=== PATIENT | female | born 1940 | race Caucasian/White ===

== ENCOUNTER 2021-10-25 18:44 | Inpatient (IN) ==
--- NOTE | 2021-10-25 19:31 | Emergency Department Note ---
Impression & Plan CHF (congestive heart failure), Hypertension, Hyperlipidemia, Diabetes ED Provider Note NAME: YVONNE CARTER AGE: 81 SEX: F : 1940 ARRIVES VIA: Walk-In INFORMANT: Patient, ED PROVIDER(S): Reynaldo Swanson MD Chief Complaint: Shortness of breath HPI: Patient presents due to concern for shortness of breath. The patient recently has moved from [place] to live with her daughter who lives locally in the [facility]. She has been taking her medications and reportedly does have a history of hypertension, hyperlipidemia, diabetes, and heart failure. She was diagnosed with fluid on her legs and has been complaining of some orthopnea. The patient does not complain of any cough or fever. 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 They have been doing daily dressing changes. During the move they did drive recently and were unable to find the medications that they had packed but the patient has had her standard medications in her purse. She does take a diuretic. The patient does not have any established care here in the [facility]. No reported fevers or chills. ROS: See HPI for pertinent positives and negatives. A total of 10 systems were reviewed and otherwise negative. Past medical history: See below Surgical history: See below Social history: See below Physical Exam: GENERAL: NAD, wearing a mask, non-toxic. EYE EXAM: Normal conjunctiva. PERRL, no anisocoria and EOM's grossly intact w/o pain. NECK: Supple, no nuchal rigidity, no adenopathy, non-tender. No signs of meningismus. FROM of the neck with good chin to chest and neck extension. No st ridor. Chest: Device in left chest. LUNGS: Bibasilar crackles. Normal chest wall mechanics. HEART: NSR, no MRG. ABDOMEN: Abdomen soft, non-tender, normo-active bowel sounds, no masses, no rebound or guarding. BACK: No CVA TTP. SKIN: No rashes and no bruising. UPPER EXTREMITIES: Upper extremities are grossly normal. LOWER EXTREMITIES: Right lower extremity with mild edema, left lower extremity with left BKA with healing incisional site. NEURO EXAM: A&O x3, cranial nerves II-XII grossly intact, normal speech, moves all 4 extremities. Differential diagnoses: Reactive airway disease, pneumonia, pneumothorax, COPD, CHF, infections, cardiac ischemia, pulmonary embolism, musculoskeletal, gastroin testinal, as well as other pathologies. Course: Patient was seen and evaluated the bedside. Full history physical exam was performed. EKG interpreted by V paced rhythm, rate of 80, wide QRS, left axis deviation. Imaging Studies: See Below Cardiac monitoring: An order was placed for continuous cardiac monitoring. The monitor shows a rate of 82 with sinus rhythm. MDM: Patient was seen due to concern for shortness of breath and orthopnea. Blood work obtained along with an EKG troponin chest x-ray and BNP. Patient's blood work did show elevation in BNP and positive troponin. The pat ient does have a paced rhythm with no priors for comparison. I did give the on- call hospitalist and the patient was admitted to medicine service by Dr. Burton. Past Med/Surg History Medical History CHF (congestive heart failure) Diabetes Hyperlipidemia Hypertension Surgical History History of left below knee amputation Pacemaker Family History Other No significant family history Social History Smoking Status: Former smoker Second Hand Exposure: No; Do You Dip or Chew Tobacco: No; Hx Alcohol Use: No Hx Substance Use: No Preferred Language: Portuguese Communication Ability: curriculum and assessment director Required: Yes Beliefs That Will Affect Care: None Current Living Situation: Family Other Information That Helps Us Care for You: No Feels Safe at Home: Yes Safety Concerns: Feels Safe At This Time Assistive Devices: Glasses, Walker and Wheelchair Allergies Allergies Allergy/AdvReac Type Severity Reaction Status Date / Time No Known Allergies Allergy Unverified 10/25/21 21:59 Home Meds Home Medications Medication Instructions Recorded Confirmed apixaban 5 mg tablet (Eliquis) 5 mg PO DAILY 10/25/21 10/25/21 atorvastatin 20 mg tablet 20 mg PO DAILY 10/25/21 10/25/21 enalapril 10 1 tab PO DAILY 10/25/21 10/25/21 mg-hydrochlorothiazide 25 mg tablet metformin 500 mg tablet 500 mg PO BID 10/25/21 10/25/21 Results & Data (ED) Vital Signs Vital Signs - 24 hr 10/25/21 18:51 10/25/21 19:51 10/25/21 21:50 Temperature 36.5 C Temperature Source Temporal Artery Scan Pulse Rate 77 Pulse Rate [Finger] 80 80 Pulse Rhythm Regular Pulse Strength Normal Respiratory Rate 16 18 18 Respiratory Effort / Characteristics Non-Labored Spontaneous Respiratory Depth Normal Respiratory Pattern Regular Blood Pressure 134/61 Blood Pressure [Right Arm] 138/60 138/61 Blood Pressure Mean 85 Blood Pressure Mean [Right Arm] 86 86 Blood Pressure Position Sitting Pulse Oximetry 90 100 98 Oxygen Delivery Method Room Air Room Air Room Air Sepsis Recent Fever Within 48 Hours No Sepsis New/Unexplained Change in Mental Status No Sepsis Action Taken by Nursing No Action Required Home Medications Current Medication List: was personally reviewed by me Laboratory Data Attestation: I reviewed the patient's lab results. Result diagrams: 10/26/21 04:17 10/26/21 02:39 Lab Results 10/25/21 10/25/21 10/25/21 Range/Units 19:53 19:53 19:53 WBC 4.63 L (4.8-10.8) K/ul RBC 3.75 L (3.93-5.22) M/uL Hgb 10.0 L (12.0-16.0) g/dl Hct 32.9 L (34.1-44.9) % MCV 87.7 (80.0-100.0) fL MCH 26.7 (25.0-34.0) pg MCHC 30.4 L (32.0-36.0) g/dL RDW Std Deviation 69.6 H (36.4-46.3) fL RDW Coeff of Edwardo 21.5 H (11.5-14.5) % Plt Count 195 (130-400) K/uL MPV 12.1 (9.4-12.3) fL Immature Gran % (Auto) 0.2 % Neut % (Auto) 51.5 % Lymph % (Auto) 40.8 % Hardin % (Auto) 6.5 % Eos % (Auto) 0.6 % Baso % (Auto) 0.4 % Neut # (Auto) 2.38 (1.4-6.5) K/uL Lymph # (Auto) 1.89 (1.2-3.4) K/uL Hardin # (Auto) 0.30 (0.24-0.82) K/uL Eos # (Auto) 0.03 (0-0.50) K/uL Baso # (Auto) 0.02 (0-0.2) K/uL Immature Gran # (Auto) 0.01 (0.00-0.02) K/uL Giant Platelets 1+ Polychromasia 1+ Anisocytosis Present Ovalocytes 1+ PT 11.7 (9.0-12.0) Seconds INR 1.1 (0.9-1.1) APTT 24.7 (21.0-31.0) Seconds PTT Ratio 0.9 Sodium 138 (136-145) mmol/L Potassium 3.2 L (3.5-5.1) mmol/L Chloride 102 (98-107) mmol/L Carbon Dioxide 26 (21-32) mmol/L Anion Gap 10 (3-11) BUN 18 (6-23) mg/dl Creatinine 0.97 (0.6-1.2) mg/dl Est Cr Clr Drug Dosing 33.2 ml/min Est GFR ( Amer) 63.9 ml/min Est GFR (Non-Af Amer) 55.2 ml/min BUN/Creatinine Ratio 18.6 (10-20) Glucose 132 H (70-99(Fasting)) mg/dl Calcium 9.4 (8.5-10.1) mg/dl Magnesium 1.8 (1.7-2.4) mg/dl Total Bilirubin 1.1 H (0.2-1.0) mg/dl AST 20 (13-39) U/L ALT 7 (7-52) U/L Alkaline Phosphatase 90 (34-104) U/L Troponin I High Sens 18.7 H (0-14) pg/ml B-Natriuretic Peptide (0-100) pg/ml Total Protein 8.3 (6.0-8.3) gm/dl Albumin 3.5 (3.4-5.0) gm/dl Globulin 4.8 H (2.5-4.0) gm/dl Albumin/Globulin Ratio 0.7 L (0.9-2) SARS-CoV-2, RNA, NAAT (NEGATIVE) 10/25/21 10/25/21 Range/Units 20:22 20:23 WBC (4.8-10.8) K/ul RBC (3.93-5.22) M/uL Hgb (12.0-16.0) g/dl Hct (34.1-44.9) % MCV (80.0-100.0) fL MCH (25.0-34.0) pg MCHC (32.0-36.0) g/dL RDW Std Deviation (36.4-46.3) fL RDW Coeff of Edwardo (11.5-14.5) % Plt Count (130-400) K/uL MPV (9.4-12.3) fL Immature Gran % (Auto) % Neut % (Auto) % Lymph % (Auto) % Hardin % (Auto) % Eos % (Auto) % Baso % (Auto) % Neut # (Auto) (1.4-6.5) K/uL Lymph # (Auto) (1.2-3.4) K/uL Hardin # (Auto) (0.24-0.82) K/uL Eos # (Auto) (0-0.50) K/uL Baso # (Auto) (0-0.2) K/uL Immature Gran # (Auto) (0.00-0.02) K/uL Giant Platelets Polychromasia Anisocytosis Ovalocytes PT (9.0-12.0) Seconds INR (0.9-1.1) APTT (21.0-31.0) Seconds PTT Ratio Sodium (136-145) mmol/L Potassium (3.5-5.1) mmol/L Chloride (98-107) mmol/L Carbon Dioxide (21-32) mmol/L Anion Gap (3-11) BUN (6-23) mg/dl Creatinine (0.6-1.2) mg/dl Est Cr Clr Drug Dosing ml/min Est GFR ( Amer) ml/min Est GFR (Non-Af Amer) ml/min BUN/Creatinine Ratio (10-20) Glucose (70-99(Fasting)) mg/dl Calcium (8.5-10.1) mg/dl Magnesium (1.7-2.4) mg/dl Total Bilirubin (0.2-1.0) mg/dl AST (13-39) U/L ALT (7-52) U/L Alkaline Phosphatase (34-104) U/L Troponin I High Sens (0-14) pg/ml B-Natriuretic Peptide 1179 H (0-100) pg/ml Total Protein (6.0-8.3) gm/dl Albumin (3.4-5.0) gm/dl Globulin (2.5-4.0) gm/dl Albumin/Globulin Ratio (0.9-2) SARS-CoV-2, RNA, NAAT NEGATIVE (NEGATIVE) Administered Medications Acetaminophen (Acetaminophen 325 Mg Tab) 650 mg PO Q4H PRN PRN Reason: pain/fever Stop: 11/25/21 00:23 Last Admin: 10/26/21 09:28 Dose: 650 mg Documented By: JEANNINE Apixaban (Apixaban 2.5 Mg Tab) 2.5 mg PO BID [place] Stop: 11/25/21 08:59 Last Admin: 10/26/21 09:26 Dose: 2.5 mg Documented By: JEANNINE Atorvastatin Calcium (Atorvastatin 20 Mg Tab) 20 mg PO DAILY [place] Stop: 11/25/21 08:59 Last Admin: 10/26/21 09:10 Dose: 20 mg Documented By: JEANNINE Enalapril Maleate (Enalapril Maleate 10 Mg Tab) 10 mg PO DAILY [place] Stop: 11/25/21 08:59 Last Admin: 10/26/21 09:10 Dose: 10 mg Documented By: JEANNINE Furosemide (Furosemide 40 Mg/4 Ml Vial) 40 mg IV DAILY [place] Stop: 11/25/21 08:59 Last Admin: 10/26/21 09:11 Dose: 40 mg Documented By: JEANNINE Hydrochlorothiazide (Hydrochlorothiazide 25 Mg Tab) 25 mg PO DAILY [place] Stop: 11/25/21 08:59 Last Admin: 10/26/21 09:10 Dose: 25 mg Documented By: JEANNINE Insulin Aspart (Insulin Aspart Per Unit) 0 units SC ACHS [place] Stop: 11/25/21 07:29 Last Admin: 10/26/21 13:02 Dose: Not Given Documented By: Admin: 10/26/21 09:08 Dose: Not Given Documented By: JEANNINE Magnesium Oxide (Magnesium Oxide 400 Mg Tab) 400 mg PO QAM [place] Stop: 10/27/21 22:29 Last Admin: 10/26/21 09:09 Dose: 400 mg Documented By: Admin: 10/26/21 02:18 Dose: 400 mg Documented By: BCEnedelia Discontinued Medications Furosemide (Furosemide 40 Mg/4 Ml Vial) 40 mg IV ONE ONE Stop: 10/25/21 21:27 Last Admin: 10/25/21 22:25 Dose: 40 mg Documented By: TRH Potassium Chloride (Potassium Chloride Crtab 20 Meq Tabcr) 40 meq PO NOW STA Stop: 10/25/21 21:27 Last Admin: 10/25/21 22:24 Dose: 40 meq Documented By: TRH Imaging Data Radiologist's Impression: Chest X-Ray 10/25/21 20:01 XR chest 1V portable HISTORY: 81 years-old Female Dyspnea acute shortness of breath COMPARISON: None TECHNIQUE: AP view of the chest FINDINGS: The cardiac silhouette is enlarged. Left subclavian pacer. Atherosclerosis of the thoracic aorta. No pneumothorax or overt pulmonary edema. Trace pleural effusions with mild left basilar densities. Degenerative changes of the shoulders and spine. IMPRESSION: 1. Cardiomegaly without overt pulmonary edema. 2. Trace pleural effusions with mild left basilar opacities, likely atelectatic. ACT 112: Negative or not required by law. The above report was generated using voice recognition software. It may contain grammatical, syntax or spelling errors. Electronically signed by: Allen Mcclellan M.D. 10/26/2021 8:23 AM Discharge Plan Visit Data Chief Complaint: Pain (Generalized) Stated Complaint: GENERAL PAIN ED Provider: Reynaldo Swanson Discharge Problem: CHF (congestive heart failure), Hypertension, Hyperlipidemia, Diabetes Patient Disposition: Admitted As Inpatient Discharge Instructions Interventions: ED Discharge Assessment Last Done: 10/25/21 23:18
[2021-10-25 20:21] LABS: Hematocrit (blood only) 32.9 % (34.1-44.9); Mean Corpuscular Hemoglobin 26.7 pg (25.0-34.0); Mean Corpuscular Hgb Conc 30.4 g/dL (32.0-36.0); Mean Corpuscular Volume 87.7 fL (80.0-100.0); RDW Coefficient of Variation 21.5 % (11.5-14.5); RDW Standard Deviation 69.6 fL (36.4-46.3); Red Blood Count 3.75 M/uL (3.93-5.22); White Blood Count 4.63 K/ul (4.8-10.8)
[2021-10-25 20:26] LABS: Mean Platelet Volume 12.1 fL (9.4-12.3); Platelet Count 195 K/uL (130-400)
[2021-10-25 20:41] LABS: Anisocytosis Present; Basophils # (auto) 0.02 K/uL (0-0.2); Basophils % (auto) 0.4 %; Eosinophils # (auto) 0.03 K/uL (0-0.50); Eosinophils % (auto) 0.6 %; Giant Platelets 1+; Immature Granulocytes # (auto) 0.01 K/uL (0.00-0.02); Immature Granulocytes % (auto) 0.2 %; Lymphocytes # (auto) 1.89 K/uL (1.2-3.4); Lymphocytes % (auto) 40.8 %; Monocytes % (auto) 6.5 %; Neutrophils # (auto) 2.38 K/uL (1.4-6.5); Neutrophils % (auto) 51.5 %; Ovalocytes 1+; Polychromasia 1+
[2021-10-25 20:52] LABS: Troponin I High Sensitivity 18.7 pg/ml (0-14)
[2021-10-25 20:53] LABS: Albumin Globulin Ratio 0.7 (0.9-2); Albumin Level 3.5 gm/dl (3.4-5.0); BUN Creatinine Ratio 18.6 (10-20); Bilirubin,Total 1.1 mg/dl (0.2-1.0); Calcium 9.4 mg/dl (8.5-10.1); Creatinine Clr Calc Pharmacy 33.2 ml/min; Est GFR (African American) 63.9 ml/min; Est GFR (Non-African American) 55.2 ml/min; Globulin 4.8 gm/dl (2.5-4.0); Magnesium 1.8 mg/dl (1.7-2.4); Potassium 3.2 mmol/L (3.5-5.1); Total Protein 8.3 gm/dl (6.0-8.3)
[2021-10-25 21:00] LABS: INR 1.1 (0.9-1.1); Partial Thromboplastin Ratio 0.9; Partial Thromboplastin Time 24.7 Seconds (21.0-31.0); Prothrombin Time 11.7 Seconds (9.0-12.0)
[2021-10-25] MEDS ORDERED: FUROSEMIDE 40 MG/4 ML VIAL IV ONE (21:26)
[2021-10-25] MEDS ORDERED: POTASSIUM CHLORIDE CRTAB 20 MEQ TABCR PO STA (21:26)
--- NOTE | 2021-10-25 22:36 | History & Physical Report ---
Date of Service October 25, 2021 Assessment & Plan (1) CHF (congestive heart failure): Plan: Patient appears to be in acute decompensated CHF. She is saturating well on room air with no distress. HD stable -Lasix 40mg IV given -Continue Lasix 40mg IV daily -Monitor daily weights -Monitor I/Os -Electrolyte repletion as needed -Continue Enaqlapril-HCTZ -?history of atrial fibrillation necessitating anticoagulation - patient seems to be in SR now -Check EKG -Will try to obtain records from PCP as well as Cardiology -If no recent echo will order one (2) Diabetes: Plan: Patient on Metformin -Hold Metformin -Check HgbA1C -ISS, goal blood sugar 100 - 140 (3) Hyperlipidemia: Plan: Chronic -Check lipid panel -Continue Atorvastatin (4) Hypertension: Plan: Blood pressure stable -Continue Enalapril Plan Patient will need to establish care with PCP as well as Cardiology prior to DC History of Present Illness Chief Complaint: SOB Primary Care Provider: NO PCP Darleen Davey is an 81yo female presenting with complaint of SOB that started today. Patient is of [place] descent. She was previously residing in [place], [place] but has recently moved to [place] to live with her daughter. Daughter is present during interview. Patient prefers communication in Maldivian. Patient reports SOB that started earlier today around 16:00 as well as worsening orthopnea and edema as well as dull central chest pressure. She denies fever, chills, cough, abdominal pain, nausea, vomiting, diarrhea. 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 She has been healing well. Family has been assisting her with dressing changes. She does have some pain at the stump after accidentally bumping it twice during transfers but overall is not in pain at the surgical site. No bleeding, drainage or dehiscence. ER: Lasix 40mg IV, KCL Allergies Allergy/AdvReac Type Severity Reaction Status Date / Time No Known Allergies Allergy Unverified 10/25/21 21:59 Home Medications Medication Instructions Recorded Confirmed Type apixaban 5 mg tablet (Eliquis) 5 mg PO DAILY 10/25/21 10/25/21 History atorvastatin 20 mg tablet 20 mg PO DAILY 10/25/21 10/25/21 History enalapril 10 1 tab PO DAILY 10/25/21 10/25/21 History mg-hydrochlorothiazide 25 mg tablet metformin 500 mg tablet 500 mg PO BID 10/25/21 10/25/21 History Past Med/Surg History Medical History (Updated 10/25/21 @ 23:23 by Kallie Burton DO) CHF (congestive heart failure) Diabetes Hyperlipidemia Hypertension Surgical History (Updated 10/25/21 @ 23:32 by Kallie Burton DO) History of left below knee amputation Pacemaker Family History (Updated 10/25/21 @ 23:24 by Kallie Burton DO) Other No significant family history Social History Smoking Status: Former smoker Second Hand Exposure: No; Do You Dip or Chew Tobacco: No; Hx Alcohol Use: No Hx Substance Use: No Preferred Language: Maldivian Communication Ability: size tester Required: Yes Beliefs That Will Affect Care: None Current Living Situation: Family Other Information That Helps Us Care for You: No Feels Safe at Home: Yes Safety Concerns: Feels Safe At This Time Assistive Devices: Glasses, Walker and Wheelchair Review of Systems Review of Systems: All systems reviewed & are unremarkable except as noted in HPI & below Physical Exam Physical Exam: General: patient resting comfortably, NAD, non-toxic in a ppearance, AA&O x 4 Skin: warm, dry, post-operative eschar with no erythema, drainage, bleeding or dehiscence HEENT: NC/AT, PERRL, EOMI, anicteric sclera, conjunctiva without injection, external ear normal to inspection and nontender, nares patent, moist mucus membranes, dentition intact, no oropharyngeal lesions, neck supple, trachea midline, no LAD, no thyromegaly, no JVD Heart: +S1/S2, regular, 2/6 [place] at right 2nd ICS across precordium Lungs: equal air entry bilaterally, +rales bilaterally Abd: +BS, soft, NT/ND, no masses/organomegaly/ascites Ext: warm, 2+ pulses in UE/LE bilaterally, no clubbing/cyanosis, s/p left BKA, trace pitting edema of LLE Neuro: nonfocal, patient AA&O x 4, speech intact, no facial droop, moving all extremities on command with equal strength 5/5 Results & Data Results & Data ([facility]) Vital Signs (Past 12 Hours) Vital Signs Temp Pulse Pulse Resp BP BP Pulse Ox 10/25/21 21:50 80 18 138/61 98 10/25/21 19:51 80 18 138/60 100 10/25/21 18:51 36.5 C 77 16 134/61 90 O2 Del Method 10/25/21 21:50 Room Air 10/25/21 19:51 Room Air 10/25/21 18:51 Room Air Laboratory Results Laboratory Results WBC 4.63 K/ul (4.8-10.8) L 10/25/21 19:53 RBC 3.75 M/uL (3.93-5.22) L 10/25/21 19:53 Hgb 10.0 g/dl (12.0-16.0) L 10/25/21 19:53 Hct 32.9 % (34.1-44.9) L 10/25/21 19:53 MCV 87.7 fL (80.0-100.0) 10/25/21 19:53 MCH 26.7 pg (25.0-34.0) 10/25/21 19:53 MCHC 30.4 g/dL (32.0-36.0) L 10/25/21 19:53 RDW Std Deviation 69.6 fL (36.4-46.3) H 10/25/21 19:53 RDW Coeff of Edwardo 21.5 % (11.5-14.5) H 10/25/21 19:53 Plt Count 195 K/uL (130-400) 10/25/21 19:53 MPV 12.1 fL (9.4-12.3) 10/25/21 19:53 Immature Gran % (Auto) 0.2 % 10/25/21 19:53 Neut % (Auto) 51.5 % 10/25/21 19:53 Lymph % (Auto) 40.8 % 10/25/21 19:53 [place] % (Auto) 6.5 % 10/25/21 19:53 Eos % (Auto) 0.6 % 10/25/21 19:53 Baso % (Auto) 0.4 % 10/25/21 19:53 Neut # (Auto) 2.38 K/uL (1.4-6.5) 10/25/21 19:53 Lymph # (Auto) 1.89 K/uL (1.2-3.4) 10/25/21 19:53 Charlotte # (Auto) 0.30 K/uL (0.24-0.82) 10/25/21 19:53 Eos # (Auto) 0.03 K/uL (0-0.50) 10/25/21 19:53 Baso # (Auto) 0.02 K/uL (0-0.2) 10/25/21 19:53 Immature Gran # (Auto) 0.01 K/uL (0.00-0.02) 10/25/21 19:53 Giant Platelets 1+ 10/25/21 19:53 Polychromasia 1+ 10/25/21 19:53 Anisocytosis Present 10/25/21 19:53 Ovalocytes 1+ 10/25/21 19:53 PT 11.7 Seconds (9.0-12.0) 10/25/21 19:53 INR 1.1 (0.9-1.1) 10/25/21 19:53 APTT 24.7 Seconds (21.0-31.0) 10/25/21 19:53 PTT Ratio 0.9 10/25/21 19:53 Sodium 138 mmol/L (136-145) 10/25/21 19:53 Potassium 3.2 mmol/L (3.5-5.1) L 10/25/21 19:53 Chloride 102 mmol/L (98-107) 10/25/21 19:53 Carbon Dioxide 26 mmol/L (21-32) 10/25/21 19:53 Anion Gap 10 (3-11) 10/25/21 19:53 BUN 18 mg/dl (6-23) 10/25/21 19:53 Creatinine 0.97 mg/dl (0.6-1.2) 10/25/21 19:53 Est Cr Clr Drug Dosing 33.2 ml/min 10/25/21 19:53 Est GFR ( Amer) 63.9 ml/min 10/25/21 19:53 Est GFR (Non-Af Amer) 55.2 ml/min 10/25/21 19:53 BUN/Creatinine Ratio 18.6 (10-20) 10/25/21 19:53 Glucose 132 mg/dl (70-99(Fasting)) H 10/25/21 19:53 Calcium 9.4 mg/dl (8.5-10.1) 10/25/21 19:53 Magnesium 1.8 mg/dl (1.7-2.4) 10/25/21 19:53 Total Bilirubin 1.1 mg/dl (0.2-1.0) H 10/25/21 19:53 AST 20 U/L (13-39) 10/25/21 19:53 ALT 7 U/L (7-52) 10/25/21 19:53 Alkaline Phosphatase 90 U/L (34-104) 10/25/21 19:53 Troponin I High Sens 18.7 pg/ml (0-14) H 10/25/21 19:53 B-Natriuretic Peptide 1179 pg/ml (0-100) H 10/25/21 20:23 Total Protein 8.3 gm/dl (6.0-8.3) 10/25/21 19:53 Albumin 3.5 gm/dl (3.4-5.0) 10/25/21 19:53 Globulin 4.8 gm/dl (2.5-4.0) H 10/25/21 19:53 Albumin/Globulin Ratio 0.7 (0.9-2) L 10/25/21 19:53 SARS-CoV-2, RNA, NAAT NEGATIVE (NEGATIVE) 10/25/21 20:22 Code Status & VTE Plan Code Status Full Code VTE Prophylaxis Plan VTE Prophylaxis will be ordered: Yes PG Care Time/CCT Total # of Minutes Spent Total Time Spent with Patient: Total time spent is greater than 50% in coordination of care (as documented) at patient's floor/unit and/or counseling patient: Coding Level of Care Code 13600 Initial Inpt Care Lvl 3 Diagnoses CHF (congestive heart failure) I50.9 Diabetes E11.9 Hyperlipidemia E78.5 Hypertension I10
[2021-10-26] MEDS ORDERED: GLUCOSE 40% GEL 15 GM TUBE PO PRN (00:24)
[2021-10-26] MEDS ORDERED: GLUCAGON FOR INJ 1 MG VIAL SQ PRN (00:24)
[2021-10-26] MEDS ORDERED: GLUCOSE 10 TAB/TUBE PO PRN (00:24)
[2021-10-26] MEDS ORDERED: CARBOHYDRATES FOR HYPOGLYCEMIA PO PRN (00:24)
[2021-10-26] MEDS ORDERED: ONDANSETRON INJ 2 MG/ML 2 ML VIAL IV PRN (00:24)
[2021-10-26] MEDS ORDERED: DEXTROSE 50% 50 ML SYRINGE IV PRN (00:24)
[2021-10-26] MEDS: MAGNESIUM OXIDE 400 MG TAB PO SCH ×2 (02:18→09:09)
[2021-10-26 03:19] LABS: BUN Creatinine Ratio 19.1 (10-20); Calcium 9.3 mg/dl (8.5-10.1); Chol HDL Ratio 4.1 (0-5); Creatinine Clr Calc Pharmacy 34.3 ml/min; Est GFR (African American) 66.4 ml/min; Est GFR (Non-African American) 57.3 ml/min; Potassium 3.5 mmol/L (3.5-5.1)
[2021-10-26 04:51] LABS: Hematocrit (blood only) 34.7 % (34.1-44.9); Hemoglobin 10.8 g/dl (12.0-16.0); Mean Corpuscular Hemoglobin 27.1 pg (25.0-34.0); Mean Corpuscular Hgb Conc 31.1 g/dL (32.0-36.0); RDW Coefficient of Variation 21.4 % (11.5-14.5); RDW Standard Deviation 68.3 fL (36.4-46.3); Red Blood Count 3.99 M/uL (3.93-5.22); White Blood Count 4.45 K/ul (4.8-10.8)
[2021-10-26 05:18] LABS: Mean Platelet Volume 11.8 fL (9.4-12.3); Platelet Count 200 K/uL (130-400)
[2021-10-26 05:19] LABS: Basophils # (auto) 0.02 K/uL (0-0.2); Basophils % (auto) 0.4 %; Eosinophils # (auto) 0.02 K/uL (0-0.50); Eosinophils % (auto) 0.4 %; Immature Granulocytes # (auto) 0.01 K/uL (0.00-0.02); Immature Granulocytes % (auto) 0.2 %; Lymphocytes # (auto) 1.95 K/uL (1.2-3.4); Lymphocytes % (auto) 43.8 %; Monocytes # (auto) 0.22 K/uL (0.24-0.82); Monocytes % (auto) 4.9 %; Neutrophils # (auto) 2.23 K/uL (1.4-6.5); Neutrophils % (auto) 50.3 %; Platelet Estimate Normal (Normal); Polychromasia 1+
--- NOTE | 2021-10-26 07:28 | Hospitalist Progress Note ---
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 CHF (congestive heart failure) Patient appears to be in acute decompensated CHF.She is saturating well on room air with no distress. HD stable. Does have pacemaker in place since last year, reason unknown. -Lasix 40mg IV given in ED -BNP 1179 -Cr wnl -Cont. Lasix 40mg IV daily -Monitor daily weights, I/Os -Electrolyte repletion as needed -Cont. Enalapril-HCTZ -CXR: cardiomegaly, trace pleural effusions with mild left basilar opacities likely atelectasis -Echo pending -Will try to obtain records from PCP and Cardiology from [place] -consider cardio consult depending on echo results; will at the least need to be established with cardiology for outpatient f/u for extensive heart history -trend bmp Anemia, improving -hgb 10 on admission, baseline unknown; 10.8 (10/26) -normal MCV -ddx iron deficiency, anemia of chronic disease -iron and ferritin are low normal; consider iron supplementation -trend cbc ?H/o afib -EKG: ventricularly paced, sinus rhythm -not on rate control -cont. Eliquis 2.5mg bid; ?no indication for home dose of 5mg daily Diabetes, type 2 Patient on Metformin -Hold Metformin -HgbA1C pending -ISS, goal blood sugar 100 - 140 Hyperlipidemia Chronic -Lipid panel wnl -Cont. Atorvastatin Hypertension Blood pressure stable -Cont. Enalapril-HCTZ DVT ppx: Eliquis 2.5mg bid FEN/GI: DM2, HH, low Na Code Status: Full Dispo: med tele (2) Diabetes: (3) Hyperlipidemia: (4) Hypertension: (5) Anemia: Admission and Anticipated Discharge Date Admission Date: October 25, 2021 Supervising Physician Co-Signing Physician Notes Patient seen and examined with PGY-2 Dr. Mcnulty. Agree with history, exam findings, assessment and plan of care as outlined. In brief, Ms Davey is an 81 year old female with history of DM, pAF, HLD/HDL admitted with new dyspnea and orthopnea. Interview done with video seismic interpreter. Feels that edema is slightly better today. No chest pain or shortness of breath. Does not recall history of AK. Does not recall being told she has atrial fibrillation. No known history of heart failure exacerbation. Follows a low salt diet at home. VS and nursing notes reviewed. Non-toxic appearing. Heart with regular rate and rhythm. 3/6 systolic murmur. +2 pitting edema to the right LE. Right BKA. Dressing to the amputation stump is clean, dry, and in tact. Lungs with soft crackles in the bases. Labs and imaging reviewed. 1. Acute decompensated HFrEF. Unable to view CXR that was done in the ED. BNP is elevated. EKG without acute ischemic changes. Based on TTE, likely ischemic etiology of HF. Diuresing with 40mg IV Lasix daily. Monitor Cr, K. Monitor I/Os. Monitor daily weights. TTE here with EF 40-45%, hypokinesis of the anterior wall, distal anterolateral wall, mid inferoseptum and mid inferior wall segments. Akinesis of the apex. No LVH. Noted moderate aortic stenosis with mild regurg, moderate to severe mitral annular calcification, moderate mitral regurgitation, moderate tricuspid regurgitation. Small pericardial effusion without evidence of tamponade. Mild pulm HTN (RVSP 38mmHg). LDL is 93. Could benefit from an increase in statin to high intensity (ie atorvastatin 40mg) to get her LDL to goal of < 70. 2. Paroxysmal atrial fibrillation. Has been in a paced rhythm. Anticoagulated with Eliquis. Per home med rec, Eliquis 5mg, but more appropriate dosing is 2.5mg BID. 3. Pacer, unclear of exact etiology this was placed for. 4. HTN. Continue enalapril 10mg. Hold home HCTZ since she is being diuresed with a loop diuretic. 5. Diabetes Type 2. Holding home metformin. Sliding scale insulin. A1C pendin g. 6. Normocytic anemia. Hgb 10.8. Unknown baseline. Iron studies pending. Dispo: pending adequate diuresis. Would benefit from follow up with HF clinic here. At discharge, will plan to set up follow up with [facility] FCM[facility] García. Subjective Patient seen at bedside this morning. Horologist Apprentice used. Ramya historian of medical history. Admitted for 1 day SOB. Recently moved from [place] and was seeing banking paralegal there. Had pacemaker placed last year, reason unknown. She is also unfamiliar trial fibrillation and why she is on a blood thinner. Denies history of blood clots. She has been hospitalized for similar reason in the distant past, but no hospitalizations over the last year. Yet to follow with any doctors in the [place] area. Previously seeing Dr. Gastelum at [facility] for her heart. She does think she feels better air movement through her lungs today versus admission but still congested. Denies chest pain, HAN, N/V. R leg less edema than previous. Review of Systems Review of Systems: All systems reviewed & are unremarkable except as noted in HPI & below Physical Exam Physical Exam: General: resting comfortably, NAD, awake, AOx4 HEENT: NCAT, EOMI, +bilateral cataracts, anicteric sclera, conjunctiva without injection, moist mucus membranes Neck: trachea midline, +JVD Heart:+S1/S2 Lungs:CTAB, mildly diminished but equal air entry bilaterally Abd:soft, nontender, nondistended, no masses Ext: 2+ distal pulses in R LE bilaterally, s/p left BKA, trace pitting edema of RLE Neuro: nonfocal, speech intact Skin:warm, dry, L LE stump bandaged s/p BKA. Results & Data Results & Data ([facility]) Vital Signs (Past 12 Hours) Vital Signs Temp Pulse Pulse Resp BP BP Pulse Ox 10/26/21 03:36 36.7 C 80 18 132/75 94 10/26/21 02:48 10/26/21 00:26 80 10/26/21 01:42 10/26/21 01:39 36.5 C 80 18 138/72 92 10/25/21 23:18 80 18 135/70 98 10/25/21 21:50 80 18 138/61 98 10/25/21 19:51 80 18 138/60 100 O2 Del Method O2 Flow Rate 10/26/21 03:36 Nasal Cannula 2 10/26/21 02:48 Nasal Cannula 1 10/26/21 00:26 10/26/21 01:42 Room Air 10/26/21 01:39 Room Air 10/25/21 23:18 Room Air 10/25/21 21:50 Room Air 10/25/21 19:51 Room Air Laboratory Results 10/26/21 10/26/21 10/26/21 Range/Units 11:40 07:47 04:17 WBC (4.8-10.8) K/ul RBC (3.93-5.22) M/uL Hgb (12.0-16.0) g/dl Hct (34.1-44.9) % MCV (80.0-100.0) fL MCH (25.0-34.0) pg MCHC (32.0-36.0) g/dL RDW Std Deviation (36.4-46.3) fL RDW Coeff of Edwardo (11.5-14.5) % Plt Count (130-400) K/uL MPV (9.4-12.3) fL Immature Gran % (Auto) % Neut % (Auto) % Lymph % (Auto) % [place] % (Auto) % Eos % (Auto) % Baso % (Auto) % Neut # (Auto) (1.4-6.5) K/uL Lymph # (Auto) (1.2-3.4) K/uL [place] # (Auto) (0.24-0.82) K/uL Eos # (Auto) (0-0.50) K/uL Baso # (Auto) (0-0.2) K/uL Immature Gran # (Auto) (0.00-0.02) K/uL Absolute Nucleated RBC Nucleated RBC % (auto) Neutrophils % (Manual) Band Neutrophils % Lymphocytes % (Manual) Prolymphocyte % Reactive Lymphs % (Man) Monocytes % (Manual) Eosinophils % (Manual) Basophils % (Manual) Metamyelocytes % (Man) Myelocytes % (Man) Promyelocytes % (Man) Blast Cells % (Manual) Plasma Cell % (Manual) Other Cells % Nucleated RBC % Neutrophils # (Manual) Band Neutrophils # Total Absolute Neuts Lymphocytes # (Manual) Prolymphocyte # Reactive Lymphs # Total Abs Lymphocytes Monocytes # (Manual) Eosinophils # (Manual) Basophils # (Manual) Metamyelocytes # (Man) Myelocytes # (Manual) Promyelocytes # (Man) Blast Cells # (Man) Plasma Cell # (Manual) Other Cells # Nucleated RBCs # (Man) Hypersegmented Neuts Hyposegmented Neuts Hypogranular Neuts Large Granular Lymphs # Lrg Granular Lymphs Hairy Cells Smudge Cells Toxic Granulation Toxic Vacuolation Dohle Bodies Carlos Alberto Rods Platelet Estimate Hypogranular Platelets Clumped Platelets Giant Platelets Platelet Satelliting RBC Morphology Polychromasia Hypochromasia Poikilocytosis Basophilic Stippling Anisocytosis Microcytosis Macrocytosis Spherocytes Pappenheimer Bodies Sickle Cells Target Cells Tear Drop Cells Ovalocytes Stomatocytes Dey-Swartz Bodies Echinocytes Acanthocytes (Spur) Rouleaux RBC Agglutinates Schistocytes Sezary Cell PT (9.0-12.0) Seconds INR (0.9-1.1) APTT (21.0-31.0) Seconds PTT Ratio Sodium (136-145) mmol/L Potassium (3.5-5.1) mmol/L Chloride (98-107) mmol/L Carbon Dioxide (21-32) mmol/L Anion Gap (3-11) BUN (6-23) mg/dl Creatinine (0.6-1.2) mg/dl Est Cr Clr Drug Dosing ml/min Est GFR ( Amer) ml/min Est GFR (Non-Af Amer) ml/min BUN/Creatinine Ratio (10-20) Glucose (70-99(Fasting)) mg/dl POC Glucose 115 H 130 H (70-99) mg/dl Estimat Average Glucose Hemoglobin A1c Calcium (8.5-10.1) mg/dl Magnesium (1.7-2.4) mg/dl Iron 38 (35-150) mcg/dl TIBC 394 (250-450) mcg/dl Unsaturated IBC 356 H (155-355) mcg/dl Transferrin % Sat 10 L (15-50) % Ferritin 59.2 (8-388) ng/ml Total Bilirubin (0.2-1.0) mg/dl AST (13-39) U/L ALT (7-52) U/L Alkaline Phosphatase (34-104) U/L Troponin I High Sens (0-14) pg/ml B-Natriuretic Peptide (0-100) pg/ml Total Protein (6.0-8.3) gm/dl Albumin (3.4-5.0) gm/dl Globulin (2.5-4.0) gm/dl Albumin/Globulin Ratio (0.9-2) Triglycerides (0-150) mg/dl Cholesterol (0-200) mg/dl LDL Cholesterol, Calc mg/dl VLDL Cholesterol, Calc (0-30) mg/dl HDL Cholesterol mg/dl Cholesterol/HDL Ratio (0-5) TSH SARS-CoV-2, RNA, NAAT (NEGATIVE) Blood Parasites ID 10/26/21 10/26/21 10/26/21 Range/Units 04:17 04:17 04:17 WBC 4.45 L (4.8-10.8) K/ul RBC 3.99 (3.93-5.22) M/uL Hgb 10.8 L (12.0-16.0) g/dl Hct 34.7 (34.1-44.9) % MCV 87.0 (80.0-100.0) fL MCH 27.1 (25.0-34.0) pg MCHC 31.1 L (32.0-36.0) g/dL RDW Std Deviation 68.3 H (36.4-46.3) fL RDW Coeff of Edwardo 21.4 H (11.5-14.5) % Plt Count 200 (130-400) K/uL MPV 11.8 (9.4-12.3) fL Immature Gran % (Auto) 0.2 % Neut % (Auto) 50.3 % Lymph % (Auto) 43.8 % [place] % (Auto) 4.9 % Eos % (Auto) 0.4 % Baso % (Auto) 0.4 % Neut # (Auto) 2.23 (1.4-6.5) K/uL Lymph # (Auto) 1.95 (1.2-3.4) K/uL [place] # (Auto) 0.22 L (0.24-0.82) K/uL Eos # (Auto) 0.02 (0-0.50) K/uL Baso # (Auto) 0.02 (0-0.2) K/uL Immature Gran # (Auto) 0.01 (0.00-0.02) K/uL Absolute Nucleated RBC Nucleated RBC % (auto) Neutrophils % (Manual) Band Neutrophils % Lymphocytes % (Manual) Prolymphocyte % Reactive Lymphs % (Man) Monocytes % (Manual) Eosinophils % (Manual) Basophils % (Manual) Metamyelocytes % (Man) Myelocytes % (Man) Promyelocytes % (Man) Blast Cells % (Manual) Plasma Cell % (Manual) Other Cells % Nucleated RBC % Neutrophils # (Manual) Band Neutrophils # Total Absolute Neuts Lymphocytes # (Manual) Prolymphocyte # Reactive Lymphs # Total Abs Lymphocytes Monocytes # (Manual) Eosinophils # (Manual) Basophils # (Manual) Metamyelocytes # (Man) Myelocytes # (Manual) Promyelocytes # (Man) Blast Cells # (Man) Plasma Cell # (Manual) Other Cells # Nucleated RBCs # (Man) Hypersegmented Neuts Hyposegmented Neuts Hypogranular Neuts Large Granular Lymphs # Lrg Granular Lymphs Hairy Cells Smudge Cells Toxic Granulation Toxic Vacuolation Dohle Bodies Carlos Alberto Rods Platelet Estimate Normal Hypogranular Platelets Clumped Platelets Giant Platelets Platelet Satelliting RBC Morphology Polychromasia 1+ Hypochromasia Poikilocytosis Basophilic Stippling Anisocytosis Microcytosis Macrocytosis Spherocytes Pappenheimer Bodies Sickle Cells Target Cells Tear Drop Cells Ovalocytes Stomatocytes Dey-Swartz Bodies Echinocytes Acanthocytes (Spur) Rouleaux RBC Agglutinates Schistocytes Sezary Cell PT (9.0-12.0) Seconds INR (0.9-1.1) APTT (21.0-31.0) Seconds PTT Ratio Sodium (136-145) mmol/L Potassium (3.5-5.1) mmol/L Chloride (98-107) mmol/L Carbon Dioxide (21-32) mmol/L Anion Gap (3-11) BUN (6-23) mg/dl Creatinine (0.6-1.2) mg/dl Est Cr Clr Drug Dosing ml/min Est GFR ( Amer) ml/min Est GFR (Non-Af Amer) ml/min BUN/Creatinine Ratio (10-20) Glucose (70-99(Fasting)) mg/dl POC Glucose (70-99) mg/dl Estimat Average Glucose Hemoglobin A1c Calcium (8.5-10.1) mg/dl Magnesium (1.7-2.4) mg/dl Iron (35-150) mcg/dl TIBC (250-450) mcg/dl Unsaturated IBC (155-355) mcg/dl Transferrin % Sat (15-50) % Ferritin (8-388) ng/ml Total Bilirubin (0.2-1.0) mg/dl AST (13-39) U/L ALT (7-52) U/L Alkaline Phosphatase (34-104) U/L Troponin I High Sens 18.5 H (0-14) pg/ml B-Natriuretic Peptide (0-100) pg/ml Total Protein (6.0-8.3) gm/dl Albumin (3.4-5.0) gm/dl Globulin (2.5-4.0) gm/dl Albumin/Globulin Ratio (0.9-2) Triglycerides (0-150) mg/dl Cholesterol (0-200) mg/dl LDL Cholesterol, Calc mg/dl VLDL Cholesterol, Calc (0-30) mg/dl HDL Cholesterol mg/dl Cholesterol/HDL Ratio (0-5) TSH 3.470 SARS-CoV-2, RNA, NAAT (NEGATIVE) Blood Parasites ID 10/26/21 10/26/21 10/26/21 Range/Units 04:17 02:39 02:39 WBC (4.8-10.8) K/ul RBC (3.93-5.22) M/uL Hgb (12.0-16.0) g/dl Hct (34.1-44.9) % MCV (80.0-100.0) fL MCH (25.0-34.0) pg MCHC (32.0-36.0) g/dL RDW Std Deviation (36.4-46.3) fL RDW Coeff of Edwardo (11.5-14.5) % Plt Count (130-400) K/uL MPV (9.4-12.3) fL Immature Gran % (Auto) % Neut % (Auto) % Lymph % (Auto) % [place] % (Auto) % Eos % (Auto) % Baso % (Auto) % Neut # (Auto) (1.4-6.5) K/uL Lymph # (Auto) (1.2-3.4) K/uL [place] # (Auto) (0.24-0.82) K/uL Eos # (Auto) (0-0.50) K/uL Baso # (Auto) (0-0.2) K/uL Immature Gran # (Auto) (0.00-0.02) K/uL Absolute Nucleated RBC Nucleated RBC % (auto) Neutrophils % (Manual) Band Neutrophils % Lymphocytes % (Manual) Prolymphocyte % Reactive Lymphs % (Man) Monocytes % (Manual) Eosinophils % (Manual) Basophils % (Manual) Metamyelocytes % (Man) Myelocytes % (Man) Promyelocytes % (Man) Blast Cells % (Manual) Plasma Cell % (Manual) Other Cells % Nucleated RBC % Neutrophils # (Manual) Band Neutrophils # Total Absolute Neuts Lymphocytes # (Manual) Prolymphocyte # Reactive Lymphs # Total Abs Lymphocytes Monocytes # (Manual) Eosinophils # (Manual) Basophils # (Manual) Metamyelocytes # (Man) Myelocytes # (Manual) Promyelocytes # (Man) Blast Cells # (Man) Plasma Cell # (Manual) Other Cells # Nucleated RBCs # (Man) Hypersegmented Neuts Hyposegmented Neuts Hypogranular Neuts Large Granular Lymphs # Lrg Granular Lymphs Hairy Cells Smudge Cells Toxic Granulation Toxic Vacuolation Dohle Bodies Carlos Alberto Rods Platelet Estimate Hypogranular Platelets Clumped Platelets Giant Platelets Platelet Satelliting RBC Morphology Polychromasia Hypochromasia Poikilocytosis Basophilic Stippling Anisocytosis Microcytosis Macrocytosis Spherocytes Pappenheimer Bodies Sickle Cells Target Cells Tear Drop Cells Ovalocytes Stomatocytes Dey-Swartz Bodies Echinocytes Acanthocytes (Spur) Rouleaux RBC Agglutinates Schistocytes Sezary Cell PT (9.0-12.0) Seconds INR (0.9-1.1) APTT (21.0-31.0) Seconds PTT Ratio Sodium 135 L (136-145) mmol/L Potassium 3.5 (3.5-5.1) mmol/L Chloride 102 (98-107) mmol/L Carbon Dioxide 21 (21-32) mmol/L Anion Gap 12 H (3-11) BUN 18 (6-23) mg/dl Creatinine 0.94 (0.6-1.2) mg/dl Est Cr Clr Drug Dosing 34.3 ml/min Est GFR ( Amer) 66.4 ml/min Est GFR (Non-Af Amer) 57.3 ml/min BUN/Creatinine Ratio 19.1 (10-20) Glucose 123 H (70-99(Fasting)) mg/dl POC Glucose (70-99) mg/dl Estimat Average Glucose Pending Hemoglobin A1c Pending Calcium 9.3 (8.5-10.1) mg/dl Magnesium (1.7-2.4) mg/dl Iron (35-150) mcg/dl TIBC (250-450) mcg/dl Unsaturated IBC (155-355) mcg/dl Transferrin % Sat (15-50) % Ferritin (8-388) ng/ml Total Bilirubin (0.2-1.0) mg/dl AST (13-39) U/L ALT (7-52) U/L Alkaline Phosphatase (34-104) U/L Troponin I High Sens Cancelled (0-14) pg/ml B-Natriuretic Peptide (0-100) pg/ml Total Protein (6.0-8.3) gm/dl Albumin (3.4-5.0) gm/dl Globulin (2.5-4.0) gm/dl Albumin/Globulin Ratio (0.9-2) Triglycerides 120 (0-150) mg/dl Cholesterol 155 (0-200) mg/dl LDL Cholesterol, Calc 93 mg/dl VLDL Cholesterol, Calc 24 (0-30) mg/dl HDL Cholesterol 38 mg/dl Cholesterol/HDL Ratio 4.1 (0-5) TSH Cancelled SARS-CoV-2, RNA, NAAT (NEGATIVE) Blood Parasites ID 10/26/21 10/25/21 10/25/21 Range/Units 02:39 20:23 20:22 WBC Cancelled (4.8-10.8) K/ul RBC Cancelled (3.93-5.22) M/uL Hgb Cancelled (12.0-16.0) g/dl Hct Cancelled (34.1-44.9) % MCV Cancelled (80.0-100.0) fL MCH Cancelled (25.0-34.0) pg MCHC Cancelled (32.0-36.0) g/dL RDW Std Deviation Cancelled (36.4-46.3) fL RDW Coeff of Edwardo Cancelled (11.5-14.5) % Plt Count Cancelled (130-400) K/uL MPV Cancelled (9.4-12.3) fL Immature Gran % (Auto) Cancelled % Neut % (Auto) Cancelled % Lymph % (Auto) Cancelled % [place] % (Auto) Cancelled % Eos % (Auto) Cancelled % Baso % (Auto) Cancelled % Neut # (Auto) Cancelled (1.4-6.5) K/uL Lymph # (Auto) Cancelled (1.2-3.4) K/uL [place] # (Auto) Cancelled (0.24-0.82) K/uL Eos # (Auto) Cancelled (0-0.50) K/uL Baso # (Auto) Cancelled (0-0.2) K/uL Immature Gran # (Auto) Cancelled (0.00-0.02) K/uL Absolute Nucleated RBC Cancelled Nucleated RBC % (auto) Cancelled Neutrophils % (Manual) Cancelled Band Neutrophils % Cancelled Lymphocytes % (Manual) Cancelled Prolymphocyte % Cancelled Reactive Lymphs % (Man) Cancelled Monocytes % (Manual) Cancelled Eosinophils % (Manual) Cancelled Basophils % (Manual) Cancelled Metamyelocytes % (Man) Cancelled Myelocytes % (Man) Cancelled Promyelocytes % (Man) Cancelled Blast Cells % (Manual) Cancelled Plasma Cell % (Manual) Cancelled Other Cells % Cancelled Nucleated RBC % Cancelled Neutrophils # (Manual) Cancelled Band Neutrophils # Cancelled Total Absolute Neuts Cancelled Lymphocytes # (Manual) Cancelled Prolymphocyte # Cancelled Reactive Lymphs # Cancelled Total Abs Lymphocytes Cancelled Monocytes # (Manual) Cancelled Eosinophils # (Manual) Cancelled Basophils # (Manual) Cancelled Metamyelocytes # (Man) Cancelled Myelocytes # (Manual) Cancelled Promyelocytes # (Man) Cancelled Blast Cells # (Man) Cancelled Plasma Cell # (Manual) Cancelled Other Cells # Cancelled Nucleated RBCs # (Man) Cancelled Hypersegmented Neuts Cancelled Hyposegmented Neuts Cancelled Hypogranular Neuts Cancelled Large Granular Lymphs Cancelled # Lrg Granular Lymphs Cancelled Hairy Cells Cancelled Smudge Cells Cancelled Toxic Granulation Cancelled Toxic Vacuolation Cancelled Dohle Bodies Cancelled Carlos Alberto Rods Cancelled Platelet Estimate Cancelled Hypogranular Platelets Cancelled Clumped Platelets Cancelled Giant Platelets Cancelled Platelet Satelliting Cancelled RBC Morphology Cancelled Polychromasia Cancelled Hypochromasia Cancelled Poikilocytosis Cancelled Basophilic Stippling Cancelled Anisocytosis Cancelled Microcytosis Cancelled Macrocytosis Cancelled Spherocytes Cancelled Pappenheimer Bodies Cancelled Sickle Cells Cancelled Target Cells Cancelled Tear Drop Cells Cancelled Ovalocytes Cancelled Stomatocytes Cancelled Dey-Swartz Bodies Cancelled Echinocytes Cancelled Acanthocytes (Spur) Cancelled Rouleaux Cancelled RBC Agglutinates Cancelled Schistocytes Cancelled Sezary Cell Cancelled PT (9.0-12.0) Seconds INR (0.9-1.1) APTT (21.0-31.0) Seconds PTT Ratio Sodium (136-145) mmol/L Potassium (3.5-5.1) mmol/L Chloride (98-107) mmol/L Carbon Dioxide (21-32) mmol/L Anion Gap (3-11) BUN (6-23) mg/dl Creatinine (0.6-1.2) mg/dl Est Cr Clr Drug Dosing ml/min Est GFR ( Amer) ml/min Est GFR (Non-Af Amer) ml/min BUN/Creatinine Ratio (10-20) Glucose (70-99(Fasting)) mg/dl POC Glucose (70-99) mg/dl Estimat Average Glucose Hemoglobin A1c Calcium (8.5-10.1) mg/dl Magnesium (1.7-2.4) mg/dl Iron (35-150) mcg/dl TIBC (250-450) mcg/dl Unsaturated IBC (155-355) mcg/dl Transferrin % Sat (15-50) % Ferritin (8-388) ng/ml Total Bilirubin (0.2-1.0) mg/dl AST (13-39) U/L ALT (7-52) U/L Alkaline Phosphatase (34-104) U/L Troponin I High Sens (0-14) pg/ml B-Natriuretic Peptide 1179 H (0-100) pg/ml Total Protein (6.0-8.3) gm/dl Albumin (3.4-5.0) gm/dl Globulin (2.5-4.0) gm/dl Albumin/Globulin Ratio (0.9-2) Triglycerides (0-150) mg/dl Cholesterol (0-200) mg/dl LDL Cholesterol, Calc mg/dl VLDL Cholesterol, Calc (0-30) mg/dl HDL Cholesterol mg/dl Cholesterol/HDL Ratio (0-5) TSH SARS-CoV-2, RNA, NAAT NEGATIVE (NEGATIVE) Blood Parasites ID Cancelled 10/25/21 10/25/21 10/25/21 Range/Units 19:53 19:53 19:53 WBC 4.63 L (4.8-10.8) K/ul RBC 3.75 L (3.93-5.22) M/uL Hgb 10.0 L (12.0-16.0) g/dl Hct 32.9 L (34.1-44.9) % MCV 87.7 (80.0-100.0) fL MCH 26.7 (25.0-34.0) pg MCHC 30.4 L (32.0-36.0) g/dL RDW Std Deviation 69.6 H (36.4-46.3) fL RDW Coeff of Edwardo 21.5 H (11.5-14.5) % Plt Count 195 (130-400) K/uL MPV 12.1 (9.4-12.3) fL Immature Gran % (Auto) 0.2 % Neut % (Auto) 51.5 % Lymph % (Auto) 40.8 % [place] % (Auto) 6.5 % Eos % (Auto) 0.6 % Baso % (Auto) 0.4 % Neut # (Auto) 2.38 (1.4-6.5) K/uL Lymph # (Auto) 1.89 (1.2-3.4) K/uL [place] # (Auto) 0.30 (0.24-0.82) K/uL Eos # (Auto) 0.03 (0-0.50) K/uL Baso # (Auto) 0.02 (0-0.2) K/uL Immature Gran # (Auto) 0.01 (0.00-0.02) K/uL Absolute Nucleated RBC Nucleated RBC % (auto) Neutrophils % (Manual) Band Neutrophils % Lymphocytes % (Manual) Prolymphocyte % Reactive Lymphs % (Man) Monocytes % (Manual) Eosinophils % (Manual) Basophils % (Manual) Metamyelocytes % (Man) Myelocytes % (Man) Promyelocytes % (Man) Blast Cells % (Manual) Plasma Cell % (Manual) Other Cells % Nucleated RBC % Neutrophils # (Manual) Band Neutrophils # Total Absolute Neuts Lymphocytes # (Manual) Prolymphocyte # Reactive Lymphs # Total Abs Lymphocytes Monocytes # (Manual) Eosinophils # (Manual) Basophils # (Manual) Metamyelocytes # (Man) Myelocytes # (Manual) Promyelocytes # (Man) Blast Cells # (Man) Plasma Cell # (Manual) Other Cells # Nucleated RBCs # (Man) Hypersegmented Neuts Hyposegmented Neuts Hypogranular Neuts Large Granular Lymphs # Lrg Granular Lymphs Hairy Cells Smudge Cells Toxic Granulation Toxic Vacuolation Dohle Bodies Carlos Alberto Rods Platelet Estimate Hypogranular Platelets Clumped Platelets Giant Platelets 1+ Platelet Satelliting RBC Morphology Polychromasia 1+ Hypochromasia Poikilocytosis Basophilic Stippling Anisocytosis Present Microcytosis Macrocytosis Spherocytes Pappenheimer Bodies Sickle Cells Target Cells Tear Drop Cells Ovalocytes 1+ Stomatocytes Dey-Swartz Bodies Echinocytes Acanthocytes (Spur) Rouleaux RBC Agglutinates Schistocytes Sezary Cell PT 11.7 (9.0-12.0) Seconds INR 1.1 (0.9-1.1) APTT 24.7 (21.0-31.0) Seconds PTT Ratio 0.9 Sodium 138 (136-145) mmol/L Potassium 3.2 L (3.5-5.1) mmol/L Chloride 102 (98-107) mmol/L Carbon Dioxide 26 (21-32) mmol/L Anion Gap 10 (3-11) BUN 18 (6-23) mg/dl Creatinine 0.97 (0.6-1.2) mg/dl Est Cr Clr Drug Dosing 33.2 ml/min Est GFR ( Amer) 63.9 ml/min Est GFR (Non-Af Amer) 55.2 ml/min BUN/Creatinine Ratio 18.6 (10-20) Glucose 132 H (70-99(Fasting)) mg/dl POC Glucose (70-99) mg/dl Estimat Average Glucose Hemoglobin A1c Calcium 9.4 (8.5-10.1) mg/dl Magnesium 1.8 (1.7-2.4) mg/dl Iron (35-150) mcg/dl TIBC (250-450) mcg/dl Unsaturated IBC (155-355) mcg/dl Transferrin % Sat (15-50) % Ferritin (8-388) ng/ml Total Bilirubin 1.1 H (0.2-1.0) mg/dl AST 20 (13-39) U/L ALT 7 (7-52) U/L Alkaline Phosphatase 90 (34-104) U/L Troponin I High Sens 18.7 H (0-14) pg/ml B-Natriuretic Peptide (0-100) pg/ml Total Protein 8.3 (6.0-8.3) gm/dl Albumin 3.5 (3.4-5.0) gm/dl Globulin 4.8 H (2.5-4.0) gm/dl Albumin/Globulin Ratio 0.7 L (0.9-2) Triglycerides (0-150) mg/dl Cholesterol (0-200) mg/dl LDL Cholesterol, Calc mg/dl VLDL Cholesterol, Calc (0-30) mg/dl HDL Cholesterol mg/dl Cholesterol/HDL Ratio (0-5) TSH SARS-CoV-2, RNA, NAAT (NEGATIVE) Blood Parasites ID Resident Activity Tracking Resident Involvement: Resident Care Provided Care Provided: Adult Hospital Medicine
[2021-10-26] MEDS ORDERED: PNEUMOCOCCAL Polysaccharide Vaccine 25mcg/0.5mL vial/Syr IM ONE (08:00)
--- NOTE | 2021-10-26 08:24 | XRay Report ---
XR chest 1V portable HISTORY: 81 years-old Female Dyspnea acute shortness of breath COMPARISON: None TECHNIQUE: AP view of the chest FINDINGS: The cardiac silhouette is enlarged. Left subclavian pacer. Atherosclerosis of the thoracic aorta. No pneumothorax or overt pulmonary edema. Trace pleural effusions with mild left basilar densities. Dege nerative changes of the shoulders and spine. IMPRESSION: 1. Cardiomegaly without overt pulmonary edema. 2. Trace pleural effusions with mild left basilar opacities, likely atelectatic. ACT 112: Negative or not required by law. The above report was generated using voice recognition software. It may contain grammatical, syntax o r spelling errors. Electronically signed by: Allen Mcclellan M.D. 10/26/2021 8:23 AM
[2021-10-26] MEDS ORDERED: hydroCHLOROthiazide 25 MG TAB PO SCH (09:00)
[2021-10-26] MEDS ORDERED: APIXABAN 5 MG TABLET PO SCH (09:00)
[2021-10-26] MEDS: INSULIN ASPART PER UNIT SC SCH ×4 (09:08→22:01)
[2021-10-26] MEDS: ATORVASTATIN 20 MG TAB PO SCH (09:10)
[2021-10-26] MEDS: ENALAPRIL MALEATE 10 MG TAB PO SCH (09:10)
[2021-10-26] MEDS: FUROSEMIDE 40 MG/4 ML VIAL IV SCH (09:11)
[2021-10-26] MEDS: APIXABAN 2.5 MG TAB PO SCH ×2 (09:26→22:03)
[2021-10-26] MEDS: ACETAMINOPHEN 325 MG TAB PO PRN ×2 (09:28→22:06)
[2021-10-26 09:41] LABS: Ferritin 59.2 ng/ml (8-388)
--- NOTE | 2021-10-26 16:19 | XCELERA ---
[id number]
--- NOTE | 2021-10-26 22:54 | Electrocardiogram Report ---
Test Reason : Blood Pressure : / mmHG Vent. Rate : 080 BPM Atrial Rate : 220 BPM P-R Int : 000 ms QRS Dur : 170 ms QT Int : 466 ms P-R-T Axes : 000 -71 100 degrees QTc Int : 537 ms Ventricular-paced rhythm Abnormal ECG No previous ECGs available Confirmed by Alejo Alcantar ([id number]) on 10/26/2021 10:54:08 PM Referred By: REFERRED SELF Confirmed By:Alejo Alcantar
[2021-10-27] MEDS: ACETAMINOPHEN 325 MG TAB PO PRN ×2 (06:10→17:58)
[2021-10-27 06:58] LABS: Estimated Average Glucose 111 mg/dl; Hemoglobin A1C 5.5 % (4.5-5.6)
[2021-10-27] MEDS: INSULIN ASPART PER UNIT SC SCH ×4 (09:04→21:36)
[2021-10-27] MEDS: FUROSEMIDE 40 MG/4 ML VIAL IV SCH (09:06)
[2021-10-27] MEDS: ENALAPRIL MALEATE 10 MG TAB PO SCH (09:06)
[2021-10-27] MEDS: MAGNESIUM OXIDE 400 MG TAB PO SCH (09:06)
[2021-10-27] MEDS: APIXABAN 2.5 MG TAB PO SCH ×2 (09:06→21:39)
[2021-10-27] MEDS: ATORVASTATIN 20 MG TAB PO SCH (09:06)
--- NOTE | 2021-10-27 09:38 | Hospitalist Progress Note ---
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 Acute decompensated systolic heart failure -CXR: cardiomegaly, trace pleural effusions with mild left basilar opacities likely atelectasis -Echocardiogram- EF 40-45%, multiple wall segments with hypokinesis and apical akinesis, mild pHTN, moderate tricuspid/mitral regurgitation, moderate aortic stenosis -Diuresis regimen -930 cc UOP over past day -Weight 45.5 to 49 kg. Given pt's clinical volume status is improved, I suspect weight measurement may be inaccurate -Continue Lasix 40 mg IV daily. Consider transition to PO Lasix tomorrow if UOP adequate -Continue Enalapril-HCTZ -Cr 1.18 today -Daily weights, strict I's/O's -Trend BMP -Defer cardiology consult during admission, pt will need cardiology f/u to establish care as outpatient Anemia -hgb 10 on admission, baseline unknown; 11.2 today -normal MCV -ddx iron deficiency, anemia of chronic disease -iron and ferritin are low to normal; consider iron supplementation -trend cbc History of atrial fibrillation -EKG: ventricularly paced, sinus rhythm -not on rate control -Continue Eliquis 2.5 mg BID Diabetes, type 2 Patient on Metformin -Hold Metformin -HgbA1C 5.5 -ISS, goal blood sugar 100 - 140 Hyperlipidemia Chronic -Lipid panel wnl -Cont. Atorvastatin 20 mg, consider increase to 40 mg for high-intensity therapy Hypertension Blood pressure stable -Cont. Enalapril-HCTZ DVT ppx: Eliquis 2.5mg bid FEN/GI: DM2, HH, low Na Code Status: Full Dispo: med tele (2) Diabetes: (3) Hyperlipidemia: (4) Hypertension: (5) Anemia: Admission and Anticipated Discharge Date Admission Date: October 25, 2021 Supervising Physician Co-Signing Physician Notes I saw the patient with the resident team and confirmed paulino potions of the history and exam. I agree with the impression and plan as noted above. VS and nursing notes reviewed. Non-toxic appearing. Heart with regular rate and rhythm. 3/6 systolic murmur. +1 pitting edema to the right LE. Right BKA. Dressing to the amputation stump is clean, dry, and in tact. Lungs essentially clear Sodium 136 Potassium 3.6 Acute decompensated HFrEF Continue diuresis, nearing euvolemia Trend electrolytes and replete potassium else per resdient note Subjective No acute events overnight. 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 Pt reports feeling well. She states her RLE swelling has further improved and denies any dyspnea. Does not feel as congested. Denying any chest pain, nausea/vomiting. Review of Systems Review of Systems: Per Subjective Physical Exam Physical Exam: General: resting comfortably, NAD, non-toxic in appearance HEENT: NC/AT, PERRL, EOMI, anicteric sclera, conjunctiva without injection, external ear normal to inspection and nontender, nares patent, moist mucus membranes, dentition intact, no oropharyngeal lesions, neck supple, trachea midline, no LAD, no thyromegaly, no JVD Heart: +S1/S2, regular, 2/6 [place] at right 2nd ICS across precordium Lungs: faint bibasilar crackles, no increased work of breathing Abd: +BS, soft, NT/ND, no masses/organomegaly/ascites Ext: warm, 2+ pulses in UE b/l, no clubbing/cyanosis, s/p left BKA, trace pitting edema of RLE Neuro: no focal motor or sensory deficits Skin: warm, dry, post-operative (BKA) eschar of LLE with no erythema, drainage, bleeding or dehiscence Results & Data Results & Data ([facility]) Vital Signs (Past 12 Hours) Vital Signs Temp Pulse Pulse Resp BP Pulse Ox O2 Del Method 10/27/21 07:34 36.3 C L 78 16 119/71 97 Room Air 10/27/21 07:36 80 10/27/21 03:32 Room Air 10/27/21 00:24 80 10/27/21 03:10 80 18 119/73 90 Room Air 10/26/21 22:58 36.3 C L 79 18 117/68 96 Room Air Resident Activity Tracking Resident Involvement: Resident Care Provided Care Provided: Adult Hospital Medicine
[2021-10-27 11:08] LABS: Hematocrit (blood only) 36.3 % (34.1-44.9); Hemoglobin 11.2 g/dl (12.0-16.0); Mean Corpuscular Hemoglobin 26.7 pg (25.0-34.0); Mean Corpuscular Hgb Conc 30.9 g/dL (32.0-36.0); Mean Corpuscular Volume 86.6 fL (80.0-100.0); RDW Coefficient of Variation 21.4 % (11.5-14.5); RDW Standard Deviation 67.5 fL (36.4-46.3); Red Blood Count 4.19 M/uL (3.93-5.22); White Blood Count 4.89 K/ul (4.8-10.8)
[2021-10-27 11:24] LABS: Mean Platelet Volume 12.2 fL (9.4-12.3); Platelet Count 232 K/uL (130-400)
[2021-10-27 11:32] LABS: Anisocytosis Present; Basophils # (auto) 0.02 K/uL (0-0.2); Basophils % (auto) 0.4 %; Eosinophils # (auto) 0.03 K/uL (0-0.50); Eosinophils % (auto) 0.6 %; Immature Granulocytes # (auto) 0.01 K/uL (0.00-0.02); Immature Granulocytes % (auto) 0.2 %; Lymphocytes # (auto) 1.58 K/uL (1.2-3.4); Lymphocytes % (auto) 32.3 %; Monocytes # (auto) 0.23 K/uL (0.24-0.82); Monocytes % (auto) 4.7 %; Neutrophils # (auto) 3.02 K/uL (1.4-6.5); Neutrophils % (auto) 61.8 %
[2021-10-27 11:41] LABS: BUN Creatinine Ratio 16.9 (10-20); Creatinine Clr Calc Pharmacy 28.7 ml/min; Est GFR (African American) 50.4 ml/min; Est GFR (Non-African American) 43.5 ml/min; Potassium 3.3 mmol/L (3.5-5.1)
[2021-10-27] MEDS ORDERED: POTASSIUM CHLORIDE CRTAB 20 MEQ TABCR PO STA ×2 (18:33→20:59)
[2021-10-27] MEDS ORDERED: traMADol HCL 50 MG TABLET PO STA (19:34)
[2021-10-27] MEDS: POTASSIUM CHLORIDE / WTR 10 MEQ/100 ML PLCT IV SCH ×2 (20:01→21:17)
[2021-10-28 08:08] LABS: Basophils # (auto) 0.02 K/uL (0-0.2); Basophils % (auto) 0.5 %; Eosinophils # (auto) 0.06 K/uL (0-0.50); Eosinophils % (auto) 1.5 %; Hematocrit (blood only) 36.7 % (34.1-44.9); Immature Granulocytes # (auto) 0.01 K/uL (0.00-0.02); Immature Granulocytes % (auto) 0.3 %; Lymphocytes % (auto) 38.2 %; Mean Corpuscular Hemoglobin 26.6 pg (25.0-34.0); Mean Corpuscular Volume 88.6 fL (80.0-100.0); Mean Platelet Volume 11.8 fL (9.4-12.3); Monocytes # (auto) 0.31 K/uL (0.24-0.82); Monocytes % (auto) 7.9 %; Neutrophils # (auto) 2.03 K/uL (1.4-6.5); Neutrophils % (auto) 51.6 %; Platelet Count 202 K/uL (130-400); RDW Coefficient of Variation 21.2 % (11.5-14.5); RDW Standard Deviation 68.6 fL (36.4-46.3); Red Blood Count 4.14 M/uL (3.93-5.22); White Blood Count 3.93 K/ul (4.8-10.8)
[2021-10-28 08:31] LABS: Ovalocytes 1+
[2021-10-28 08:56] LABS: BUN Creatinine Ratio 18.5 (10-20); Calcium 9.4 mg/dl (8.5-10.1); Creatinine Clr Calc Pharmacy 28.5 ml/min; Est GFR (African American) 49.9 ml/min; Est GFR (Non-African American) 43.1 ml/min; Magnesium 1.9 mg/dl (1.7-2.4)
[2021-10-28] MEDS: ATORVASTATIN 20 MG TAB PO SCH (09:22)
[2021-10-28] MEDS: APIXABAN 2.5 MG TAB PO SCH (09:22)
[2021-10-28] MEDS: FUROSEMIDE 40 MG/4 ML VIAL IV SCH ×2 (09:23→12:14)
[2021-10-28] MEDS: ENALAPRIL MALEATE 10 MG TAB PO SCH (09:23)
[2021-10-28] MEDS: INSULIN ASPART PER UNIT SC SCH ×2 (09:28→12:14)
--- NOTE | 2021-10-28 11:22 | Discharge Summary ---
Date of Service October 28, 2021 Admission HPI Per Admitting Provider Darleen Davey is an 81yo female presenting with complaint of SOB that started today. Patient is of [place] descent. She was previously residing in [place], [place] but has recently moved to [place] to live with her daughter. Daughter is present during interview. Patient prefers communication in Bengali. Patient reports SOB that started earlier today around 16:00 as well as worsening orthopnea and edema as well as dull central chest pressure. She denies fever, chills, cough, abdominal pain, nausea, vomiting, diarrhea. Patient had right BKA performed 1 month ago in [place] for what sounds to be gangrene. She has been healing well. Family has been assisting her with dressing changes. She does have some pain at the stump after accidentally bumping it twice during transfers but overall is not in pain at the surgical site. No bleeding, drainage or dehiscence. ER: Lasix 40mg IV, KCL Admission Exam Per Admitting Provider General: patient resting comfortably, NAD, non-toxic in appearance, AA&O x 4 Skin: warm, dry, post-operative eschar with no erythema, drainage, bleeding or dehiscence HEENT: NC/AT, PERRL, EOMI, anicteric sclera, conjunctiva without injection, external ear normal to inspection and nontender, nares patent, moist mucus membranes, dentition intact, no oropharyngeal lesions, neck supple, trachea midline, no LAD, no thyromegaly, no JVD Heart: +S1/S2, regular, 2/6 [place] at right 2nd ICS across precordium Lungs: equal air entry bilaterally, +rales bilaterally Abd: +BS, soft, NT/ND, no masses/organomegaly/ascites Ext: warm, 2+ pulses in UE/LE bilaterally, no clubbing/cyanosis, s/p left BKA, trace pitting edema of LLE Neuro: nonfocal, patient AA&O x 4, speech intact, no facial droop, moving all extremities on command with equal strength 5/5 Principal Diagnosis CHF exacerbation Discharge Exam General: resting comfortably, NAD, non-toxic in appearance HEENT: NC/AT, PERRL, EOMI, anicteric sclera, conjunctiva without injection, external ear normal to inspection and nontender, nares patent, moist mucus membranes, dentition intact, no oropharyngeal lesions, neck supple, trachea midline, no LAD, no thyromegaly, no JVD Heart: +S1/S2, regular, 2/6 [place] at right 2nd ICS across precordium Lungs: faint bibasilar crackles improved from day prior, no increased work of breathing Abd: +BS, soft, NT/ND, no masses/organomegaly/ascites Ext: warm, 2+ pulses in UE b/l, no clubbing/cyanosis, s/p left BKA, trace pitting edema of RLE improved from day prior Neuro: no focal motor or sensory deficits Skin: warm, dry, post-operative (BKA) eschar of LLE with no erythema, drainage, bleeding or dehiscence Discharge Data Allergies Allergy/AdvReac Type Severity Reaction Status Date / Time No Known Allergies Allergy Unverified 10/25/21 21:59 Consultations 10/25/21 22:05 ED Decision to Admit Stat Hospital Course (1) CHF (congestive heart failure): 81 yo F who recently moved to [place] (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 Acute decompensated systolic heart failure -CXR: cardiomegaly, trace pleural effusions with mild left basilar opacities likely atelectasis -Echocardiogram- EF 40-45%, multiple wall segments with hypokinesis and apical akinesis, mild pHTN, moderate tricuspid/mitral regurgitation, moderate aortic stenosis -Diuresis regimen -Weight 49 to 47.8 kg on day of discharge -Lasix 40 mg IV daily in hospital, to resume home Lasix 40 mg PO daily on discharge -Continued Enalapril-HCTZ -Cr 1.19 on discharge -Largely euvolemic at time of discharge -Deferred cardiology consult during admission, pt will need cardiology f/u to establish care as outpatient Anemia -hgb 10 on admission, baseline unknown; 11.0 on day of discharge -normal MCV -ddx iron deficiency, anemia of chronic disease -iron and ferritin are low to normal; consider iron supplementation, did not start during hospitalization History of atrial fibrillation -EKG: ventricularly paced, sinus rhythm -not on rate control -Continued Eliquis 2.5 mg BID Diabetes, type 2 Patient on Metformin -HgbA1C 5.5 Hyperlipidemia Chronic -Lipid panel wnl -Continued atorvastatin 20 mg Hypertension Blood pressure stable -Continued Enalapril-HCTZ (2) Diabetes: (3) Hyperlipidemia: (4) Hypertension: (5) Anemia: Total Time Total Time Spent Total Time Spent (In Minutes): <30 Discharge Plan Discharge Items Patient Disposition: Home - Self-Care Reason For Visit: SOB, EDEMA Discharge Diagnosis: exacerbacin de la insuficiencia cardaca Activity: Resume your previous activity Non-emergency contact: Primary Care Provider and Board Handler Call non-emergency contact if: you have any medication questions and your symptoms worsen Follow-up/Referrals: PCP,NO [Primary Care Provider] - Diet: Carb Consistent or DM2, Heart Healthy and Low Sodium (2gm) Fluids: 1200ml (5 cups) Addtl Attending Provider Instructions: Congestive Heart Failure: Discharge Instructions Congestive heart failure essentially means your heart may have a "traffic jam" of fluid backing up into your lungs. Fluid in your lungs blocks your breathing space and makes you feel short of breath. In the hospital, our job is to get you off the fluid so you can breathe easier, and then get you back on track with medications and lifestyle adjustments to prevent the gridlock from happening again. salt (sodium) The vast majority of people admitted to hospital with fluid backing up into their lungs get there because of too much salt in their diet. The way our kidneys work: When you take a small amount of sodium, your kidneys retain a small amount of water. When you take in a large amount of sodium, your kidneys retain a large amount of water. When this happens, your blood vessels flood, your heart overfills, and fluid backs up into your lungs. Most people know to avoid the salt shaker, but sodium is found in just about anything prepackaged/prepared, as a preservative or flavoring agent. Most of the people we care for here with congestive heart failure caused by too much sodium don't use a salt shaker at all. Get in the habit of looking at food labels, so you can see how much sodium is in the foods you eat. The most important number to keep in mind is how much sodium is in each serving. But also watch the size of a portion. real trends often make a portion so small that there doesn't seem to be much sodium per serving, but the average person can eat 3 or 4 servings of the food and get much more sodium than they realize. Keep a "budget" of how much sodium you eat each day. Most people don't get in trouble or stay in the hospital as long as they stay "under budget." Most patients with congestive heart failure do well if they take less than 2,000 mg of sodium per day. Because our kidneys retain water based on how much sodium they see at any given time, it's also important to stay under 500 mg at any given meal. This is because, even if you were to stick to less than 2,000 mg of sodium, but eat it all at once, your kidneys would retain fluid at a rate as if you were consuming much more sodium than you actually do. Occasionally, your doctor may specifically recommend an even higher restriction (such as less than 1,500 mg per day), so if you've been told to be even stricter with sodium, follow that advice. -Tracking how you are doing (Wet versus dry) Because managing congestive heart failure is an ongoing process, it's very important to learn how to keep track of your signs and symptoms and keep track of how you're doing at home. This will allow you to catch problems before they become a big problem. In general, as your health care team, we view the management of chronic congestive heart failure as a balance between being "wet" (full of fluid) versus being "dry" (dehydrated from treatment). "Wet": signs of fluid retention that warrant further evaluation: Check your weight daily. If your weight gains more than 2 pounds in 1 day, it's almost certainly fluid related. This should warrant further thought and/or a call to your doctor. Follow your breath: Most of the time, when fluid returns to your lungs at first, you will begin to notice shortness of breath when walking or lying down. If you notice any of these, this should warrant further reflection and/or a call to your doctor. If you notice both weight gain and worsening breathing, you definitely deserve to be seen as soon as possible. "Dry": While the goal of managing the disease is to keep you from getting "wet," medications can sometimes cause a degree of dehydration. Most people with congestive heart failure need frequent lab tests (basic metabolic panel). In general, when there has been a change in the diuretic dose (a change in the water pill) or any other major change, laboratory tests should be followed closely and then more frequently. This is because lab tests will often show early signs of dehydration before you start to feel sick. Common symptoms of being dehydrated include: feeling weak and dizzy, having lower blood pressure, urinating less than usual, or having a very dry mouth. If you notice any of these signs/symptoms, and you should not have a lab test done, it would be quite reasonable to ll Common symptoms of being dehydrated include: feeling weak and dizzy, having lower blood pressure, urinating less than usual, or having a very dry mouth. If you notice any of these signs/symptoms, and lab work is not in order, it would be quite reasonable to call your doctor to see if lab work or a visit can be scheduled. Checklist for managing heart failure: Limit salt (sodium) intake to 2,000 mg (2 g) per day and 500 mg (0.5 g) per meal Check weight daily (wearing the same clothes, no shoes) every morning Use the table provided to enter your weight and salt intake for the day Are you too wet? If you gained 2 lbs or more, be sure to take your water pill If your breathing is not good (you are short of breath more than usual) call your doctor regardless of weight change. If you gained 2 pounds or more and are short of breath, you should visit your primary care physician or the emergency department. Pending Studies at Discharge: No Stand-Alone Forms: My [facility] [employer], Smoking Cessation Medications and DC Order Prescriptions: New furosemide [Lasix] 40 mg tablet 40 mg PO DAILY Qty: 30 1RF Continued metformin 500 mg Tablet 500 mg PO BID atorvastatin 20 mg Tablet 20 mg PO DAILY enalapril-hydrochlorothiazide 10-25 mg Tablet 1 tab PO DAILY Eliquis 5 mg Tablet 5 mg PO DAILY Discharge Orders: Discharge Order (Routine); Ordered 10/28/21 Ordered By: Theron Guillen Admission Data Admit Date/Time: 10/25/21 22:36 Attending Provider: Velasquez Siddiqui Admit Provider: Kallie Burton Primary Care Provider: PCP,NO Other Providers: Kallie Burton Other Interventions: Discharge Summary Assessment (RN) Last Done: 08/02/22 13:29 Supervising Physician Co-Signing Physician Notes I personally examined the patient and verified all paulino points of history and exam, discussed case, and agree with decision making with Dr Guillen as per dr silva. feels up to go home. vitals noted nad heent nc at mmm breathing unlabored no accessory muscles good effort HFrEF - feels up to going home. family OK w this. med management, Na restriction. close outpt f/u - establishing w PCP and CHF/cardiology here otherwise as above Resident Activity Tracking Resident Involvement: Resident Care Provided Care Provided: Adult Hospital Medicine
[2021-10-28] MEDS ORDERED: FUROSEMIDE 40 MG TAB PO ONE (12:30)
--- NOTE | 2021-10-28 18:50 | Billing Data ---
Date of Service October 28, 2021 Coding Level of Care Code D/C DAY MANAGEMENT <30 MINS
--- NOTE | 2021-10-28 18:52 | Billing Data ---
Date of Service October 28, 2021 Coding Level of Care Code D/C DAY MANAGEMENT <30 MINS
== END 2021-10-28 16:20 | disposition home or self-care (01) | DRG 291 ==
LOC: ED 18:44 → 2W 22:36 → SUATTDRO 22:36 → 2W 23:18

== ENCOUNTER 2021-10-31 20:18 | Inpatient (IN) ==
[2021-10-31 21:04] LABS: Hematocrit (blood only) 35.4 % (34.1-44.9); Mean Corpuscular Hemoglobin 26.8 pg (25.0-34.0); Mean Corpuscular Hgb Conc 31.1 g/dL (32.0-36.0); Mean Corpuscular Volume 86.3 fL (80.0-100.0); RDW Coefficient of Variation 20.3 % (11.5-14.5); RDW Standard Deviation 63.8 fL (36.4-46.3); White Blood Count 3.87 K/ul (4.8-10.8)
[2021-10-31 21:08] LABS: Mean Platelet Volume 11.5 fL (9.4-12.3); Platelet Count 227 K/uL (130-400)
[2021-10-31 21:25] LABS: Alanine Aminotransferase 7 U/L (7-52); Albumin Globulin Ratio 0.7 (0.9-2); Albumin Level 3.6 gm/dl (3.4-5.0); Alkaline Phosphatase 96 U/L (34-104); Anion Gap 11 (3-11); Aspartate Aminotransferase 21 U/L (13-39); BUN Creatinine Ratio 17.4 (10-20); Bilirubin,Total 0.8 mg/dl (0.2-1.0); Blood Urea Nitrogen 23 mg/dl (6-23); Carbon Dioxide 25 mmol/L (21-32); Chloride 93 mmol/L (98-107); Est GFR (African American) 44.1 ml/min; Glucose 119 mg/dl (70-99(Fasting)); Potassium 3.6 mmol/L (3.5-5.1); Sodium 129 mmol/L (136-145); Total Protein 8.6 gm/dl (6.0-8.3)
[2021-10-31 21:46] LABS: Anisocytosis Present; Basophils # (auto) 0.02 K/uL (0-0.2); Basophils % (auto) 0.5 %; Immature Granulocytes # (auto) 0.01 K/uL (0.00-0.02); Immature Granulocytes % (auto) 0.3 %; Lymphocytes # (auto) 1.33 K/uL (1.2-3.4); Lymphocytes % (auto) 34.4 %; Monocytes # (auto) 0.31 K/uL (0.24-0.82); Neutrophils % (auto) 56.8 %; Toxic Vacuolation 1+
[2021-10-31] MEDS ORDERED: ACETAMINOPHEN 1,000 MG/100 ML VIAL IV STA ×2 (21:46→22:39)
[2021-10-31] MEDS ORDERED: FAMOTIDINE 20MG IV PUSH 20 MG/5 ML SYR IV STA (22:39)
[2021-10-31] MEDS ORDERED: ONDANSETRON INJ 2 MG/ML 2 ML VIAL IV STA (22:39)
[2021-10-31] MEDS ORDERED: SODIUM CHLORIDE 0.9% 500 ML IV ONE (22:39)
[2021-10-31 22:46] LABS: Influenza A virus by PCR Negative (Neg); Influenza B virus by PCR Negative (Neg); RSV by PCR Negative (Neg)
--- NOTE | 2021-10-31 23:08 | XRay Report ---
XR chest 1V portable HISTORY: 81 years-old Female covid, sob acute shortness of breath COMPARISON: 10/25/2021 TECHNIQUE: Portable AP view of the chest FINDINGS: Marked cardiomegaly. Left subclavian pacer. Atherosclerosis of the thoracic aorta. No pneumothorax, p leural effusion, airspace consolidation or overt pulmonary edema. Degenerative changes of the shoulde rs and spine. IMPRESSION: Cardiomegaly without acute process. ACT 112: Negative or not required by law. The above report was generated using voice recognition software. It may contain grammatical, syntax o r spelling errors. Electronically signed by: Allen Mcclellan M.D. 10/31/2021 11:06 PM
[2021-10-31 23:38] LABS: SARS CoV2 RNA(COVID-19) InHosp POSITIVE (Negative)
--- NOTE | 2021-11-01 00:37 | History & Physical Report ---
Date of Service November 01, 2021 Assessment & Plan (1) COVID-19: Plan: Darleen Davey is an 81-year-old female with PMH of DM2, CHF, HTN, HLD, 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 COVID-19 At this time fairly mild symptoms, saturating adequately on room air, no signs of viral pneumonia on CXR We will start dexamethasone 6 mg daily, as her symptoms began within the past 24 hours and would be likely to do poorly if her symptoms worsen Isolation precautions Ad[facility] to [facility] Hyponatremia Unclear etiology, but during recent hospitalization patient was not hyponatremic She does not have any neurologic symptoms at this time Hold enalaprilHCTZ as this could potentially be contributing ?SIADH in the setting of COVID-19 Urine sodium and urine osmolality pending Monitor sodium in a.m. [place] Creatinine elevated to 1.3, at time of discharge 4 days ago patient's creatinine was at 1.1 With her history of CHF we will hold on IV fluid hydration Hold furosemide, enalaprilHCTZ DM2 Hold home metformin SSI while admitted glycemic consult placed Atrial fibrillation Continue home Eliquis Hyperlipidemia Continue home atorvastatin DVT prophylaxis: Anticoagulated on Eliquis Diet: Heart healthy, DM 2 Dispo: Admit to [facility] consult PT/OT to evaluate for home needs CODE STATUS: Full (2) Anemia: (3) Diabetes: (4) CHF (congestive heart failure): (5) Hyperlipidemia: (6) Hypertension: History of Present Illness Primary Care Provider: NO PCP Darleen Davey is an 81-year-old female with PMH of DM2, CHF, HTN, HLD, 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 Patient is Portuguese-speaking only and was interviewed by myself without the need for translation services. She states she tested positive for COVID earlier today at home. She has a grandson who was helping her after her recent hospitalization who tested positive as well. Her symptoms have mainly been HAN, dizziness, fatigue, body aches, coughing, congestion. She denies any SOB, CP, palp, n/v, abd pain, diarrhea, urinary symptoms. Of note patient was recently admitted for SOB, which was thought to be related to CHF exacerbation. As above, denying SOB at this time. She tested negative for COVID19 on her prior admission. She was brought into the ED by family members but was unaccompanied at the time of my interview. In the ED patient had positive COVID19 PCR. CXR showed cardiomegaly without acute process. Lab work was significant for mild leukopenia of 3.87, hemoglobin 11, sodium found to be at 129 and creatinine elevated to 1.32. Patient received GI cocktail. Allergies Allergy/AdvReac Type Severity Reaction Status Date / Time No Known Allergies Allergy Unverified 10/25/21 21:59 Home Medications Medication Instructions Recorded Confirmed Type apixaban 5 mg tablet (Eliquis) 5 mg PO DAILY 10/25/21 10/25/21 History atorvastatin 20 mg tablet 20 mg PO DAILY 10/25/21 10/25/21 History enalapril 10 1 tab PO DAILY 10/25/21 10/25/21 History mg-hydrochlorothiazide 25 mg tablet metformin 500 mg tablet 500 mg PO BID 10/25/21 10/25/21 History furosemide 40 mg tablet (Lasix) 40 mg PO DAILY #30 tabs 10/28/21 Rx Past Med/Surg History Medical History CHF (congestive heart failure) Diabetes Hyperlipidemia Hypertension Surgical History History of left below knee amputation Pacemaker Family History Other No significant family history Social History Smoking Status: Former smoker Second Hand Exposure: No; Do You Dip or Chew Tobacco: No; Hx Alcohol Use: No Hx Substance Use: No Preferred Language: Portuguese 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 NAD. HEENT: PERRL, EOMI. Moist mucous membranes. NECK: No JVD. No lymphadenopathy. CHEST/LUNGS: CTAB A/P. No crackles, wheezes, rales, rhonchi. HEART: RRR. No m/g/r. No carotid bruits. ABDOMEN: NT/ND, soft. BS+ x4 EXTREMITIES: Left lower extremity status post BKA. No cyanosis, no clubbing, no edema SKIN: Warm and dry. No rashes or lesions. PSYCHIATRIC: Euthymic affect, no SI, no pressured speech, no hallucinations NEUROLOGIC: No FND. CN II-XII grossly intact. Results & Data Results & [facility] ([facility]) Vital Signs (Past 12 Hours) Vital Signs Temp Pulse Pulse Resp BP BP Pulse Ox 10/31/21 23:36 80 18 121/65 100 10/31/21 20:24 36.0 C L 80 18 109/58 L 97 O2 Del Method 10/31/21 23:36 Room Air 10/31/21 20:24 Room Air Supervising Physician Co-Signing Physician Notes Attending addendum: I have physically seen this patient, have supervised the medical residents activities, and agree with the H&P unless as otherwise noted. Assessment and Plan: Hyponatremia- Most likely secondary to HCTZ. Hold enalapril/HCTZ Retest laboratories in a.m. May be contributing to generalized fatigue symptoms Acute kidney injury- Creatinine 1.32, with baseline 1.19 Hold enalapril/HCTZ as noted above repeat laboratories in a.m. Did receive 500 cc normal saline from the ED COVID-19 infection- May be an element of adrenal insufficiency involved as well Dexamethasone 6 mg IV daily and monitor response Atrial fibrillation- Continue Eliquis Hyperlipidemia- Continue atorvastatin Diabetes mellitus- Hold metformin Placed on Accu-Cheks before meals and at bedtime with NovoLog coverage per scale Remaining orders and notations as noted Resident Activity Tracking Resident Involvement: Resident Care Provided Care Provided: Adult Hospital Medicine
--- NOTE | 2021-11-01 01:03 | Emergency Department Note ---
Impression & Plan COVID-19, Hyponatremia, Renal insufficiency ED Provider Note NAME: YVONNE HODGE AGE: 81 SEX: F ARRIVES VIA: Walk-In INFORMANT: Patient, family ED PROVIDER(S): Dandre Sandhu MD CHIEF COMPLAINT: Weakness, HAN, n/v. Positive Covid-19 home test PLAN: Disposition: Admit MEDICAL DECISION MAKING: The patient is a pleasant 81-year-old woman with a past medical history of CHF, diabetes, hypertension, hyperlipidemia who presents emerged department accomp anied by family for evaluation of headache, fevers, body aches, nausea decreased oral intake that developed rapidly today in the setting of known exposure to COVID-19 patient's nephew visiting to help her after recent discharge from this facility following admission for hypervolemia. Prior to that the patient was admitted and had a left BKA performed. On arrival, the patient is acute on chronically ill-appearing, afebrile stable vital signs. She appears clinically dry. Her abdomen is benign. O2 saturation is 100% on room air with normal respiratory effort. Chest x-ray negative for acute cardiopulmonary process WBC 3.8K, nonspecific. HCT and platelets within normal limits. Sodium 129 and electrolytes otherwise without significant abnormality. Chemistry without metabolic acidosis. Creatinine 1.3 slightly increased from prior consistent with the patient's clinically dry appearance. Patient's COVID-19 PCR was positive and thus confirms her COVID-19 infection. He was ordered for IV fluid hydration gently and APAP, famotidine and Zofran. However given the patient's profound weakness and continued symptoms she did agree with plan for admission for supportive care. Her daughter at the bedside is in agreement with this plan. Case was discussed with Dr. Rubi, [facility] hospitalist, who will evaluate the patient for admission. Triage Nursing notes reviewed and agree them. Prior medical records reviewed Vital Signs: reviewed and remarkable for no significant abnormalities Differential diagnosis: Infection, dehydration, metabolic abnormality, hypo/hyperglycemia, electrolyte disturbance, anemia, hypoxia, cardiac sources, intracerebral event, toxicologic, neurologic, as well as other pathologies. ER treatment provided: See below. Diagnostics interpreted by me: ECG: Ventricular paced rhythm, 80 bpm, no ectopy, no overt acute ischemia. Cardiac Monitoring: An order for continuous cardiac monitoring was placed and demonstrated Ventricular paced rhythm, 80 bpm, no ectopy. Laboratory studies: See below Imaging studies: See below Consultation(s): Case was discussed with Dr. Rubi, [facility] hospitalist, who will evaluate the patient for admission. HPI: The patient is a pleasant 81-year-old woman with a past medical history of CHF, diabetes, hypertension, hyperlipidemia who presents emerged department accompanied by family for evaluation of headache, fevers, body aches, nausea d ecreased oral intake that developed rapidly today in the setting of known exposure to COVID-19 patient's nephew visiting to help her after recent discharge from this facility following admission for hypervolemia. Prior to that the patient was admitted and had a left BKA performed. ROS: See above HPI for pertinent positives & negatives. A total of 10 systems reviewed and were otherwise negative. VITALS:See Below PHYSICAL EXAMINATION: GENERAL: Awake, alert, fatigued/acute on chronically ill-appearing, in no distress HENT: Normocephalic, atraumatic. Oropharynx with dry mucous membranes and otherwise unremarkable. EYES: Normal conjunctiva. Sclera non-icteric. NECK: Supple. No nuchal rigidity. FROM. No JVD. RESPIRATORY: Clear to auscultation. CARDIAC: Regular rate, normal rhythm. Extremities warm and well perfused. Pulses equal. ABDOMEN: Soft, non-distended. No tenderness to palpation. No rebound or guarding. No masses. RECTAL: Deferred. MUSCULOSKELETAL: Chest examination reveals no tenderness. The back is sy mmetrical on inspection without obvious abnormality. There is no CVA tenderness to palpation. No joint edema. LOWER EXTREMITIES: Calves are equal size bilaterally and non-tender. No edema. No discoloration. NEURO: Normal sensorium. Generalized weakness with no focal sensory or motor deficits noted. SKIN: No rash or jaundice noted. 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 Communication Tools: IPad Personal Lines Insurance Agent Required: Yes Beliefs That Will Affect Care: None marital status: Current Living Situation: Family How many Children do You have: 3 Other Information That Helps Us Care for You: No Feels Safe at Home: Yes Safety Concerns: Feels Safe At This Time Assistive Devices: Walker and Wheelchair Allergies Allergies Allergy/AdvReac Type Severity Reaction Status Date / Time No Known Allergies Allergy Unverified 10/25/21 21:59 Home Meds Home Medications Medication Instructions Recorded Confirmed apixaban 5 mg tablet (Eliquis) 5 mg PO DAILY 10/25/21 10/25/21 atorvastatin 20 mg tablet 20 mg PO DAILY 10/25/21 10/25/21 enalapril 10 1 tab PO DAILY 10/25/21 10/25/21 mg-hydrochlorothiazide 25 mg tablet metformin 500 mg tablet 500 mg PO BID 10/25/21 10/25/21 Previous Rx's Medication Instructions Recorded furosemide 40 mg tablet (Lasix) 40 mg PO DAILY #30 tabs 10/28/21 Results & Data (ED) Vital Signs Vital Signs - 24 hr 10/31/21 20:24 10/31/21 23:36 Temperature 36.0 C L Temperature Source Temporal Artery Scan Pulse Rate 80 Pulse Rate [Right Finger] 80 Respiratory Rate 18 18 Respiratory Effort / Characteristics Non-Labored Spontaneous Respiratory Depth Normal Normal Blood Pressure 109/58 L Blood Pressure [Right Arm] 121/65 Blood Pressure Mean 75 Blood Pressure Mean [Right Arm] 83 Pulse Oximetry 97 100 Oxygen Delivery Method Room Air Room Air Sepsis Recent Fever Within 48 Hours Yes Sepsis New/Unexplained Change in Mental Status N/A Sepsis Action Taken by Nursing No Action Required Laboratory Data Attestation: I reviewed the patient's lab results. Result diagrams: 11/01/21 08:25 11/01/21 09:41 Lab Results 10/31/21 10/31/21 10/31/21 Range/Units 20:40 20:40 20:40 WBC 3.87 L (4.8-10.8) K/ul RBC 4.10 (3.93-5.22) M/uL Hgb 11.0 L (12.0-16.0) g/dl Hct 35.4 (34.1-44.9) % MCV 86.3 (80.0-100.0) fL MCH 26.8 (25.0-34.0) pg MCHC 31.1 L (32.0-36.0) g/dL RDW Std Deviation 63.8 H (36.4-46.3) fL RDW Coeff of Edwardo 20.3 H (11.5-14.5) % Plt Count 227 (130-400) K/uL MPV 11.5 (9.4-12.3) fL Immature Gran % (Auto) 0.3 % Neut % (Auto) 56.8 % Lymph % (Auto) 34.4 % [place] % (Auto) 8.0 % Eos % (Auto) 0.0 % Baso % (Auto) 0.5 % Neut # (Auto) 2.20 (1.4-6.5) K/uL Lymph # (Auto) 1.33 (1.2-3.4) K/uL [place] # (Auto) 0.31 (0.24-0.82) K/uL Eos # (Auto) 0.00 (0-0.50) K/uL Baso # (Auto) 0.02 (0-0.2) K/uL Immature Gran # (Auto) 0.01 (0.00-0.02) K/uL Toxic Vacuolation 1+ Anisocytosis Present Sodium 129 L (136-145) mmol/L Potassium 3.6 (3.5-5.1) mmol/L Chloride 93 L (98-107) mmol/L Carbon Dioxide 25 (21-32) mmol/L Anion Gap 11 (3-11) BUN 23 (6-23) mg/dl Creatinine 1.32 H (0.6-1.2) mg/dl Est Cr Clr Drug Dosing Not Reportable Est GFR ( Amer) 44.1 ml/min Est GFR (Non-Af Amer) 38.0 ml/min BUN/Creatinine Ratio 17.4 (10-20) Glucose 119 H (70-99(Fasting)) mg/dl Osmolality 282 (280-300) mOsm/kg Calcium 9.0 (8.5-10.1) mg/dl Total Bilirubin 0.8 (0.2-1.0) mg/dl AST 21 (13-39) U/L ALT 7 (7-52) U/L Alkaline Phosphatase 96 (34-104) U/L Total Protein 8.6 H (6.0-8.3) gm/dl Albumin 3.6 (3.4-5.0) gm/dl Globulin 5.0 H (2.5-4.0) gm/dl Albumin/Globulin Ratio 0.7 L (0.9-2) SARS-CoV-2 (PCR) (Negative) Influenza Type A (PCR) (Neg) Influenza Type B (PCR) (Neg) RSV (RT-PCR) (Neg) 10/31/21 Range/Units 21:41 WBC (4.8-10.8) K/ul RBC (3.93-5.22) M/uL Hgb (12.0-16.0) g/dl Hct (34.1-44.9) % MCV (80.0-100.0) fL MCH (25.0-34.0) pg MCHC (32.0-36.0) g/dL RDW Std Deviation (36.4-46.3) fL RDW Coeff of Edwardo (11.5-14.5) % Plt Count (130-400) K/uL MPV (9.4-12.3) fL Immature Gran % (Auto) % Neut % (Auto) % Lymph % (Auto) % [place] % (Auto) % Eos % (Auto) % Baso % (Auto) % Neut # (Auto) (1.4-6.5) K/uL Lymph # (Auto) (1.2-3.4) K/uL [place] # (Auto) (0.24-0.82) K/uL Eos # (Auto) (0-0.50) K/uL Baso # (Auto) (0-0.2) K/uL Immature Gran # (Auto) (0.00-0.02) K/uL Toxic Vacuolation Anisocytosis Sodium (136-145) mmol/L Potassium (3.5-5.1) mmol/L Chloride (98-107) mmol/L Carbon Dioxide (21-32) mmol/L Anion Gap (3-11) BUN (6-23) mg/dl Creatinine (0.6-1.2) mg/dl Est Cr Clr Drug Dosing Est GFR ( Amer) ml/min Est GFR (Non-Af Amer) ml/min BUN/Creatinine Ratio (10-20) Glucose (70-99(Fasting)) mg/dl Osmolality (280-300) mOsm/kg Calcium (8.5-10.1) mg/dl Total Bilirubin (0.2-1.0) mg/dl AST (13-39) U/L ALT (7-52) U/L Alkaline Phosphatase (34-104) U/L Total Protein (6.0-8.3) gm/dl Albumin (3.4-5.0) gm/dl Globulin (2.5-4.0) gm/dl Albumin/Globulin Ratio (0.9-2) SARS-CoV-2 (PCR) POSITIVE A* (Negative) Influenza Type A (PCR) Negative (Neg) Influenza Type B (PCR) Negative (Neg) RSV (RT-PCR) Negative (Neg) Administered Medications Acetaminophen (Acetaminophen 325 Mg Tab) 650 mg PO Q4H PRN PRN Reason: pain/fever Stop: 12/01/21 02:24 Last Admin: 11/01/21 21:24 Dose: 650 mg Documented By: Admin: 11/01/21 03:29 Dose: 650 mg Documented By: QUYEN Apixaban (Apixaban 2.5 Mg Tab) 2.5 mg PO BID [facility] Stop: 12/01/21 08:59 Last Admin: 11/01/21 21:25 Dose: 2.5 mg Documented By: Admin: 11/01/21 08:51 Dose: 2.5 mg Documented By: [id number] Atorvastatin Calcium (Atorvastatin 20 Mg Tab) 20 mg PO DAILY [facility] Stop: 12/01/21 08:59 Last Admin: 11/01/21 08:50 Dose: 20 mg Documented By: [id number] Benzonatate (Benzonatate 100 Mg Capsule) 100 mg PO TID PRN PRN Reason: cough Stop: 12/01/21 20:59 Last Admin: 11/01/21 22:57 Dose: 100 mg Documented By: QUYEN Dexamethasone (Dexamethasone 4 Mg Tab) 6 mg PO DAILY [facility] Stop: 12/01/21 08:59 Last Admin: 11/01/21 08:51 Dose: 6 mg Documented By: [id number] Insulin Aspart (Insulin Aspart Per Unit) 0 units SC ACHS [facility] Stop: 12/01/21 07:29 Last Admin: 11/01/21 21:52 Dose: Not Given Documented By: QUYEN Co-signed By: NA Admin: 11/01/21 17:47 Dose: Not Given Documented By: [id number] Admin: 11/01/21 13:06 Dose: Not Given Documented By: [id number] Admin: 11/01/21 08:56 Dose: Not Given Documented By: [id number] Discontinued Medications Acetaminophen (Ofirmev) 1,000 mg in 100 mls @ 400 mls/hr IV NOW STA Stop: 10/31/21 22:00 Last Infusion: 11/01/21 00:23 Dose: 0 mls/hr Documented By: Admin: 10/31/21 22:56 Dose: 400 mls/hr Documented By: IMELDA Sodium Chloride (Nss) 500 mls @ 999 mls/hr IV .Q31M ONE Stop: 10/31/21 23:09 Last Infusion: 11/01/21 02:27 Dose: 0 mls/hr Documented By: Admin: 10/31/21 22:56 Dose: 999 mls/hr Documented By: IMELDA Famotidine (Pepcid 20mg Iv Push) 20 mg in 5 mls @ 2.5 mls/min IV NOW STA Stop: 10/31/21 22:40 Last Admin: 10/31/21 23:33 Dose: 2.5 mls/min Documented By: IMELDA Acetaminophen (Ofirmev) 1,000 mg in 100 mls @ 400 mls/hr IV NOW STA Stop: 10/31/21 22:53 Last Admin: 11/01/21 00:23 Dose: Not Given Documented By: IMELDA Remdesivir 200 mg/ Sodium (Chloride) 250 mls @ 125 mls/hr IV NOW STA; Protocol Stop: 11/01/21 09:38 Last Infusion: 11/01/21 11:07 Dose: 0 mls/hr Documented By: [id number] Admin: 11/01/21 08:50 Dose: 125 mls/hr Documented By: [id number] Ondansetron HCl (Ondansetron Inj 2 Mg/Ml 2 Ml Vial) 4 mg IV NOW STA Stop: 10/31/21 22:40 Last Admin: 10/31/21 23:33 Dose: 4 mg Documented By: IMELDA Imaging Data Radiologist's Impression: Chest X-Ray 10/31/21 22:39 XR chest 1V portable HISTORY: 81 years-old Female covid, sob acute shortness of breath COMPARISON: 10/25/2021 TECHNIQUE: Portable AP view of the chest FINDINGS: Marked cardiomegaly. Left subclavian pacer. Atherosclerosis of the thoracic aorta. No pneumothorax, pleural effusion, airspace consolidation or overt pulmonary edema. Degenerative changes of the shoulders and spine. IMPRESSION: Cardiomegaly without acute process. ACT 112: Negative or not required by law. The above report was generated using voice recognition software. It may contain grammatical, syntax or spelling errors. Electronically signed by: Allen Mcclellan M.D. 10/31/2021 11:06 PM Discharge Plan Visit Data Chief Complaint: Fever Stated Complaint: COVID + 8/5, FEVER ED Provider: Dandre Sandhu Discharge Problem: COVID-19, Hyponatremia, Renal insufficiency Patient Disposition: Admitted As Inpatient Discharge Instructions Interventions: ED Discharge Assessment Last Done: 11/01/21 01:51
[2021-11-01] MEDS ORDERED: POLYETHYLENE (MIRALAX) 17 GM PACK PO PRN (02:25)
[2021-11-01] MEDS ORDERED: GLUCOSE 40% GEL 15 GM TUBE PO PRN (02:25)
[2021-11-01] MEDS ORDERED: PHARMACY GLYCEMIC MGMT CONSULT PRN (02:25)
[2021-11-01] MEDS ORDERED: ONDANSETRON INJ 2 MG/ML 2 ML VIAL IV PRN (02:25)
[2021-11-01] MEDS ORDERED: ALUMINUM/MAGNESIUM SUSP 30 ML UDC PO PRN (02:25)
[2021-11-01] MEDS ORDERED: DEXTROSE 50% 50 ML SYRINGE IV PRN (02:25)
[2021-11-01] MEDS ORDERED: CARBOHYDRATES FOR HYPOGLYCEMIA PO PRN (02:25)
[2021-11-01] MEDS ORDERED: DC ALL PREVIOUSLY ORDERED DIABETES MEDS ONE (02:25)
[2021-11-01] MEDS ORDERED: GLUCOSE 10 TAB/TUBE PO PRN (02:25)
[2021-11-01] MEDS ORDERED: GLUCAGON FOR INJ 1 MG VIAL SQ PRN (02:25)
[2021-11-01 02:35] LABS: Appearance Urine Clear (Clear); Bilirubin Urine Negative (Negative); Blood Urine Negative (Negative); Color Urine Yellow; Glucose Urine UA Negative (Negative); Ketones Urine Negative (Negative); Leukocyte Esterase Urine Negative (Negative); Nitrite Urine Negative (Negative); Protein Urine Negative (Negative); Specific Gravity Urine 1.018 (1.000-1.030); Urobilinogen Urine Negative (Negative)
[2021-11-01] MEDS ORDERED: Patient's HEIGHT &/or WEIGHT Needed SCH (03:15)
[2021-11-01] MEDS: ACETAMINOPHEN 325 MG TAB PO PRN ×2 (03:29→21:24)
[2021-11-01] MEDS ORDERED: REMDESIVIR 200 MG in SODIUM CHLORIDE 0.9% 210 ML IV STA (07:39)
[2021-11-01 08:39] LABS: Hematocrit (blood only) 36.3 % (34.1-44.9); Hemoglobin 11.1 g/dl (12.0-16.0); Mean Corpuscular Hemoglobin 26.6 pg (25.0-34.0); Mean Corpuscular Hgb Conc 30.6 g/dL (32.0-36.0); Mean Corpuscular Volume 86.8 fL (80.0-100.0); RDW Coefficient of Variation 20.3 % (11.5-14.5); RDW Standard Deviation 65.1 fL (36.4-46.3); Red Blood Count 4.18 M/uL (3.93-5.22); White Blood Count 2.79 K/ul (4.8-10.8)
[2021-11-01] MEDS: ATORVASTATIN 20 MG TAB PO SCH (08:50)
[2021-11-01] MEDS: dexAMETHasone 4 MG TAB PO SCH (08:51)
[2021-11-01] MEDS: APIXABAN 2.5 MG TAB PO SCH ×2 (08:51→21:25)
[2021-11-01] MEDS: INSULIN ASPART PER UNIT SC SCH ×4 (08:56→21:52)
[2021-11-01 09:07] LABS: Anion Gap 5 (3-11); BUN Creatinine Ratio 18.8 (10-20); Blood Urea Nitrogen 26 mg/dl (6-23); Calcium 8.5 mg/dl (8.5-10.1); Carbon Dioxide 29 mmol/L (21-32); Chloride 95 mmol/L (98-107); Creatinine Clr Calc Pharmacy 24.5 ml/min; Est GFR (African American) 41.7 ml/min; Glucose 100 mg/dl (70-99(Fasting)); Sodium 129 mmol/L (136-145)
[2021-11-01 09:10] LABS: Mean Platelet Volume 11.8 fL (9.4-12.3); Platelet Count 163 K/uL (130-400)
--- NOTE | 2021-11-01 09:37 | Electrocardiogram Report ---
Test Reason : Blood Pressure : / mmHG Vent. Rate : 080 BPM Atrial Rate : 375 BPM P-R Int : 000 ms QRS Dur : 170 ms QT Int : 472 ms P-R-T Axes : 000 -79 092 degrees QTc Int : 544 ms Ventricular-paced rhythm Abnormal ECG When compared with ECG of 25-OCT-2021 19:22, No significant change was found Confirmed by Ryan Navarro ([id number]) on 11/01/2021 9:37:00 AM Referred By: REFERRED SELF Confirmed By:Ryan Navarro
[2021-11-01 10:05] LABS: ALC (manual) 1.51 K/uL (1.2-3.4); ANC (manual) 1.14 K/uL (1.4-6.5); Basophils # (manual) 0.03 K/uL (0-0.2); Basophils % (manual) 1 %; Giant Platelets 1+; Hypochromasia Present; Lymphocytes # (manual) 1.51 K/uL (1.2-3.4); Lymphocytes % (manual) 54 %; Monocytes # (manual) 0.11 K/uL (0.24-0.82); Monocytes % (manual) 4 %; Neutrophils # (manual) 1.14 K/uL (1.4-6.5); Neutrophils % (manual) 41 %; Polychromasia 1+
--- NOTE | 2021-11-01 14:32 | Pharmacy Report ---
Pharmacy Glycemic Sign Off Nt - Date of Service November 01, 2021 - Assessment & Plan ASSESSMENT: * Pharmacy was consulted by Dr. Marcum on 11/01/21 for glycemic control and to write orders per [facility] inpatient glycemic control protocol. * Major changes made by pharmacy to antidiabetic regimen include: * Starting bolus insulin * Patient has been receiving/requiring 0 units of insulin per day for adequate glycemic control * BSGs ranging 101-134 mg/dl * Do not anticipate further changes in patient status that would quickly deteriorate glycemic control (i.e. patient to be NPO for upcoming procedure, steroids tapering, starting tube feedings, etc). * Please see recommendations for outpatient antidiabetic regimen below. PLAN FOR INPATIENT GLYCEMIC CONTROL: No changes needed to current regimen. * No basal insulin * Continue NovoLog per scale ACHS/Q6hrs while NPO * Goal range = 110-140 mg/dl * CF = 45 mg/dl/unit * CR = 1 unit for ever 15 g CHO consumed * Pharmacy is signing off of glycemic consult and will no longer be making adjustments to inpatient regimen. Please feel free to re-consult if needed. Thank you.
--- NOTE | 2021-11-01 18:27 | Communication Note ---
Date of Service: November 01, 2021 Seen in follow-up from early a.m. admission. Other than cough she is feeling better. Notes that she does have some very bad coughing fits where she almost feels like she is choking. In between she feels okay. No short of breath when she is not coughing. Otherwise feels well. Feels like she was doing okay at home prior to getting sick with COVID, felt like she was doing well with family support. All of this was gleaned from the patient herself with assistance from medical translation. Separately, after discussing the case with the patient via medical translation, discussed with daughter at the bedside, who notes that she to felt that the patient was doing well at home, and feels like she would be well to take care of them againwe discussed following her into tomorrow as it relates to her COVID to ensure she does not get any worseand then a plan towards home. The added level of complexity to this is that the patient's is now down in the ER being evaluated as peter she notes that the ability of family support may be a bit variable depending on what happens with his situation Vitals noted, in general she is awake and alert pleasant no distress. HEENT normocephalic atraumatic mucous membranes moist. Breathing unlabored no accessory muscle use good effort. Skin without rashes pallor or icterus. COVIDmostly seems to have cough and fatiguefortunately no hypoxia. Is on Decadron, remdesivir due to high risk for decompensation, although given that she does not have an oxygen requirement at this time, low threshold to DC both. Chronic systolic congestive heart failure (HFrEF)compensated, does not appear to be decompensated at all. Overall situation seems that this admission was purely related to getting COVID. DVT prophylaxisanticoagulated with apixaban.
[2021-11-01] MEDS: BENZONATATE 100 MG CAPSULE PO PRN (22:57)
--- NOTE | 2021-11-02 00:24 | Billing Data ---
Date of Service November 02, 2021 Coding Level of Care Code 70079 Initial Inpt Care Lvl 3
[2021-11-02 08:31] LABS: Hematocrit (blood only) 37.6 % (34.1-44.9); Hemoglobin 11.7 g/dl (12.0-16.0); Mean Corpuscular Hemoglobin 26.4 pg (25.0-34.0); Mean Corpuscular Hgb Conc 31.1 g/dL (32.0-36.0); Mean Corpuscular Volume 84.7 fL (80.0-100.0); RDW Standard Deviation 62.3 fL (36.4-46.3); Red Blood Count 4.44 M/uL (3.93-5.22); White Blood Count 3.84 K/ul (4.8-10.8)
[2021-11-02 08:50] LABS: Albumin Globulin Ratio 0.7 (0.9-2); BUN Creatinine Ratio 24.2 (10-20); Bilirubin,Total 0.6 mg/dl (0.2-1.0); Calcium 8.8 mg/dl (8.5-10.1); Creatinine Clr Calc Pharmacy 27.3 ml/min; Est GFR (African American) 47.5 ml/min; Globulin 4.6 gm/dl (2.5-4.0); Potassium 3.9 mmol/L (3.5-5.1); Total Protein 7.6 gm/dl (6.0-8.3)
[2021-11-02] MEDS: FUROSEMIDE 40 MG TAB PO SCH (09:03)
[2021-11-02] MEDS: dexAMETHasone 4 MG TAB PO SCH (09:03)
[2021-11-02] MEDS: INSULIN ASPART PER UNIT SC SCH ×4 (09:03→21:45)
[2021-11-02] MEDS: APIXABAN 2.5 MG TAB PO SCH ×2 (09:03→21:45)
[2021-11-02] MEDS: ATORVASTATIN 20 MG TAB PO SCH (09:03)
[2021-11-02] MEDS: BENZONATATE 100 MG CAPSULE PO PRN ×3 (09:04→23:01)
[2021-11-02 09:06] LABS: Immature Granulocytes # (auto) 0.01 K/uL (0.00-0.02); Immature Granulocytes % (auto) 0.3 %; Lymphocytes # (auto) 1.29 K/uL (1.2-3.4); Lymphocytes % (auto) 33.6 %; Monocytes # (auto) 0.16 K/uL (0.24-0.82); Monocytes % (auto) 4.2 %; Neutrophils # (auto) 2.38 K/uL (1.4-6.5); Neutrophils % (auto) 61.9 %; Platelet Count 198 K/uL (130-400)
[2021-11-02] MEDS: REMDESIVIR 100 MG in SODIUM CHLORIDE 0.9% 230 ML IV SCH (12:53)
--- NOTE | 2021-11-02 19:26 | Hospitalist Progress Note ---
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 COVID-19 At this time fairly mild symptoms, saturating adequately on room air, no signs of viral pneumonia on CXR We will start dexamethasone 6 mg daily, as her symptoms began within the past 24 hours and would be likely to do poorly if her symptoms worsen Isolation precautions Admit to [facility] Hyponatremia Unclear etiology, but during recent hospitalization patient was not hyponatremic She does not have any neurologic symptoms at this time Hold enalaprilHCTZ as this could potentially be contributing ?SIADH in the setting of COVID-19 Urine sodium and urine osmolality pending Monitor sodium in a.m. [place]UG[place]A Creatinine elevated to 1.3, at time of discharge 4 days ago patient's creatinine was at 1.1 With her history of CHF we will hold on IV fluid hydration Hold furosemide, enalaprilHCTZ DM2 Hold home metformin SSI while admitted glycemic consult placed Atrial fibrillation Continue home Eliquis Hyperlipidemia Continue home atorvastatin DVT prophylaxis: Anticoagulated on Eliquis Diet: Heart healthy, DM 2 Dispo: Admit to [facility] consult PT/OT to evaluate for home needs CODE STATUS: Full Admission and Anticipated Discharge Date Admission Date: November 01, 2021 Subjective Seen with the assistance of medical translation. Breathing is fine. No dyspnea. Cough is actually better. Appetite is good. She feels up to going home. Later in discussion with patient's daughterwho is her caregivershe notes likely will be a safer home environment tomorrow. Review of Systems Review of Systems: All systems reviewed & are unremarkable except as noted in HPI & below Physical Exam Physical Exam: In general she is awake and alert pleasant no distress. HEENT normocephalic atraumatic mucous membranes moist. Breathing unlabored no accessory muscle use good effort. Lungs are clear without rales rhonchi or wheezes. Skin shows no rashes no pallor or icterus. Results & Data Results & Data ([facility]) Vital Signs (Past 12 Hours) Vital Signs Temp Pulse Pulse Resp BP Pulse Ox O2 Del Method 11/02/21 15:05 97.3 F L 80 20 122/73 95 Room Air 11/02/21 08:30 Room Air 11/02/21 09:06 97.5 F L 80 18 108/63 99 Room Air PG Care Time/CCT Total # of Minutes Spent Total Time Spent with Patient: Total time spent is greater than 50% in coordination of care (as documented) at patient's floor/unit and/or counseling patient: Coding Level of Care Code 97768 Subseq Hosp Care Lvl 2 Diagnoses COVID-19 U07.1
[2021-11-02] MEDS: ACETAMINOPHEN 325 MG TAB PO PRN (23:05)
[2021-11-03] MEDS: dexAMETHasone 4 MG TAB PO SCH (07:51)
[2021-11-03] MEDS: APIXABAN 2.5 MG TAB PO SCH ×2 (07:51→20:15)
[2021-11-03] MEDS: FUROSEMIDE 40 MG TAB PO SCH ×2 (07:52→08:05)
[2021-11-03] MEDS: ATORVASTATIN 20 MG TAB PO SCH (07:52)
[2021-11-03] MEDS: INSULIN ASPART PER UNIT SC SCH ×4 (08:42→22:08)
[2021-11-03] MEDS: ACETAMINOPHEN 325 MG TAB PO PRN ×2 (10:31→14:30)
[2021-11-03 12:38] LABS: Hematocrit (blood only) 39.1 % (34.1-44.9); Hemoglobin 12.1 g/dl (12.0-16.0); Mean Corpuscular Hemoglobin 26.5 pg (25.0-34.0); Mean Corpuscular Hgb Conc 30.9 g/dL (32.0-36.0); Mean Corpuscular Volume 85.7 fL (80.0-100.0); RDW Coefficient of Variation 20.3 % (11.5-14.5); RDW Standard Deviation 63.5 fL (36.4-46.3); Red Blood Count 4.56 M/uL (3.93-5.22); White Blood Count 9.26 K/ul (4.8-10.8)
[2021-11-03 12:51] LABS: BUN Creatinine Ratio 26.9 (10-20); Calcium 8.8 mg/dl (8.5-10.1); Creatinine Clr Calc Pharmacy 28.5 ml/min; Est GFR (African American) 49.9 ml/min; Est GFR (Non-African American) 43.1 ml/min; Potassium 3.9 mmol/L (3.5-5.1)
[2021-11-03] MEDS: REMDESIVIR 100 MG in SODIUM CHLORIDE 0.9% 230 ML IV SCH (12:53)
[2021-11-03 13:34] LABS: Platelet Count 221 K/uL (130-400)
[2021-11-03] MEDS ORDERED: FUROSEMIDE 40 MG/4 ML VIAL IV ONE (14:11)
[2021-11-03] MEDS ORDERED: POTASSIUM CHLORIDE CRTAB 20 MEQ TABCR PO STA (14:11)
--- NOTE | 2021-11-03 14:14 | Hospitalist Progress Note ---
Date of Service November 03, 2021 Assessment & Plan (1) COVID-19: Plan: Although previous cxr and today's cxr does not show discrete pneumonia her lung exam is markedly abnormal with wheezes/rhonchi/course BS/poor air movement. At minimum has acute bronchitis from her COVID. Can't rule out element of pulmonary edema contributing to lung exam findings and her cough. She is day #3 of dexamethasone 6mg daily. She is day #3 of Remdesivir. Plan - * flutter valve/incentive ordered * add scheduled bronchodilators * add mucinex * lasix 40mg IV x 1 if decompensated CHF is contributing to current symptomatology * cxr ordered and results as noted in this progress note (2) Acute on chronic systolic heart failure: Plan: suspected decompensation JVD present on exam; weight is higher than during previous admission hold PO lasix moving forward lasix 40mg IV x 1 now re-eval for additional diuresis tomorrow she is ventricularly paced uncertain why she is not on BB - consider low-dose coreg or metoprolol succinate (3) Aortic stenosis: Plan: moderate on echo 09/2021 f/u with cardiology upon return to [place] will need routine surveillance (4) Hyponatremia: Plan: suspect 2nd to #2 diurese Na should improve with diuretics (5) Diabetes: Plan: add lantus 6 units daily cont novolog SSI recent a1c 5.5% holding metformin accuracy of a1c in light of her anemia? (6) Hyperlipidemia: Plan: cont statin (7) Hypertension: Plan: controlled - even without her usual DANE-HCTZ cont to monitor (8) Below-knee amputation of left lower extremity: Plan: incision healed cont local dressings f/u with surgeon upon return to [place] (9) Paroxysmal A-fib: Plan: paced on EKG cont eliquis 2.5mg BID (10) Pacemaker: Plan: uncertain reason for placement tachy-bandar (has h/o a.fib)? heart block? other? (11) AUG[place]A (acute kidney injury): Plan: resolved (12) DVT prophylaxis: Plan: eliquis 2.5mg BID Plan updated pt's daughter by phone this evening cont PT/OT Admission and Anticipated Discharge Date Admission Date: November 01, 2021 Subjective bedside visit and interview performed with assistance of smoke jumper patient reports the following - * poor appetite; blames it on the food we have at the hospital (daughter reports, however, appetite is poor at home too) * severe cough, worse at night * poor sleep due to cough * mild dyspnea * no chest pain * weakness she had her left BKA at a hospital in [place] in August Review of Systems Review of Systems: gen - weak, fatigue, poor appetite cv - no chest pain pulm - no sputum; dyspnea/cough GI - no abd pain; no nausea, vomiting or diarrhea Physical Exam 2 Physical Exam: gen - thin, very weak when trying to move around in the bed neck - JVD present mouth - MMM heart - RRR, s1 s2, 2/6 systolic murmur LSB lungs - diffuse wheezes with rhonchi, poor air movement, crackles bases abd - soft NT ND BS+ ext - left BKA - stump inspected (dressings removed) - incision healed but black eschar in appearance; no drainage; no erythema; no dehiscence; right leg 2+ pulses, no edema psych - via medical physics researcher - a/o x 3 Results & Data Results & Data ([facility]) Vital Signs (Past 12 Hours) Vital Signs Temp Pulse Resp BP Pulse Ox O2 Del Method 11/03/21 07:38 Room Air 11/03/21 07:32 36.8 C 79 18 112/67 96 Room Air Laboratory Results Na 131 Cr stable Diagnostic Findings Chest X-Ray 11/03/21 14:25 XR chest 1V portable CLINICAL HISTORY: COVID; b/l wheezes crackles. COMPARISON STUDY: 10/31/2021 TECHNIQUE: 1 view of the chest FINDINGS: Single frontal view of the chest demonstrates the heart to again be enlarged with permanent cardiac pacer in place. The lungs are clear of alveolar opacities. There is no evidence for pleural effusion. There is no evidence for vascular congestion. There is no acute osseous pathology. IMPRESSION: 1. No acute cardiopulmonary disease. ACT 112: Negative or not required by law. Electronically signed by: Bolivar Fonseca M.D. 11/03/2021 3:20 PM PG Care Time/CCT Total # of Minutes Spent Total Time Spent with Patient: Total time spent is greater than 50% in coordination of care (as documented) at patient's floor/unit and/or counseling patient: Coding Level of Care Code 32625 Subseq Hosp Care Lvl 3 Diagnoses COVID-19 U07.1 Acute on chronic systolic heart failure I50.23 Aortic stenosis I35.0 Hyponatremia E87.1 Diabetes E11.9 Hyperlipidemia E78.5 Hypertension I10 Below-knee amputation of left lower extremity S88.112A Paroxysmal A-fib I48.0 Pacemaker Z95.0 AUG[place]A (acute kidney injury) N17.9 DVT prophylaxis Z29.9
[2021-11-03] MEDS: guaiFENesin 600 MG TABCR PO SCH ×2 (14:31→20:15)
[2021-11-03] MEDS: ALBUT/IPRATROP 3MG/0.5MG NEB 3 ML VIAL NEB SCH ×2 (15:15→19:09)
--- NOTE | 2021-11-03 15:21 | XRay Report ---
XR chest 1V portable CLINICAL HISTORY: COVID; b/l wheezes crackles. COMPARISON STUDY: 10/31/2021 TECHNIQUE: 1 view of the chest FINDINGS: Single frontal view of the chest demonstrates the heart to again be enlarged with permanent cardiac p acer in place. The lungs are clear of alveolar opacities. There is no evidence for pleural effusion. There is no evidence for vascular congestion. There is no acute osseous pathology. IMPRESSION: 1. No acute cardiopulmonary disease. ACT 112: Negative or not required by law. Electronically signed by: Bolivar Fonseca M.D. 11/03/2021 3:20 PM
[2021-11-03] MEDS ORDERED: traMADol HCL 50 MG TABLET PO STA (20:05)
[2021-11-03] MEDS: LANTUS PER UNIT CHARGE SQ SCH (22:38)
[2021-11-04] MEDS: ALBUT/IPRATROP 3MG/0.5MG NEB 3 ML VIAL NEB SCH (07:32)
[2021-11-04] MEDS: guaiFENesin 600 MG TABCR PO SCH ×2 (08:51→20:46)
[2021-11-04] MEDS: APIXABAN 2.5 MG TAB PO SCH ×2 (08:51→20:45)
[2021-11-04] MEDS: dexAMETHasone 4 MG TAB PO SCH (08:51)
[2021-11-04] MEDS: ATORVASTATIN 20 MG TAB PO SCH (08:51)
[2021-11-04 08:57] LABS: BUN Creatinine Ratio 28.7 (10-20); Calcium 8.8 mg/dl (8.5-10.1); Creatinine Clr Calc Pharmacy 29.4 ml/min; Est GFR (Non-African American) 44.9 ml/min; Potassium 3.6 mmol/L (3.5-5.1)
[2021-11-04] MEDS: INSULIN ASPART PER UNIT SC SCH ×4 (09:00→21:10)
[2021-11-04] MEDS ORDERED: ALBUT/IPRATROP 3MG/0.5MG NEB 3 ML VIAL NEB PRN (10:19)
[2021-11-04] MEDS: REMDESIVIR 100 MG in SODIUM CHLORIDE 0.9% 230 ML IV SCH (13:26)
--- NOTE | 2021-11-04 15:43 | Hospitalist Progress Note ---
Date of Service November 04, 2021 Assessment & Plan (1) COVID-19: Plan: Although previous cxr and repeat cxr does not show discrete pneumonia her lung exam is markedly abnormal with wheezes/rhonchi/course BS/poor air movement. At minimum has acute bronchitis from her COVID. Can't rule out element of pulmonary edema contributing to lung exam findings and her cough. Now improving but still with cough and wheezing continue dexamethasone 6mg daily x 10 day course-last day 11/10 complete 5 day course of Remdesivir. Plan - * flutter valve/incentive ordered * ok to revert back to prn bronchodilators * continue mucinex * lasix 40mg IV x 1 given but none needed today (2) Acute on chronic systolic heart failure: Plan: suspected decompensation JVD present on exam but now improved; weight is higher than during previous admission restart home po lasix re-eval for additional diuresis tomorrow she is ventricularly paced uncertain why she is not on BB - consider low-dose coreg or metoprolol succinate (3) Aortic stenosis: Plan: moderate on echo 09/2021 f/u with cardiology upon return to [place] will need routine surveillance (4) Hyponatremia: Plan: suspect 2nd to HCTZ which has been held Na 133 today follow BMP (5) Diabetes: Plan: continue lantus 6 units daily cont novolog SSI recent a1c 5.5% holding metformin accuracy of a1c in light of her anemia? (6) Hyperlipidemia: Plan: cont statin (7) Hypertension: Plan: controlled - even without her usual DANE-HCTZ cont to monitor (8) Below-knee amputation of left lower extremity: Plan: incision healed cont local dressings f/u with surgeon upon return to [place] (9) Paroxysmal A-fib: Plan: paced on EKG cont eliquis 2.5mg BID (10) Pacemaker: Plan: uncertain reason for placement tachy-bandar (has h/o a.fib)? heart block? other? (11) [place] (acute kidney injury): Plan: resolved (12) DVT prophylaxis: Plan: eliquis 2.5mg BID Plan Dispo-continued stay, possibly home tomorrow cont PT/OT Admission and Anticipated Discharge Date Admission Date: November 01, 2021 Subjective Feeling better today but still with a bad nonproductive cough. No CP or SOB. Is eating better as family bringing food from home. Review of Systems Review of Systems: All systems reviewed & are unremarkable except as noted in HPI & below Physical Exam Constitutional: WD/WN, vitals as above Eyes: + corneal abnormality (pterygium bilat) ENMT: external ear and nose normal, oropharynx normal Neck: trachea midline, no thyromegaly Respiratory: normal respiratory effort and + cough Auscultation: + wheezes (bilat exp); no crackles and no rhonchi Cardiovascular: RRR, no murmur, no edema Chest (Breasts): Chest: normal inspection of chest Gastrointestinal (Abdomen): normal bowel sounds, soft, nontender, no hepatosplenomegaly Musculoskeletal: Extremities: + extremities abnormal to inspection (left BKA with dressing over stump c/d/i), no cyanosis and no clubbing Skin: no rashes, warm and dry Neurologic: moves all extremities and awake; no focal motor deficits Psychiatric: A+Ox3, euthymic affect Lymphatic: no lymphedema Results & Data Results & Data ([facility]) Vital Signs (Past 12 Hours) Vital Signs Temp Pulse Resp BP Pulse Ox O2 Del Method 11/04/21 08:00 Room Air 11/04/21 07:32 78 17 95 Room Air 11/04/21 06:28 36.6 C 86 16 120/55 L PG Care Time/CCT Total # of Minutes Spent Total Time Spent with Patient: Total time spent is greater than 50% in coordination of care (as documented) at patient's floor/unit and/or counseling patient: Coding Level of Care Code 89350 Subseq Hosp Care Lvl 2 Diagnoses COVID-19 U07.1 Acute on chronic systolic heart failure I50.23 Aortic stenosis I35.0 Hyponatremia E87.1 Diabetes E11.9 Hyperlipidemia E78.5 Hypertension I10 Below-knee amputation of left lower extremity S88.112A Paroxysmal A-fib I48.0 Pacemaker Z95.0 [place] (acute kidney injury) N17.9 DVT prophylaxis Z29.9
[2021-11-04] MEDS: FUROSEMIDE 40 MG TAB PO SCH (18:01)
[2021-11-04] MEDS: LANTUS PER UNIT CHARGE SQ SCH (21:10)
[2021-11-05] MEDS ORDERED: traMADol HCL 50 MG TABLET PO STA (03:58)
[2021-11-05 08:02] LABS: Hematocrit (blood only) 37.1 % (34.1-44.9); Hemoglobin 11.5 g/dl (12.0-16.0); Mean Corpuscular Hemoglobin 26.1 pg (25.0-34.0); Mean Corpuscular Volume 84.1 fL (80.0-100.0); RDW Coefficient of Variation 20.2 % (11.5-14.5); RDW Standard Deviation 62.6 fL (36.4-46.3); Red Blood Count 4.41 M/uL (3.93-5.22); White Blood Count 4.52 K/ul (4.8-10.8)
[2021-11-05 08:14] LABS: Mean Platelet Volume 11.8 fL (9.4-12.3); Platelet Count 199 K/uL (130-400)
[2021-11-05 08:29] LABS: Anisocytosis Present; Immature Granulocytes # (auto) 0.02 K/uL (0.00-0.02); Immature Granulocytes % (auto) 0.4 %; Lymphocytes # (auto) 1.15 K/uL (1.2-3.4); Lymphocytes % (auto) 25.4 %; Monocytes # (auto) 0.28 K/uL (0.24-0.82); Monocytes % (auto) 6.2 %; Neutrophils # (auto) 3.07 K/uL (1.4-6.5); Polychromasia 1+
[2021-11-05 08:39] LABS: Anion Gap 7 (3-11); Blood Urea Nitrogen 34 mg/dl (6-23); C Reactive Protein < 0.50 mg/dl (0-0.5); Calcium 8.7 mg/dl (8.5-10.1); Carbon Dioxide 28 mmol/L (21-32); Chloride 100 mmol/L (98-107); Creatinine Clr Calc Pharmacy 32.9 ml/min; Est GFR (African American) 59.5 ml/min; Est GFR (Non-African American) 51.3 ml/min; Glucose 95 mg/dl (70-99(Fasting)); Potassium 3.6 mmol/L (3.5-5.1); Sodium 135 mmol/L (136-145)
[2021-11-05] MEDS: ATORVASTATIN 20 MG TAB PO SCH (09:15)
[2021-11-05] MEDS: APIXABAN 2.5 MG TAB PO SCH (09:15)
[2021-11-05] MEDS: guaiFENesin 600 MG TABCR PO SCH (09:15)
[2021-11-05] MEDS: dexAMETHasone 4 MG TAB PO SCH (09:15)
[2021-11-05] MEDS: INSULIN ASPART PER UNIT SC SCH ×2 (09:15→13:05)
[2021-11-05] MEDS: FUROSEMIDE 40 MG TAB PO SCH (11:07)
[2021-11-05] MEDS: REMDESIVIR 100 MG in SODIUM CHLORIDE 0.9% 230 ML IV SCH (13:11)
--- NOTE | 2021-11-05 14:17 | Discharge Summary ---
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 Patient is Hungarian-speaking only and was interviewed by myself without the need for translation services. She states she tested positive for COVID earlier today at home. She has a grandson who was helping her after her recent hospitalization who tested positive as well. Her symptoms have mainly been HAN, dizziness, fatigue, body aches, coughing, congestion. She denies any SOB, CP, palp, n/v, abd pain, diarrhea, urinary symptoms. Of note patient was recently admitted for SOB, which was thought to be related to CHF exacerbation. As above, denying SOB at this time. She tested negative for COVID19 on her prior admission. She was brought into the ED by family members but was unaccompanied at the time of my interview. In the ED patient had positive COVID19 PCR. CXR showed cardiomegaly without acute process. Lab work was significant for mild leukopenia of 3.87, hemoglobin 11, sodium found to be at 129 and creatinine elevated to 1.32. Patient received GI cocktail. Principal Diagnosis COVID-19 Pneumonitis Acute respiratory failure with hypoxia Discharge Exam Constitutional WD/WN, vitals as above Eyes + corneal abnormality (pterygium bilat) Neck trachea midline, no thyromegaly Respiratory normal respiratory effort, lungs clear to auscultation normal respiratory effort and + cough Auscultation: no crackles, no rhonchi and no wheezes Cardiovascular RRR, no murmur, no edema Chest (Breasts) Chest: normal inspection of chest Gastrointestinal (Abdomen) normal bowel sounds, soft, nontender, no hepatosplenomegaly Musculoskeletal Extremities: + extremities abnormal to inspection (left BKA with dressing over stump c/d/i), no cyanosis and no clubbing Skin no rashes, warm and dry Neurologic moves all extremities and awake; no focal motor deficits Psychiatric A+Ox3, euthymic affect Lymphatic no lymphedema Discharge Data Allergies Allergy/AdvReac Type Severity Reaction Status Date / Time No Known Allergies Allergy Unverified 10/25/21 21:59 Consultations 08/05/22 23:18 ED Decision to Admit Stat Hospital Course (1) COVID-19: Although previous cxr and repeat cxr does not show discrete pneumonia her lung exam is markedly abnormal with wheezes/rhonchi/course BS/poor air movement. At minimum has acute bronchitis from her COVID. Can't rule out element of pulmonary edema contributing to lung exam findings and her cough. Now much improved but remains with productive cough, feels much better, wants to go home not on O2 Received some lasix IV and now back on home po dose continue dexamethasone 6mg daily x 10 day course-last day 11/10 completed 5 day course of Remdesivir. 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 (3) Aortic stenosis: moderate on echo 09/2021 f/u with cardiology upon return to [place] will need routine surveillance (4) Hyponatremia: suspect 2nd to HCTZ which has been held Na 135 today dc HCTZ on discharge and only give enalapril (dc combo enalapril-HCTZ) (5) Diabetes: restart metformin on dc (6) Hyperlipidemia: cont statin (7) Hypertension: controlled continue enalapril, lasix dc HCTZ (8) Below-knee amputation of left lower extremity: incision healed cont local dressings f/u with surgeon upon return to [place] (9) Paroxysmal A-fib: paced on EKG cont eliquis 2.5mg BID (10) Pacemaker: uncertain reason for placement tachy-bandar (has h/o a.fib)? heart block? other? (11) [place] (acute kidney injury): resolved (12) DVT prophylaxis: eliquis 2.5mg BID Plan Dispo-dc to home with 24/7 care, no home health needed Total Time Total Time Spent Total Time Spent (In Minutes): 35 min Discharge Plan Discharge Items Patient Disposition: Home - Self-Care Reason For Visit: COVID-19 Discharge Diagnosis: COVID-19 Pneumonitis, acute respiratory failure with hypoxia Condition on Discharge: Fair Activity: As commented below Lifting: Gradually increase as tolerated Bathing: No limitations Exercise/Sports: Gradually increase as tolerated Non-emergency contact: Primary Care Provider Call non-emergency contact if: you have any medication questions and your symptoms worsen Follow-up/Referrals: PCP,NO [Primary Care Provider] - Diet: Heart Healthy Addtl Attending Provider Instructions: Please finish out the course of dexamethasone x 5 more days. You should remain in isolation from others for 5 more days. You can take Tessalon perles as needed for your cough. Prescriptions were called into the pharmacy for all of your other medications you should be taking. Please follow up with your PCP within 1 week. Pending Studies at Discharge: No Stand-Alone Forms: [facility], Smoking Cessation Medications and DC Order Prescriptions: New dexamethasone 6 mg tablet 6 mg PO DAILY Qty: 5 0RF benzonatate 100 mg Capsule 100 mg PO TID PRN (Reason: cough) Qty: 30 0RF enalapril maleate 10 mg tablet 10 mg PO DAILY Qty: 30 0RF Continued furosemide [Lasix] 40 mg tablet 40 mg PO DAILY Qty: 30 0RF metformin 500 mg Tablet 500 mg PO BID Qty: 60 0RF atorvastatin 20 mg Tablet 20 mg PO DAILY Qty: 30 0RF Changed apixaban 2.5 mg tablet 2.5 mg PO BID Qty: 60 0RF Discontinued enalapril-hydrochlorothiazide 10-25 mg Tablet 1 tab PO DAILY Discharge Orders: Discharge Order (Routine); Ordered 11/05/21 Ordered By: Kaitlin Houston Admission Data Admit Date/Time: 11/01/21 00:39 Attending Provider: Kaitlin Houston Admit Provider: Leon Marcum Primary Care Provider: PCP,NO Other Providers: Bharathi Rubi Coding Level of Care Code D/C DAY MANAGEMENT >30 MINS Diagnoses COVID-19 U07.1 Acute on chronic systolic heart failure I50.23 Aortic stenosis I35.0 Hyponatremia E87.1 Diabetes E11.9 Hyperlipidemia E78.5 Hypertension I10 Below-knee amputation of left lower extremity S88.112A Paroxysmal A-fib I48.0 Pacemaker Z95.0 [place] (acute kidney injury) N17.9 DVT prophylaxis Z29.9
== END 2021-11-05 16:03 | disposition home or self-care (01) | DRG 177 ==
LOC: ED 20:18 → SUATTDRO 11-01 00:39 → 3N 11-01 00:39

== ENCOUNTER 2021-12-20 15:24 | Inpatient (IN) ==
--- NOTE | 2021-12-20 16:09 | Emergency Department Note ---
Impression & Plan SOB (shortness of breath), Hypokalemia, CHF (congestive heart failure), Anemia, COVID-19 ED Provider Note NAME: YVONNE HODGE AGE: 81 SEX: F : 1940 ARRIVES VIA: Walk-In INFORMANT: [Patient][family] ED PROVIDER(S): [Esvin Colbert MD] CHIEF COMPLAINT: Respiratory problems HISTORY OF PRESENT ILLNESS: The patient is an 81-year-old female who presents to the ER with shortness of breath, especially laying flat. The patient was seen recently in the ED for a left below the knee amputation stump infection. She was placed on Augmentin. She was also found to be COVID-positive with her last ER visit. She was not hypoxic with her last ED visit, she was given albuterol to use as an outpatient. Since discharge, she has become more short of breath. She does carry a history of CHF. There has been no fever, no real coughing. No complaints of chest pain. No vomiting or diarrhea. The family believes the stump is healing well. REVIEW OF SYSTEMS: See HPI for pertinent positives and negatives. A total of ten systems were reviewed and were otherwise negative. PMHx/PSHx: See Below SOCIAL HISTORY: See Below. PHYSICAL EXAM: GENERAL: Patient is in no acute distress. HEENT: No acute trauma, normocephalic atraumatic, mucous membranes moist, no n toni congestion, no scleral icterus. NECK: No stridor, no adenopathy, no meningismus, trachea is midline. LUNGS: A few crackles heard at the left base, no wheezing, no obvious respiratory distress. HEART: 2/6 systolic murmur, regular rate and rhythm. ABDOMEN: Soft, nontender, bowel sounds positive, no peritonitis. EXTREMITIES: No cyanosis, mild to moderate pedal edema on the right. The left below the knee amputation stump is dressed NEUROLOGIC: Oriented x 3, no acute motor or sensory deficits, no focal weakness. SKIN: No rash, no jaundice, no diaphoresis. DIFFERENTIAL DIAGNOSIS: Reactive airway disease, pneumonia, COVID-19, pneumothorax, COPD, CHF, infection, cardiac ischemia, pulmonary embolism, bronchitis, musculoskeletal, gastrointestinal, as well as other pathologies. EMERGENCY DEPARTMENT COURSE/PROCEDURES: ECG: ECG shows a ventricular pacemaker with a rate of 80. There is no concerning ST elevation, no PVCs. The QTC is 562. Continuous Cardiac Monitoring: An order was placed for continuous cardiac monitoring. The monitor shows a rate of 95 with a ventricular pacemaker. MEDICAL DECISION MAKING: There is no leukocytosis. The white count was somewhat low and this has been seen before. The patient was anemic, the patient carries a history of anemia. There was a normal platelet count. INR was elevated at 1.7. Potassium was low at 3. Sodium was somewhat low at 134. Bilirubin was slightly elevated, no other liver enzyme elevation. Troponin was slightly elevated at 39.3, this could be consistent with cardiac injury or strain or potentially mismatch. BNP was quite elevated consistent with fluid overload. Chest film does show cardiomegaly and CHF. Urinalysis shows some contamination. Current COVID test is pending. The patient presents with increasing shortness of breath. She was having a hard time lying flat. She has history of heart failure and appears to be in heart failure today. I do think a hospital stay is warranted. I spoke with the patie nt and clinical case manager. I did speak with the on-call hospitalist. Patient was given IV Lasix, 60 mg, she was given IV and oral potassium. Of note, the patient had tested positive for COVID-19 just 3 days ago. Certainly, the COVID diagnosis could be contributing to her dyspnea. She has been using an albuterol inhaler without significant relief. Past Med/Surg History Medical History CHF (congestive heart failure) Diabetes Hyperlipidemia Hypertension Surgical History (Updated 11/04/21 @ 09:22 by Kasi Carranza) History of left below knee amputation Pacemaker Family History Other No significant family history Social History Smoking Status: Never smoker Second Hand Exposure: No; Hx Alcohol Use: No Hx Substance Use: No Preferred Language: Mohawk Communication Ability: Effective Communication Tools: Other Potline Monitor Required: Yes Beliefs That Will Affect Care: None marital status: Current Living Situation: Family How many Children do You have: 3 Feels Safe at Home: Yes Assistive Devices: Walker and Wheelchair Allergies Allergies Allergy/AdvReac Type Severity Reaction Status Date / Time No Known Allergies Allergy Unverified 10/25/21 21:59 Home Meds Previous Rx's Medication Instructions Recorded apixaban 2.5 mg tablet 2.5 mg PO BID #60 tabs 11/05/21 atorvastatin 20 mg tablet 20 mg PO DAILY #30 tabs 11/05/21 enalapril maleate 10 mg tablet 10 mg PO DAILY #30 tabs 11/05/21 furosemide 40 mg tablet (Lasix) 40 mg PO DAILY #30 tabs 11/05/21 metformin 500 mg tablet 500 mg PO BID #60 tabs 11/05/21 albuterol sulfate 90 mcg/actuation 2 inh inhalation Q6H #18 grams 12/17/21 aerosol inhaler amoxicillin 875 mg-potassium 1 tab PO BID #20 tabs 12/17/21 clavulanate 125 mg tablet Results & Data (ED) Vital Signs Vital Signs - 24 hr 12/20/21 15:26 12/20/21 16:15 12/20/21 16:16 Temperature 36.1 C L Temperature Source Temporal Artery Scan Pulse Rate 95 H Respiratory Rate 14 Respiratory Effort / Characteristics Non-Labored Spontaneous Non-Labored Spontaneous Respiratory Depth Normal Normal Respiratory Pattern Regular Regular Blood Pressure 122/60 Blood Pressure Mean 80 Blood Pressure Position Sitting Pulse Oximetry 95 96 Oxygen Delivery Method Room Air Room Air Room Air Sepsis Recent Fever Within 48 Hours No Sepsis New/Unexplained Change in Mental Status No Sepsis Action Taken by Nursing No Action Required Oxygen Flow Rate - Titration 12/20/21 16:00 12/20/21 17:23 12/20/21 17:30 Temperature Temperature Source Pulse Rate 80 80 80 Respiratory Rate 24 20 20 Respiratory Effort / Characteristics Respiratory Depth Respiratory Pattern Blood Pressure 147/60 H 134/62 131/52 L Blood Pressure Mean 89 86 78 Blood Pressure Position Pulse Oximetry 100 99 100 Oxygen Delivery Method Sepsis Recent Fever Within 48 Hours Sepsis New/Unexplained Change in Mental Status Sepsis Action Taken by Nursing Oxygen Flow Rate - Titration 12/20/21 18:00 12/20/21 19:39 Temperature Temperature Source Pulse Rate 80 Respiratory Rate 14 Respiratory Effort / Characteristics Respiratory Depth Respiratory Pattern Blood Pressure 134/75 Blood Pressure Mean 94 Blood Pressure Position Pulse Oximetry 100 100 Oxygen Delivery Method Room Air Sepsis Recent Fever Within 48 Hours Sepsis New/Unexplained Change in Mental Status Sepsis Action Taken by Nursing Oxygen Flow Rate - Titration 2 Home Medications Current Medication List: was personally reviewed by me Laboratory Data Attestation: I reviewed the patient's lab results. Result diagrams: 12/20/21 17:08 12/20/21 17:08 Lab Results 12/20/21 12/20/21 12/20/21 Range/Units 17:08 17:08 17:08 WBC 4.20 L (4.8-10.8) K/ul RBC 3.91 L (3.93-5.22) M/uL Hgb 10.7 L (12.0-16.0) g/dl Hct 32.8 L (34.1-44.9) % MCV 83.9 (80.0-100.0) fL MCH 27.4 (25.0-34.0) pg MCHC 32.6 (32.0-36.0) g/dL RDW Std Deviation 59.9 H (36.4-46.3) fL RDW Coeff of Edwardo 19.9 H (11.5-14.5) % Plt Count 203 (130-400) K/uL MPV 12.8 H (9.4-12.3) fL Immature Gran % (Auto) 0.5 % Neut % (Auto) 68.4 % Lymph % (Auto) 22.1 % Mclean % (Auto) 8.3 % Eos % (Auto) 0.2 % Baso % (Auto) 0.5 % Neut # (Auto) 2.87 (1.4-6.5) K/uL Lymph # (Auto) 0.93 L (1.2-3.4) K/uL Mclean # (Auto) 0.35 (0.24-0.82) K/uL Eos # (Auto) 0.01 (0-0.50) K/uL Baso # (Auto) 0.02 (0-0.2) K/uL Immature Gran # (Auto) 0.02 (0.00-0.02) K/uL Absolute Nucleated RBC 0.02 H (0-0) K/uL Nucleated RBC % (auto) 0.5 % PT 17.4 H (9.0-12.0) Seconds INR 1.7 H (0.9-1.1) APTT 29.3 (21.0-31.0) Seconds PTT Ratio 1.1 Sodium 134 L (136-145) mmol/L Potassium 3.0 L (3.5-5.1) mmol/L Chloride 97 L (98-107) mmol/L Carbon Dioxide 23 (21-32) mmol/L Anion Gap 14 H (3-11) BUN 24 H (6-23) mg/dl Creatinine 1.12 (0.6-1.2) mg/dl Est Cr Clr Drug Dosing 30.2 ml/min Est GFR ( Amer) 53.7 ml/min Est GFR (Non-Af Amer) 46.4 ml/min BUN/Creatinine Ratio 21.4 H (10-20) Glucose 130 H (70-99(Fasting)) mg/dl Calcium 9.1 (8.5-10.1) mg/dl Magnesium 1.8 (1.7-2.4) mg/dl Total Bilirubin 1.6 H (0.2-1.0) mg/dl AST 29 (13-39) U/L ALT 14 (7-52) U/L Alkaline Phosphatase 101 (34-104) U/L Troponin I High Sens 39.3 H D (0-14) pg/ml B-Natriuretic Peptide (0-100) pg/ml Total Protein 7.6 (6.0-8.3) gm/dl Albumin 3.4 (3.4-5.0) gm/dl Globulin 4.2 H (2.5-4.0) gm/dl Albumin/Globulin Ratio 0.8 L (0.9-2) Urine Color Urine Appearance (Clear) Urine pH (4.5-7.5) Ur Specific [place] (1.000-1.030) Urine Protein (Negative) Urine Glucose (UA) (Negative) Urine Ketones (Negative) Urine Blood (Negative) Urine Nitrite (Negative) Urine Bilirubin (Negative) Urine Urobilinogen (Negative) Ur Leukocyte Esterase (Negative) Urine RBC (0-4) /hpf Urine WBC (0-5) /hpf Ur Epithelial Cells (0-5) /lpf Urine Bacteria (Negative) Hyaline Casts (0-5) /lpf 12/20/21 12/20/21 Range/Units 17:08 17:55 WBC (4.8-10.8) K/ul RBC (3.93-5.22) M/uL Hgb (12.0-16.0) g/dl Hct (34.1-44.9) % MCV (80.0-100.0) fL MCH (25.0-34.0) pg MCHC (32.0-36.0) g/dL RDW Std Deviation (36.4-46.3) fL RDW Coeff of Edwardo (11.5-14.5) % Plt Count (130-400) K/uL MPV (9.4-12.3) fL Immature Gran % (Auto) % Neut % (Auto) % Lymph % (Auto) % Mclean % (Auto) % Eos % (Auto) % Baso % (Auto) % Neut # (Auto) (1.4-6.5) K/uL Lymph # (Auto) (1.2-3.4) K/uL Mclean # (Auto) (0.24-0.82) K/uL Eos # (Auto) (0-0.50) K/uL Baso # (Auto) (0-0.2) K/uL Immature Gran # (Auto) (0.00-0.02) K/uL Absolute Nucleated RBC (0-0) K/uL Nucleated RBC % (auto) % PT (9.0-12.0) Seconds INR (0.9-1.1) APTT (21.0-31.0) Seconds PTT Ratio Sodium (136-145) mmol/L Potassium (3.5-5.1) mmol/L Chloride (98-107) mmol/L Carbon Dioxide (21-32) mmol/L Anion Gap (3-11) BUN (6-23) mg/dl Creatinine (0.6-1.2) mg/dl Est Cr Clr Drug Dosing ml/min Est GFR ( Amer) ml/min Est GFR (Non-Af Amer) ml/min BUN/Creatinine Ratio (10-20) Glucose (70-99(Fasting)) mg/dl Calcium (8.5-10.1) mg/dl Magnesium (1.7-2.4) mg/dl Total Bilirubin (0.2-1.0) mg/dl AST (13-39) U/L ALT (7-52) U/L Alkaline Phosphatase (34-104) U/L Troponin I High Sens (0-14) pg/ml B-Natriuretic Peptide 2665 H (0-100) pg/ml Total Protein (6.0-8.3) gm/dl Albumin (3.4-5.0) gm/dl Globulin (2.5-4.0) gm/dl Albumin/Globulin Ratio (0.9-2) Urine Color Yellow Urine Appearance Clear (Clear) Urine pH 5.0 (4.5-7.5) Ur Specific [place] 1.015 (1.000-1.030) Urine Protein Trace H (Negative) Urine Glucose (UA) Negative (Negative) Urine Ketones Negative (Negative) Urine Blood Trace-intact H (Negative) Urine Nitrite Negative (Negative) Urine Bilirubin Negative (Negative) Urine Urobilinogen Negative (Negative) Ur Leukocyte Esterase Trace H (Negative) Urine RBC 0-4 (0-4) /hpf Urine WBC 10-30 H (0-5) /hpf Ur Epithelial Cells >30 H (0-5) /lpf Urine Bacteria Negative (Negative) Hyaline Casts >30 H (0-5) /lpf Administered Medications Discontinued Medications Furosemide (Furosemide 40 Mg/4 Ml Vial) 60 mg IV NOW STA Stop: 12/20/21 18:15 Last Admin: 12/20/21 18:22 Dose: 60 mg Documented By: MCKENZIE Potassium Chloride (K Jairon / Wtr) 10 meq in 100 mls @ 100 mls/hr IV ONE ONE; Protocol Stop: 12/20/21 19:13 Last Infusion: 12/20/21 19:36 Dose: 0 mls/hr Documented By: Admin: 12/20/21 18:23 Dose: 100 mls/hr Documented By: MCKENZIE Potassium Chloride (Potassium Chloride Crtab 20 Meq Tabcr) 20 meq PO NOW STA Stop: 12/20/21 18:15 Last Admin: 12/20/21 18:23 Dose: 20 meq Documented By: MCKENZIE Imaging Data Radiologist's Impression: Chest X-Ray 12/20/21 15:55 XR chest 1V portable HISTORY: 81 years-old Female Dyspnea acute shortness of breath COMPARISON: Chest radiograph 12/17/2021 TECHNIQUE: Portable AP view of the chest FINDINGS: Cardiac silhouette is enlarged. Left subclavian pacer. Atherosclerosis of the vascular aorta. Pulmonary vascular congestion with interstitial coarsening. No pneumothorax. Trace right and small left pleural effusions with mild left basilar consolidation. Degenerative changes of the shoulders and spine. IMPRESSION: 1. Cardiomegaly with unchanged pulmonary edema. 2. Small left and trace right pleural effusions with mild left basilar consolidation. ACT 112: Negative or not required by law. The above report was generated using voice recognition software. It may contain grammatical, syntax or spelling errors. Electronically signed by: Allen Mcclellan M.D. 12/20/2021 6:13 PM Discharge Plan Visit Data Chief Complaint: Respiratory Problems Stated Complaint: TROUBLES BREATHING ED Provider: Esvin Colbert Discharge Problem: SOB (shortness of breath), Hypokalemia, CHF (congestive heart failure), Anemia, COVID-19 Patient Disposition: Admitted As Inpatient Condition: Fair Forms Stand Alone Forms: [employer] Prescriptions Prescriptions: No Action enalapril maleate 10 mg tablet 10 mg PO DAILY Qty: 30 0RF furosemide [Lasix] 40 mg tablet 40 mg PO DAILY Qty: 30 0RF metformin 500 mg Tablet 500 mg PO BID Qty: 60 0RF atorvastatin 20 mg Tablet 20 mg PO DAILY Qty: 30 0RF apixaban 2.5 mg tablet 2.5 mg PO BID Qty: 60 0RF amoxicillin-pot clavulanate 875-125 mg tablet 1 tab PO BID Qty: 20 0RF albuterol sulfate 90 mcg/actuation HFA aerosol inhaler 2 inh inhalation Q6H Qty: 18 2RF Referrals Referrals: PCP,NO [Primary Care Provider] -
[2021-12-20 17:30] LABS: Hematocrit (blood only) 32.8 % (34.1-44.9); Hemoglobin 10.7 g/dl (12.0-16.0); Mean Corpuscular Hemoglobin 27.4 pg (25.0-34.0); Mean Corpuscular Hgb Conc 32.6 g/dL (32.0-36.0); Mean Corpuscular Volume 83.9 fL (80.0-100.0); Nucleated RBC # (auto) 0.02 K/uL (0-0); Nucleated RBC % (auto) 0.5 %; RDW Coefficient of Variation 19.9 % (11.5-14.5); RDW Standard Deviation 59.9 fL (36.4-46.3); Red Blood Count 3.91 M/uL (3.93-5.22)
[2021-12-20 17:49] LABS: Basophils # (auto) 0.02 K/uL (0-0.2); Basophils % (auto) 0.5 %; Eosinophils # (auto) 0.01 K/uL (0-0.50); Eosinophils % (auto) 0.2 %; Immature Granulocytes # (auto) 0.02 K/uL (0.00-0.02); Immature Granulocytes % (auto) 0.5 %; Lymphocytes # (auto) 0.93 K/uL (1.2-3.4); Lymphocytes % (auto) 22.1 %; Mean Platelet Volume 12.8 fL (9.4-12.3); Monocytes # (auto) 0.35 K/uL (0.24-0.82); Monocytes % (auto) 8.3 %; Neutrophils # (auto) 2.87 K/uL (1.4-6.5); Neutrophils % (auto) 68.4 %; Platelet Count 203 K/uL (130-400)
[2021-12-20 17:58] LABS: Albumin Globulin Ratio 0.8 (0.9-2); Albumin Level 3.4 gm/dl (3.4-5.0); BUN Creatinine Ratio 21.4 (10-20); Bilirubin,Total 1.6 mg/dl (0.2-1.0); Calcium 9.1 mg/dl (8.5-10.1); Creatinine Clr Calc Pharmacy 30.2 ml/min; Est GFR (African American) 53.7 ml/min; Est GFR (Non-African American) 46.4 ml/min; Globulin 4.2 gm/dl (2.5-4.0); Magnesium 1.8 mg/dl (1.7-2.4); Total Protein 7.6 gm/dl (6.0-8.3)
[2021-12-20 18:01] LABS: INR 1.7 (0.9-1.1); Partial Thromboplastin Ratio 1.1; Partial Thromboplastin Time 29.3 Seconds (21.0-31.0); Prothrombin Time 17.4 Seconds (9.0-12.0); Troponin I High Sensitivity 39.3 pg/ml (0-14)
[2021-12-20 18:08] LABS: Appearance Urine Clear (Clear); Bilirubin Urine Negative (Negative); Blood Urine Trace-intact (Negative); Color Urine Yellow; Glucose Urine UA Negative (Negative); Ketones Urine Negative (Negative); Leukocyte Esterase Urine Trace (Negative); Nitrite Urine Negative (Negative); Protein Urine Trace (Negative); Specific Gravity Urine 1.015 (1.000-1.030); Urobilinogen Urine Negative (Negative)
[2021-12-20] MEDS ORDERED: POTASSIUM CHLORIDE CRTAB 20 MEQ TABCR PO STA (18:14)
[2021-12-20] MEDS ORDERED: FUROSEMIDE 40 MG/4 ML VIAL IV STA (18:14)
[2021-12-20] MEDS ORDERED: POTASSIUM CHLORIDE / WTR 10 MEQ/100 ML PLCT IV ONE (18:14)
--- NOTE | 2021-12-20 18:14 | XRay Report ---
XR chest 1V portable HISTORY: 81 years-old Female Dyspnea acute shortness of breath COMPARISON: Chest radiograph 12/17/2021 TECHNIQUE: Portable AP view of the chest FINDINGS: Cardiac silhouette is enlarged. Left subclavian pacer. Atherosclerosis of the vascular aorta. Pulmona ry vascular congestion with interstitial coarsening. No pneumothorax. Trace right and small left pleu ral effusions with mild left basilar consolidation. Degenerative changes of the shoulders and spine. IMPRESSION: 1. Cardiomegaly with unchanged pulmonary edema. 2. Small left and trace right pleural effusions with mild left basilar consolidation. ACT 112: Negative or not required by law. The above report was generated using voice recognition software. It may contain grammatical, syntax o r spelling errors. Electronically signed by: Allen Mcclellan M.D. 12/20/2021 6:13 PM
[2021-12-20 18:17] LABS: Bacteria Urine Negative (Negative); Epithelial Cell Urine >30 /lpf (0-5); Hyaline Casts Urine >30 /lpf (0-5); RBC Urine 0-4 /hpf (0-4)
--- NOTE | 2021-12-20 19:24 | History & Physical Report ---
Date of Service December 20, 2021 Assessment & Plan (1) CHF exacerbation: Plan: -Admit to med tele -Patient is currently afebrile, hemodynamically stable, and stable on RA -Patient is currently on O2 at 2L NC for comfort, patient remained stable on RA during my examination -Patient has known HFpEF and was noted to be SOB on 12/17/21, appears volume overloaded on exam, CXR showing volume overload, BNP greater than 2000 -Normally on 40 mg PO lasix at home, given 60 mg IV in the ED, will continue with 40 mg IV BID for now, will give a dose tonight -Monitor intake and output -Monitor on tele and continuous pulse ox, prn O2 for SpO2 less than 95% -Incentive spirometry and prn albuterol ordered -AM CBC, monitor BMP and mag q12h for now while on IV lasix (2) COVID-19: Plan: -Noted to be covid positive on her ED visit on 12/17 -Currently stable on RA, only on O2 at this time for comfort. For this reason will hold medical therapy -If patient would become hypoxic would start dexamethasone and consider remdesivir (3) Elevated troponin: Plan: -Noted to be 39.3 in the ED -No chest pain or ECG changes today -Likely due to demand and CHF exacerbation -Will repeat another high sensitivity troponin at 2100 tonight to ensure it plateaus, if significant increase would re-evaluate patient and repeat ECG (4) Wound infection: Plan: -Initially came to the ED on 12/17 for concerns of left BKA site infection, was started on Augmentin -Patient and family think there has been a slight improvement since starting Augmentin -Patient is afebrile and without leukocytosis -Continue Augmentin and consulted Wound Care nurse for evaluation (5) Hypokalemia: Plan: -Noted to be 3.0 today, Mag WNL -Likely due to lasix use -Was given 20 mwq PO and 10 meq IV in the ED -Monitor electrolyte levels on q12h BMP and mag and replete as needed (6) Paroxysmal A-fib: Plan: -Continue eliquis -Not on beta david, currently rate controlled (7) Diabetes: Plan: -On metformin at home, hold for now -Will start patient on Glargine 5 units BID, correction factor of 85, and carb ratio of 29, adjust as needed (8) Hyperlipidemia: Plan: -continue atorvastatin (9) Hypertension: Plan: -Continue enalapril Plan The patient was discussed with Dr. 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 Per chart review, the patient was seen in the [facility] ED on 12/17/21 for increased erythema, pain, and swelling at her BKA site. During that visit her family noted concern for possible CHF exacerbation as she had been SOB at that time. Admission was offered to the patient at that time but she refused and was discharged home with a course of Augmentin for her BKA site. Of note, the patient tested positive for Covid during her ED visit on 12/17. In the ED today the patient was found to be afebrile, hemodynamically stable, and stable on room air. Labs were significant for a potassium of 3.0, total bili of 1.6, high sensitivity troponin of 39.3, BNP of 2665. Chest xray showed cardiomegaly with unchanged pulmonary edema and small left with trace right pleural effusions. In the ED the patient was given 10 meq IV KCL, 40 meq PO KCL, and 60 mg IV lasix. At the time of the exam the patient was sitting in bed in no acute distress with her daughter and at bedside. The patient is Amharic Speaking but her Daughter translated during my exam. They state that since leaving the ED on 12/17/21 the patient's shortness of breath and swelling has progressed. The patient is unable to lay flat or walk without feeling short of breath. Her daughter feels as though her right leg continues to get more swollen but thinks her left BKA site has started to improve since starting the Augmentin. When asked, the patient continues to take her 40 mg PO lasix daily but it has not been helping. She has a non-productive cough which she does not have at baseline. She has been using her at home albuterol inhaler for her SOB as well but it has much provided relief. The patient is currently on 2L O2 at the start of my exam, however, her nurse explained that she was only placed on it for comfort. I turned her O2 off during my exam and she remained above 95% on RA throughout. She denies current fever, chills, headache, chest pain, abdominal pain, nausea, vomiting, diarrhea, and recent falls. Allergies Allergy/AdvReac Type Severity Reaction Status Date / Time No Known Allergies Allergy Unverified 10/25/21 21:59 Home Medications Medication Instructions Recorded Confirmed Type apixaban 2.5 mg tablet 2.5 mg PO BID #60 tabs 11/05/21 12/20/21 Rx atorvastatin 20 mg tablet 20 mg PO DAILY #30 tabs 11/05/21 12/20/21 Rx enalapril maleate 10 mg tablet 10 mg PO DAILY #30 tabs 11/05/21 12/20/21 Rx metformin 500 mg tablet 500 mg PO BID #60 tabs 11/05/21 12/20/21 Rx albuterol sulfate 90 mcg/actuation 2 inh inhalation Q6H #18 grams 12/17/21 12/20/21 Rx aerosol inhaler amoxicillin 875 mg-potassium 1 tab PO BID #20 tabs 12/17/21 12/20/21 Rx clavulanate 125 mg tablet furosemide 40 mg tablet (Lasix) 40 mg PO DAILY #30 tabs 12/23/21 Rx potassium chloride 20 mEq oral 20 meq PO DAILY #30 ea 12/23/21 Rx packet Past Med/Surg History Medical History CHF (congestive heart failure) Diabetes Hyperlipidemia Hypertension Surgical History History of left below knee amputation Pacemaker Family History Other No significant family history Social History Smoking Status: Former smoker Second Hand Exposure: No; Hx Alcohol Use: No Hx Substance Use: No Preferred Language: Amharic Communication Ability: Impaired Communication Ability Comment: Translater Ipad at bedside Communication Tools: IPad Medical Assistant Float Required: Yes Beliefs That Will Affect Care: None and Cultural marital status: Current Living Situation: Family How many Children do You have: 3 Feels Safe at Home: Yes Assistive Devices: Walker and Wheelchair Review of Systems Review of Systems: Denies current fever, chills, headache, changes in vision, hearing, taste, and smell, chest pain, abdominal pain, nausea, vomiting, diarrhea, hematemesis, melena, dysuria, hematuria, and recent falls. All systems have been reviewed and are otherwise negative. Physical Exam Physical Exam: Physical Exam: General: In no acute distress, stated age, chronically ill-appearing HEENT: Currently on 2L NC,Normocephalic, atraumatic, no scleral icterus, pupils around round, symmetrical, and reactive to light, moist mucus membranes, trachea midline, no thyromegaly; significant JVD Chest/Pulm: No respiratory distress, symmetrical chest expansion, decreased breath sounds in the BL lower lung álvarez, expiratory wheezing noted in the upper lung álvarez Cardiac: RRR, 4/6 systolic murmur noted, loudest in the aortic area with radiation to the carotids Abdomen: Negative for ascites and bruising, normoactive bowel sounds, soft, non-tender to palpation throughout Musculoskeletal: Intake ROM in the BL upper extremitas, patient is S/P left BKA with procedure site currently wrapped and without signs of drainage, RLE without signs of acute trauma Extremities: radial pulses are symmetrical, regular, and intact, patient's RLE with +2 pitting edema, RLE is cool but without pain, intact sensation, and cap-refill less than 3 seconds Skin: as described above Neuro: Alert and oriented to person, place, month, and year, no focal defects, CN II-XII tested and intact, finger to nose test negative, no tremors noted Psych: No acute distress, calm and cooperative during the exam Results & Data Results & Data ([facility]) Vital Signs (Past 12 Hours) Vital Signs Temp Pulse Resp BP Pulse Ox O2 Del Method 12/20/21 18:00 80 14 134/75 100 12/20/21 17:30 80 20 131/52 L 100 12/20/21 17:23 80 20 134/62 99 12/20/21 16:00 80 24 147/60 H 100 12/20/21 16:16 96 Room Air 09/24/22 16:15 Room Air 12/20/21 15:26 36.1 C L 95 H 14 122/60 95 Room Air Laboratory Results Abnormal lab results 12/20/21 12/20/21 12/20/21 Range/Units 17:08 17:08 17:08 WBC 4.20 L (4.8-10.8) K/ul RBC 3.91 L (3.93-5.22) M/uL Hgb 10.7 L (12.0-16.0) g/dl Hct 32.8 L (34.1-44.9) % RDW Std Deviation 59.9 H (36.4-46.3) fL RDW Coeff of Edwardo 19.9 H (11.5-14.5) % MPV 12.8 H (9.4-12.3) fL Lymph # (Auto) 0.93 L (1.2-3.4) K/uL Absolute Nucleated RBC 0.02 H (0-0) K/uL PT 17.4 H (9.0-12.0) Seconds INR 1.7 H (0.9-1.1) Sodium 134 L (136-145) mmol/L Potassium 3.0 L (3.5-5.1) mmol/L Chloride 97 L (98-107) mmol/L Anion Gap 14 H (3-11) BUN 24 H (6-23) mg/dl BUN/Creatinine Ratio 21.4 H (10-20) Glucose 130 H (70-99(Fasting)) mg/dl Total Bilirubin 1.6 H (0.2-1.0) mg/dl Troponin I High Sens 39.3 H D (0-14) pg/ml B-Natriuretic Peptide (0-100) pg/ml Globulin 4.2 H (2.5-4.0) gm/dl Albumin/Globulin Ratio 0.8 L (0.9-2) Urine Protein (Negative) Urine Blood (Negative) Ur Leukocyte Esterase (Negative) Urine WBC (0-5) /hpf Ur Epithelial Cells (0-5) /lpf Hyaline Casts (0-5) /lpf 12/20/21 12/20/21 Range/Units 17:08 17:55 WBC (4.8-10.8) K/ul RBC (3.93-5.22) M/uL Hgb (12.0-16.0) g/dl Hct (34.1-44.9) % RDW Std Deviation (36.4-46.3) fL RDW Coeff of Edwardo (11.5-14.5) % MPV (9.4-12.3) fL Lymph # (Auto) (1.2-3.4) K/uL Absolute Nucleated RBC (0-0) K/uL PT (9.0-12.0) Seconds INR (0.9-1.1) Sodium (136-145) mmol/L Potassium (3.5-5.1) mmol/L Chloride (98-107) mmol/L Anion Gap (3-11) BUN (6-23) mg/dl BUN/Creatinine Ratio (10-20) Glucose (70-99(Fasting)) mg/dl Total Bilirubin (0.2-1.0) mg/dl Troponin I High Sens (0-14) pg/ml B-Natriuretic Peptide 2665 H (0-100) pg/ml Globulin (2.5-4.0) gm/dl Albumin/Globulin Ratio (0.9-2) Urine Protein Trace H (Negative) Urine Blood Trace-intact H (Negative) Ur Leukocyte Esterase Trace H (Negative) Urine WBC 10-30 H (0-5) /hpf Ur Epithelial Cells >30 H (0-5) /lpf Hyaline Casts >30 H (0-5) /lpf Diagnostic Findings Chest X-Ray 12/20/21 15:55 XR chest 1V portable HISTORY: 81 years-old Female Dyspnea acute shortness of breath COMPARISON: Chest radiograph 12/17/2021 TECHNIQUE: Portable AP view of the chest FINDINGS: Cardiac silhouette is enlarged. Left subclavian pacer. Atherosclerosis of the vascular aorta. Pulmonary vascular congestion with interstitial coarsening. No pneumothorax. Trace right and small left pleural effusions with mild left basilar consolidation. Degenerative changes of the shoulders and spine. IMPRESSION: 1. Cardiomegaly with unchanged pulmonary edema. 2. Small left and trace right pleural effusions with mild left basilar consolidation. ACT 112: Negative or not required by law. The above report was generated using voice recognition software. It may contain grammatical, syntax or spelling errors. Electronically signed by: Allen Mcclellan M.D. 12/20/2021 6:13 PM ECG Additional Comments: Ventricular paced rhythm, no acute st segment or t wave changes noted Code Status & VTE Plan Code Status Limited code: Patient does NOT want CPR but would want intubation if needed VTE Prophylaxis Plan VTE Prophylaxis will be ordered: Yes Supervising Physician Co-Signing Physician Notes Patient seen and examined at bedside. During face to face encounter obtained a history and physical examination. I reviewed above note and agree with it. Plan of care discussed with patient and APC Peno. Will admit for CHF and will place on IV lasix PG Care Time/CCT Total # of Minutes Spent Total Time Spent with Patient: Total time spent is greater than 50% in coordination of care (as documented) at patient's floor/unit and/or counseling patient: Coding [place] [address] Initial Inpt Care Lvl 3 Patient Type Established Medical Decision Making High Complexity Diagnoses CHF exacerbation I50.9 COVID-19 U07.1 Elevated troponin R77.8 Wound infection T14.8XXA; L08.9 Hypokalemia E87.6 Paroxysmal A-fib I48.0 Diabetes E11.9 Hyperlipidemia E78.5 Hypertension I10
[2021-12-21] MEDS ORDERED: GLUCAGON FOR INJ 1 MG VIAL SQ PRN (01:00)
[2021-12-21] MEDS ORDERED: GLUCOSE 40% GEL 15 GM TUBE PO PRN (01:00)
[2021-12-21] MEDS ORDERED: GLUCOSE 10 TAB/TUBE PO PRN (01:00)
[2021-12-21] MEDS ORDERED: CARBOHYDRATES FOR HYPOGLYCEMIA PO PRN (01:00)
[2021-12-21] MEDS ORDERED: DEXTROSE 50% 50 ML SYRINGE IV PRN (01:00)
[2021-12-21] MEDS: INSULIN ASPART PER UNIT SC SCH ×5 (01:47→20:21)
[2021-12-21] MEDS: LANTUS PER UNIT CHARGE SQ SCH ×3 (01:52→20:38)
[2021-12-21] MEDS: ALBUTEROL 0.5% NEB SOLN 2.5 MG/0.5 ML VIAL NEB SCH ×4 (01:53→19:39)
[2021-12-21] MEDS: FUROSEMIDE 40 MG/4 ML VIAL IV SCH ×3 (02:01→17:05)
[2021-12-21] MEDS: APIXABAN 2.5 MG TAB PO SCH ×3 (02:02→20:12)
[2021-12-21 02:10] LABS: BUN Creatinine Ratio 21.5 (10-20); Calcium 8.9 mg/dl (8.5-10.1); Creatinine Clr Calc Pharmacy 31.6 ml/min; Est GFR (African American) 56.8 ml/min; Magnesium 1.7 mg/dl (1.7-2.4); Potassium 3.6 mmol/L (3.5-5.1); Troponin I High Sensitivity 35.3 pg/ml (0-14)
[2021-12-21] MEDS: ACETAMINOPHEN 325 MG TAB PO PRN ×2 (05:41→22:29)
[2021-12-21 06:12] LABS: Hematocrit (blood only) 32.5 % (34.1-44.9); Hemoglobin 10.5 g/dl (12.0-16.0); Mean Corpuscular Hemoglobin 27.4 pg (25.0-34.0); Mean Corpuscular Hgb Conc 32.3 g/dL (32.0-36.0); Mean Corpuscular Volume 84.9 fL (80.0-100.0); Nucleated RBC # (auto) 0.02 K/uL (0-0); Nucleated RBC % (auto) 0.4 %; RDW Coefficient of Variation 20.2 % (11.5-14.5); RDW Standard Deviation 61.6 fL (36.4-46.3); Red Blood Count 3.83 M/uL (3.93-5.22); White Blood Count 5.05 K/ul (4.8-10.8)
[2021-12-21 06:30] LABS: Mean Platelet Volume 13.1 fL (9.4-12.3); Platelet Count 177 K/uL (130-400)
[2021-12-21] MEDS: AMOXICILLIN/CLAVULANATE 875 MG TAB PO SCH ×2 (08:05→17:06)
[2021-12-21] MEDS: ENALAPRIL MALEATE 10 MG TAB PO SCH (08:05)
[2021-12-21] MEDS: ATORVASTATIN 20 MG TAB PO SCH (08:05)
[2021-12-21] MEDS: POTASSIUM CHLORIDE 10 MEQ TABCR PO SCH ×3 (11:19→21:21)
--- NOTE | 2021-12-21 12:44 | Hospitalist Progress Note ---
Date of Service December 21, 2021 Assessment & Plan (1) CHF exacerbation: Plan: Appears to be combined systolic and diastolic. Most recent cardiac echo revealed ejection fraction of 40%. Continue parenteral Lasix twice daily. Potassium supplement has been ordered. Monitor urine output and daily lab studies. (2) COVID-19: Plan: Currently asymptomatic. Will follow. (3) Elevated troponin: Plan: No evidence of acute myocardial infarction. Telemetry. Serial labs (4) Wound infection: Plan: Involving left BKA stump. She is on Augmentin as an outpatient. Continue local care. (5) Hypokalemia: Plan: Oral potassium supplementation. Serial labs. (6) Paroxysmal A-fib: Plan: Telemetry. Continue eliquis . (7) Diabetes: Plan: Type II. Holding metformin for now. ADA diet. Sliding scale coverage as needed. Basal twice daily insulin has been ordered temporarily (8) Hyperlipidemia: Plan: Heart healthy diet. Continue atorvastatin (9) Hypertension: Plan: Treated and controlled with enalapril Plan Anticipate eventual discharge to home Admission and Anticipated Discharge Date Admission Date: December 20, 2021 Subjective The patient is awake and alert. Her primary complaint is constipation. MiraLAX has been ordered. Her most recent cardiac echo was reviewed. Ejection fraction is 40%. She appears to have combined systolic and diastolic CHF. She is on parenteral Lasix twice daily. We will supplement potassium anticipating diuretic losses. Serial labs ordered. MiraLAX also ordered. Review of Systems Review of Systems: Constitutional-no fever or chills ENT-no blurred vision, no double vision, no epistaxis, no sore throat Respiratory-no cough, no wheezing. Dyspnea on exertion and orthopnea noted Cardiac-no palpitations, no chest pain, no syncope GI-no nausea, vomiting, diarrhea, melena, hematochezia -no urinary retention, no urinary incontinence, no dysuria, no hematuria Musculoskeletal-no joint pain, no muscle tenderness Skin-no bruising, no rashes, no pruritus Neuro-no isolated weakness, no paresthesia, no weakness Psych-no depression, no anxiety Physical Exam Physical Exam: General-alert and oriented x3, no fevers, no chills HEENT-head atraumatic and normocephalic, pupils equal and reactive to light, extraocular muscles intact Neck-no lymphadenopathy or thyromegaly, trachea midline Chest-faint bibasilar inspiratory rales. No wheezing. No respiratory distress Cardiac-regular rate and rhythm, normal S1 and S2 Abdomen-normal bowel sounds, nontender, no hepatosplenomegaly Extremities-left BKA status. Left leg stump is heavily bandaged. No edema noted in the right lower extremity Neuro-cranial nerves II through XII intact, motor and sensory function within normal limits, strength symmetrical , no focal deficits Psych-flat affect Results & Data Results & Data ([facility]) Vital Signs (Past 12 Hours) Vital Signs Temp Pulse Pulse Pulse Resp BP Pulse Ox 12/21/21 07:45 36.2 C L 80 18 134/70 100 12/21/21 08:00 80 12/21/21 08:00 12/21/21 07:58 80 20 98 12/21/21 01:53 80 20 100 12/21/21 01:38 80 12/21/21 01:04 12/21/21 01:04 36.4 C L 80 20 128/65 99 12/21/21 00:42 O2 Del Method O2 Flow Rate 12/21/21 07:45 Nasal Cannula 2 12/21/21 08:00 12/21/21 08:00 Nasal Cannula 2 12/21/21 07:58 Nasal Cannula 2 12/21/21 01:53 Nasal Cannula 2 12/21/21 01:38 12/21/21 01:04 Nasal Cannula 2 12/21/21 01:04 Nasal Cannula 2 12/21/21 00:42 Room Air Laboratory Results Abnormal lab results 12/20/21 12/20/21 12/20/21 Range/Units 17:08 17:08 17:08 WBC 4.20 L (4.8-10.8) K/ul RBC 3.91 L (3.93-5.22) M/uL Hgb 10.7 L (12.0-16.0) g/dl Hct 32.8 L (34.1-44.9) % RDW Std Deviation 59.9 H (36.4-46.3) fL RDW Coeff of Edwardo 19.9 H (11.5-14.5) % MPV 12.8 H (9.4-12.3) fL Lymph # (Auto) 0.93 L (1.2-3.4) K/uL Absolute Nucleated RBC 0.02 H (0-0) K/uL PT 17.4 H (9.0-12.0) Seconds INR 1.7 H (0.9-1.1) Sodium 134 L (136-145) mmol/L Potassium 3.0 L (3.5-5.1) mmol/L Chloride 97 L (98-107) mmol/L Anion Gap 14 H (3-11) BUN 24 H (6-23) mg/dl BUN/Creatinine Ratio 21.4 H (10-20) Glucose 130 H (70-99(Fasting)) mg/dl POC Glucose (70-99) mg/dl Total Bilirubin 1.6 H (0.2-1.0) mg/dl Troponin I High Sens 39.3 H D (0-14) pg/ml B-Natriuretic Peptide (0-100) pg/ml Globulin 4.2 H (2.5-4.0) gm/dl Albumin/Globulin Ratio 0.8 L (0.9-2) Urine Protein (Negative) Urine Blood (Negative) Ur Leukocyte Esterase (Negative) Urine WBC (0-5) /hpf Ur Epithelial Cells (0-5) /lpf Hyaline Casts (0-5) /lpf 12/20/21 12/20/21 12/21/21 Range/Units 17:08 17:55 01:26 WBC (4.8-10.8) K/ul RBC (3.93-5.22) M/uL Hgb (12.0-16.0) g/dl Hct (34.1-44.9) % RDW Std Deviation (36.4-46.3) fL RDW Coeff of Edwardo (11.5-14.5) % MPV (9.4-12.3) fL Lymph # (Auto) (1.2-3.4) K/uL Absolute Nucleated RBC (0-0) K/uL PT (9.0-12.0) Seconds INR (0.9-1.1) Sodium (136-145) mmol/L Potassium (3.5-5.1) mmol/L Chloride (98-107) mmol/L Anion Gap 15 H (3-11) BUN (6-23) mg/dl BUN/Creatinine Ratio 21.5 H (10-20) Glucose 128 H (70-99(Fasting)) mg/dl POC Glucose (70-99) mg/dl Total Bilirubin (0.2-1.0) mg/dl Troponin I High Sens 35.3 H (0-14) pg/ml B-Natriuretic Peptide 2665 H (0-100) pg/ml Globulin (2.5-4.0) gm/dl Albumin/Globulin Ratio (0.9-2) Urine Protein Trace H (Negative) Urine Blood Trace-intact H (Negative) Ur Leukocyte Esterase Trace H (Negative) Urine WBC 10-30 H (0-5) /hpf Ur Epithelial Cells >30 H (0-5) /lpf Hyaline Casts >30 H (0-5) /lpf 12/21/21 12/21/21 12/21/21 Range/Units 01:40 05:32 07:55 WBC (4.8-10.8) K/ul RBC 3.83 L (3.93-5.22) M/uL Hgb 10.5 L (12.0-16.0) g/dl Hct 32.5 L (34.1-44.9) % RDW Std Deviation 61.6 H (36.4-46.3) fL RDW Coeff of Edwardo 20.2 H (11.5-14.5) % MPV 13.1 H (9.4-12.3) fL Lymph # (Auto) (1.2-3.4) K/uL Absolute Nucleated RBC 0.02 H (0-0) K/uL PT (9.0-12.0) Seconds INR (0.9-1.1) Sodium (136-145) mmol/L Potassium (3.5-5.1) mmol/L Chloride (98-107) mmol/L Anion Gap (3-11) BUN (6-23) mg/dl BUN/Creatinine Ratio (10-20) Glucose (70-99(Fasting)) mg/dl POC Glucose 120 H 126 H (70-99) mg/dl Total Bilirubin (0.2-1.0) mg/dl Troponin I High Sens (0-14) pg/ml B-Natriuretic Peptide (0-100) pg/ml Globulin (2.5-4.0) gm/dl Albumin/Globulin Ratio (0.9-2) Urine Protein (Negative) Urine Blood (Negative) Ur Leukocyte Esterase (Negative) Urine WBC (0-5) /hpf Ur Epithelial Cells (0-5) /lpf Hyaline Casts (0-5) /lpf 12/21/21 Range/Units 12:16 WBC (4.8-10.8) K/ul RBC (3.93-5.22) M/uL Hgb (12.0-16.0) g/dl Hct (34.1-44.9) % RDW Std Deviation (36.4-46.3) fL RDW Coeff of Edwardo (11.5-14.5) % MPV (9.4-12.3) fL Lymph # (Auto) (1.2-3.4) K/uL Absolute Nucleated RBC (0-0) K/uL PT (9.0-12.0) Seconds INR (0.9-1.1) Sodium (136-145) mmol/L Potassium (3.5-5.1) mmol/L Chloride (98-107) mmol/L Anion Gap (3-11) BUN (6-23) mg/dl BUN/Creatinine Ratio (10-20) Glucose (70-99(Fasting)) mg/dl POC Glucose 103 H (70-99) mg/dl Total Bilirubin (0.2-1.0) mg/dl Troponin I High Sens (0-14) pg/ml B-Natriuretic Peptide (0-100) pg/ml Globulin (2.5-4.0) gm/dl Albumin/Globulin Ratio (0.9-2) Urine Protein (Negative) Urine Blood (Negative) Ur Leukocyte Esterase (Negative) Urine WBC (0-5) /hpf Ur Epithelial Cells (0-5) /lpf Hyaline Casts (0-5) /lpf PG Care Time/CCT Total # of Minutes Spent Total Time Spent with Patient: Total time spent is greater than 50% in coordination of care (as documented) at patient's floor/unit and/or counseling patient: Coding Level of Care Code 59505 Subseq Hosp Care Lvl 3 Diagnoses CHF exacerbation I50.9 COVID-19 U07.1 Elevated troponin R77.8 Wound infection T14.8XXA; L08.9 Hypokalemia E87.6 Paroxysmal A-fib I48.0 Diabetes E11.9 Hyperlipidemia E78.5 Hypertension I10
--- NOTE | 2021-12-21 19:17 | Electrocardiogram Report ---
Test Reason : Blood Pressure : / mmHG Vent. Rate : 080 BPM Atrial Rate : 079 BPM P-R Int : 000 ms QRS Dur : 172 ms QT Int : 488 ms P-R-T Axes : 000 -72 097 degrees QTc Int : 562 ms Ventricular-paced rhythm Underlying atrial fibrillation Abnormal ECG When compared with ECG of 31-OCT-2021 21:38, No significant change was found Confirmed by Rakesh Russell ([id number]) on 12/21/2021 7:17:20 PM Referred By: REFERRED SELF Confirmed By:Rakesh Russell
--- NOTE | 2021-12-21 21:28 | Electrocardiogram Report ---
Test Reason : Blood Pressure : / mmHG Vent. Rate : 080 BPM Atrial Rate : 084 BPM P-R Int : 000 ms QRS Dur : 164 ms QT Int : 472 ms P-R-T Axes : 000 -71 097 degrees QTc Int : 544 ms Ventricular-paced rhythm Abnormal ECG When compared with ECG of 20-DEC-2021 15:42, (unconfirmed) No significant change was found Confirmed by Rakesh Russell ([id number]) on 12/21/2021 9:27:58 PM Referred By: REFERRED SELF Confirmed By:Rakesh Russell
[2021-12-22] MEDS: ALBUTEROL 0.5% NEB SOLN 2.5 MG/0.5 ML VIAL NEB SCH ×4 (00:05→20:32)
[2021-12-22] MEDS: ENALAPRIL MALEATE 10 MG TAB PO SCH (07:34)
[2021-12-22] MEDS: ATORVASTATIN 20 MG TAB PO SCH (07:34)
[2021-12-22] MEDS: APIXABAN 2.5 MG TAB PO SCH ×2 (07:34→21:03)
[2021-12-22] MEDS: AMOXICILLIN/CLAVULANATE 875 MG TAB PO SCH (07:34)
[2021-12-22] MEDS: ACETAMINOPHEN 325 MG TAB PO PRN ×2 (07:34→21:26)
[2021-12-22] MEDS: INSULIN ASPART PER UNIT SC SCH ×4 (07:35→21:10)
[2021-12-22] MEDS: POLYETHYLENE (MIRALAX) 17 GM PACK PO SCH (07:35)
[2021-12-22] MEDS: POTASSIUM CHLORIDE 10 MEQ TABCR PO SCH (07:35)
[2021-12-22] MEDS: FUROSEMIDE 40 MG/4 ML VIAL IV SCH (07:35)
[2021-12-22 08:12] LABS: BUN Creatinine Ratio 22.3 (10-20); Creatinine Clr Calc Pharmacy 26.4 ml/min; Est GFR (African American) 48.9 ml/min; Est GFR (Non-African American) 42.2 ml/min; Potassium 2.9 mmol/L (3.5-5.1)
[2021-12-22] MEDS: LANTUS PER UNIT CHARGE SQ SCH ×2 (08:50→21:22)
[2021-12-22] MEDS ORDERED: POTASSIUM CHLORIDE CRTAB 20 MEQ TABCR PO STA (12:44)
--- NOTE | 2021-12-22 16:10 | Hospitalist Progress Note ---
Date of Service December 22, 2021 Assessment & Plan (1) CHF exacerbation: Plan: Appears to be combined systolic and diastolic. Most recent cardiac echo revealed ejection fraction of 40%. Continue parenteral Lasix twice daily. Potassium supplement has been ordered. Monitor urine output and daily lab studies. creatinine increased on 12/22 will switch lasix to daily. recheck bnp in am. hypokalemia replaced. (2) COVID-19: Plan: Currently asymptomatic. Will follow. (3) Elevated troponin: Plan: No evidence of acute myocardial infarction. Telemetry. Serial labs (4) Wound infection: Plan: Involving left BKA stump. She is on Augmentin as an outpatient. Continue local care. (5) Hypokalemia: Plan: Oral potassium supplementation. Serial labs. (6) Paroxysmal A-fib: Plan: Telemetry. Continue eliquis . (7) Diabetes: Plan: Type II. Holding metformin for now. ADA diet. Sliding scale coverage as needed. Basal twice daily insulin has been ordered temporarily (8) Hyperlipidemia: Plan: Heart healthy diet. Continue atorvastatin (9) Hypertension: Plan: Treated and controlled with enalapril Plan Anticipate eventual discharge to home Admission and Anticipated Discharge Date Admission Date: December 20, 2021 Subjective Patient reports feeling well. She has no new complaints. She reports not tolerating the potassium pills, will try powder. potassium. Review of Systems Review of Systems: All systems reviewed & are unremarkable except as noted in HPI & below Physical Exam Physical Exam: General-alert and oriented x3, no fevers, no chills HEENT-head atraumatic and normocephalic, pupils equal and reactive to light, extraocular muscles intact Neck-no lymphadenopathy or thyromegaly, trachea midline Chest-faint bibasilar inspiratory rales. No wheezing. No respiratory distress Cardiac-regular rate and rhythm, normal S1 and S2 Abdomen-normal bowel sounds, nontender, no hepatosplenomegaly Extremities-left BKA status. Left leg stump is heavily bandaged. No edema noted in the right lower extremity Neuro-cranial nerves II through XII intact, motor and sensory function within normal limits, strength symmetrical , no focal deficits Psych-flat affect Results & Data Results & Data ([facility]) Vital Signs (Past 12 Hours) Vital Signs Temp Pulse Resp BP Pulse Ox O2 Del Method FiO2 12/22/21 15:21 36.3 C L 77 17 104/64 94 Room Air 12/22/21 12:54 80 15 Room Air 99 12/22/21 11:26 36.7 C 85 12 124/64 92 Room Air 12/22/21 10:11 Room Air 12/22/21 07:38 36.4 C L 79 16 117/68 92 Room Air 12/22/21 07:01 80 18 98 Room Air PG Care Time/CCT Total # of Minutes Spent Total Time Spent with Patient: Total time spent is greater than 50% in coordination of care (as documented) at patient's floor/unit and/or counseling patient: Coding Level of Care Code 35021 Subseq Hosp Care Lvl 2 Diagnoses CHF exacerbation I50.9 COVID-19 U07.1 Elevated troponin R77.8 Wound infection T14.8XXA; L08.9 Hypokalemia E87.6 Paroxysmal A-fib I48.0 Diabetes E11.9 Hyperlipidemia E78.5 Hypertension I10
[2021-12-22] MEDS: POTASSIUM CHLORIDE / WTR 10 MEQ/100 ML PLCT IV SCH ×4 (17:06→21:02)
[2021-12-22] MEDS: AMOXICILLIN/CLAVULANATE 500 MG TAB PO SCH (17:06)
[2021-12-22] MEDS: POTASSIUM CHLORIDE PWD 20 MEQ PACK PO SCH (23:01)
[2021-12-23] MEDS: ALBUTEROL 0.5% NEB SOLN 2.5 MG/0.5 ML VIAL NEB SCH ×3 (00:17→13:20)
[2021-12-23 07:14] LABS: Hemoglobin 10.7 g/dl (12.0-16.0); Mean Corpuscular Hemoglobin 27.1 pg (25.0-34.0); Mean Corpuscular Hgb Conc 32.4 g/dL (32.0-36.0); Mean Corpuscular Volume 83.5 fL (80.0-100.0); Mean Platelet Volume 12.8 fL (9.4-12.3); Platelet Count 214 K/uL (130-400); RDW Coefficient of Variation 20.3 % (11.5-14.5); RDW Standard Deviation 60.3 fL (36.4-46.3); Red Blood Count 3.95 M/uL (3.93-5.22); White Blood Count 5.04 K/ul (4.8-10.8)
[2021-12-23] MEDS ORDERED: FUROSEMIDE 40 MG/4 ML VIAL IV SCH (09:00)
[2021-12-23 09:02] LABS: BUN Creatinine Ratio 26.9 (10-20); Creatinine Clr Calc Pharmacy 27.5 ml/min; Est GFR (African American) 49.9 ml/min; Est GFR (Non-African American) 43.1 ml/min; Potassium 3.5 mmol/L (3.5-5.1)
[2021-12-23] MEDS: INSULIN ASPART PER UNIT SC SCH ×2 (09:06→12:16)
[2021-12-23] MEDS: LANTUS PER UNIT CHARGE SQ SCH (09:58)
[2021-12-23] MEDS: AMOXICILLIN/CLAVULANATE 500 MG TAB PO SCH (10:00)
[2021-12-23] MEDS: POLYETHYLENE (MIRALAX) 17 GM PACK PO SCH (10:01)
[2021-12-23] MEDS: ENALAPRIL MALEATE 10 MG TAB PO SCH (10:01)
[2021-12-23] MEDS: ATORVASTATIN 20 MG TAB PO SCH (10:01)
[2021-12-23] MEDS: APIXABAN 2.5 MG TAB PO SCH (10:01)
[2021-12-23] MEDS: POTASSIUM CHLORIDE PWD 20 MEQ PACK PO SCH ×2 (10:02→14:46)
--- NOTE | 2021-12-26 22:52 | Discharge Summary ---
Date of Service December 22, 2021 Admission HPI Per Admitting Provider Darleen is an 81 year old female with a PMH significant for Paroxysmal afib on eliquis, S/P pacemaker placement, aortic stenosis, HFrEF (LVEF of 40-45% as of 10/26/21) DM, HTN, Hyperlipidemia, S/P left BKA on 09/25/21 who presented to the [facility] ED on 12/20/21 with a cheif complaint of SOB. Per chart review, the patient was seen in the [facility] ED on 12/17/21 for increased erythema, pain, and swelling at her BKA site. During that visit her family noted concern for possible CHF exacerbation as she had been SOB at that time. Admission was offered to the patient at that time but she refused and was discharged home with a course of Augmentin for her BKA site. Of note, the patient tested positive for Covid during her ED visit on 12/17. In the ED today the patient was found to be afebrile, hemodynamically stable, and stable on room air. Labs were significant for a potassium of 3.0, total bili of 1.6, high sensitivity troponin of 39.3, BNP of 2665. Chest xray showed cardiomegaly with unchanged pulmonary edema and small left with trace right pleural effusions. In the ED the patient was given 10 meq IV KCL, 40 meq PO KCL, and 60 mg IV lasix. At the time of the exam the patient was sitting in bed in no acute distress with her daughter and at bedside. The patient is [place] Speaking but her Daughter translated during my exam. They state that since leaving the ED on 12/17/21 the patient's shortness of breath and swelling has progressed. The patient is unable to lay flat or walk without feeling short of breath. Her daughter feels as though her right leg continues to get more swollen but thinks her left BKA site has started to improve since starting the Augmentin. When asked, the patient continues to take her 40 mg PO lasix daily but it has not been helping. She has a non-productive cough which she does not have at baseline. She has been using her at home albuterol inhaler for her SOB as well but it has much provided relief. The patient is currently on 2L O2 at the start of my exam, however, her nurse explained that she was only placed on it for comfort. I turned her O2 off during my exam and she remained above 95% on RA throughout. She denies current fever, chills, headache, chest pain, abdominal pain, nausea, vomiting, diarrhea, and recent falls. Principal Diagnosis acute combined systolic/diastolic CHF Discharge Exam General-alert and oriented x3, no fevers, no chills HEENT-head atraumatic and normocephalic, pupils equal and reactive to light, extraocular muscles intact Neck-no lymphadenopathy or thyromegaly, trachea midline Chest-clear. No wheezing. No respiratory distress Cardiac-regular rate and rhythm, normal S1 and S2 Abdomen-normal bowel sounds, nontender, no hepatosplenomegaly Extremities-left BKA status. Left leg stump is heavily bandaged. No edema noted in the right lower extremity Neuro-cranial nerves II through XII intact, motor and sensory function within normal limits, strength symmetrical , no focal deficits Psych-flat affect Discharge Data Allergies Allergy/AdvReac Type Severity Reaction Status Date / Time No Known Allergies Allergy Unverified 10/25/21 21:59 Consultations 12/20/21 19:03 ED Decision to Admit Stat 12/22/21 09:41 [facility] CHF Program Referral Routine Hospital Course (1) CHF exacerbation: Appears to be combined systolic and diastolic. Most recent cardiac echo revealed ejection fraction of 40%. Continue parenteral Lasix twice daily. Potassium supplement has been ordered. Monitor urine output and daily lab studies. Patient improved with lasix BID IV. transitioned to Daily on day prior to discharge. Patient's weight (bed scale) close to dry weight. Patient improved, will discharge. meds noted below. Family agreeable to discharge. (2) COVID-19: Currently asymptomatic. (3) Elevated troponin: No evidence of acute myocardial infarction. Telemetry. Serial labs (4) Wound infection: Involving left BKA stump. She is on Augmentin as an outpatient. Continue local care. (5) Hypokalemia: Oral potassium supplementation. (6) Paroxysmal A-fib: Telemetry. Continue eliquis . (7) Diabetes: Type II. resume home meds (8) Hyperlipidemia: Heart healthy diet. Continue atorvastatin (9) Hypertension: Treated and controlled with enalapril Total Time Total Time Spent Total Time Spent (In Minutes): 35 Discharge Plan Discharge Items Patient Disposition: Home - Self-Care Reason For Visit: SHORTNESS OF BREATH Discharge Diagnosis: Shortness of breath Condition on Discharge: Fair Activity: Resume your previous activity Non-emergency contact: Primary Care Provider Call non-emergency contact if: you have any medication questions Follow-up/Referrals: Donna Alfaro PA-C [Physician Teletype Adjuster] - 01/06/22 11:30 am (Congestive Heart Failure Program Appointment Information Early follow up is essential to managing your heart failure. An appointment has been scheduled for you with the [facility] Heart Failure Program within 7 days of discharge. Anticipate this visit to be 30-60 minutes long. Please expect a general matcher phone call from one of our nurses approximately 48 hours from discharge. They will also be placing an order for lab work to be completed 1-2 days prior to your heart failure follow up appointment. Please be sure to have this done so we can go over the results when you come in. Office Location The cardiology office building is located in front of the hospital at [address]. Bring the following with you to your follow-up doctor appointments: Please bring your daily weight log any discharge paperwork all of your medication bottles with you to this visit. ) PCP,NO [Primary Care Provider] - Diet: Heart Healthy Addtl Attending Provider Instructions: Call your Primary Care doctor if any of the following symptoms or problems start or get worse: * Shortness of breath or difficulty breathing * Wake up at night short of breath * Chest pain * Cough * Swelling of your hands, feet, or legs * More fatigued or tired with your normal activity * Palpitations - sudden fast heart beats WEIGHT * Weigh yourself every morning after using the bathroom. * Use the same scale. * Wear the same amount of clothing. * Write your weight down on a chart. * Call your Primary Care doctor if you gain more than 2-3 pounds in 1-2 days. MEDICATIONS * Use this discharge instruction sheet for medication instructions. * Take your medications at the time your doctor ordered. * Do not skip a dose of your medicines. * If you miss a dose of medicine, take it as soon as possible, but DO NOT DOUBLE A DOSE. * Read your medicine information when you get home. * Know all of the side effects of your medicine. If in doubt, ask your pharmaci st * Call your Primary Care doctor's office if you have any side effects. * Be sure all of your doctors know what medicine and herbs you take (including cold, flu, and herbal medicine). Take the following with you to your follow-up doctor appointments: * Weight Chart * Medication List * List of questions Do not drink excessive alcohol, beer or wine. Pending Studies at Discharge: No Stand-Alone Forms: My [facility], Smoking Cessation Medications and DC Order Prescriptions: New potassium chloride 20 mEq packet 20 meq PO DAILY Qty: 30 0RF Continued enalapril maleate 10 mg tablet 10 mg PO DAILY Qty: 30 0RF metformin 500 mg Tablet 500 mg PO BID Qty: 60 0RF atorvastatin 20 mg Tablet 20 mg PO DAILY Qty: 30 0RF apixaban 2.5 mg tablet 2.5 mg PO BID Qty: 60 0RF amoxicillin-pot clavulanate 875-125 mg tablet 1 tab PO BID Qty: 20 0RF albuterol sulfate 90 mcg/actuation HFA aerosol inhaler 2 inh inhalation Q6H Qty: 18 2RF furosemide [Lasix] 40 mg tablet 40 mg PO DAILY Qty: 30 0RF Discharge Orders: Discharge Order (Routine); Ordered 12/23/21 Ordered By: Anjum Jimenez Admission Data Admit Date/Time: 12/20/21 19:26 Attending Provider: Anjum Jimenez Admit Provider: Anjum Jimenez Primary Care Provider: PCP,NO Other Providers: Anjum Jimenez ; Donna Alfaro Other Interventions: Discharge Summary Assessment (RN) Last Done: 12/23/21 15:29 Coding Level of Care Code D/C DAY MANAGEMENT >30 MINS Diagnoses CHF exacerbation I50.9 COVID-19 U07.1 Elevated troponin R77.8 Wound infection T14.8XXA; L08.9 Hypokalemia E87.6 Paroxysmal A-fib I48.0 Diabetes E11.9 Hyperlipidemia E78.5 Hypertension I10
== END 2021-12-23 16:50 | disposition home or self-care (01) | DRG 291 ==
LOC: ED 15:24 → 2S 19:26 → SUATTDRO 19:26 → 2S 12-21 00:42

== ENCOUNTER 2021-12-29 12:35 | Inpatient (IN) ==
[2021-12-29 13:19] LABS: Basophils # (auto) 0.04 K/uL (0-0.2); Basophils % (auto) 0.9 %; Eosinophils # (auto) 0.01 K/uL (0-0.50); Eosinophils % (auto) 0.2 %; Hemoglobin 11.5 g/dl (12.0-16.0); Immature Granulocytes # (auto) 0.02 K/uL (0.00-0.02); Immature Granulocytes % (auto) 0.4 %; Lymphocytes % (auto) 21.5 %; Mean Corpuscular Hemoglobin 26.9 pg (25.0-34.0); Mean Corpuscular Hgb Conc 31.9 g/dL (32.0-36.0); Mean Corpuscular Volume 84.1 fL (80.0-100.0); Mean Platelet Volume 12.4 fL (9.4-12.3); Monocytes # (auto) 0.23 K/uL (0.24-0.82); Monocytes % (auto) 4.9 %; Neutrophils # (auto) 3.35 K/uL (1.4-6.5); Neutrophils % (auto) 72.1 %; Platelet Count 216 K/uL (130-400); RDW Coefficient of Variation 20.9 % (11.5-14.5); RDW Standard Deviation 62.7 fL (36.4-46.3); Red Blood Count 4.28 M/uL (3.93-5.22); White Blood Count 4.65 K/ul (4.8-10.8)
[2021-12-29 13:33] LABS: INR 1.2 (0.9-1.1); Partial Thromboplastin Time 26.2 Seconds (21.0-31.0); Prothrombin Time 12.8 Seconds (9.0-12.0)
[2021-12-29 13:42] LABS: Alanine Aminotransferase 31 U/L (7-52); Albumin Globulin Ratio 0.8 (0.9-2); Albumin Level 3.5 gm/dl (3.4-5.0); Alkaline Phosphatase 121 U/L (34-104); Anion Gap 10 (3-11); Aspartate Aminotransferase 30 U/L (13-39); BUN Creatinine Ratio 16.9 (10-20); Bilirubin,Total 1.5 mg/dl (0.2-1.0); Blood Urea Nitrogen 21 mg/dl (6-23); Calcium 9.8 mg/dl (8.5-10.1); Carbon Dioxide 25 mmol/L (21-32); Chloride 101 mmol/L (98-107); Est GFR (African American) 47.5 ml/min; Globulin 4.6 gm/dl (2.5-4.0); Glucose 131 mg/dl (70-99(Fasting)); Magnesium 2.1 mg/dl (1.7-2.4); Sodium 136 mmol/L (136-145); Total Protein 8.1 gm/dl (6.0-8.3)
[2021-12-29 13:52] LABS: Anisocytosis Present; Polychromasia 1+
--- NOTE | 2021-12-29 14:43 | Emergency Department Note ---
History of Present Illness General Chief complaint: Shortness of Breath/Dyspnea Stated complaint: SOB, WEAKNESS, R FOOT SWELLING Time Seen by Provider: 12/29/21 14:26 Source: patient and family (Daughter who is at the bedside and also translating) Mode of arrival: ambulatory Limitations: language barrier History of Present Illness Maximum Pain Intensity: 3 This patient is an 81-year-old female who is a history of CHF among other medical problems comes in after feeling short of breath since yesterday. She was just recently hospitalized for similar complaints on December 20. She also uses inhaler and says is not helping she has a slight cough no fever chills she has some left-sided chest pain today that she is vague about she also some swelling in her right foot her left foot has been previously amputated due to her diabetes. No known injury no trauma. She is on Eliquis. Home Medications Medication Instructions Recorded Confirmed Type apixaban 2.5 mg tablet 2.5 mg PO BID #60 tabs 11/05/21 12/20/21 Rx atorvastatin 20 mg tablet 20 mg PO DAILY #30 tabs 11/05/21 12/20/21 Rx enalapril maleate 10 mg tablet 10 mg PO DAILY #30 tabs 11/05/21 12/20/21 Rx metformin 500 mg tablet 500 mg PO BID #60 tabs 11/05/21 12/20/21 Rx albuterol sulfate 90 mcg/actuation 2 inh inhalation Q6H #18 grams 12/17/21 12/20/21 Rx aerosol inhaler amoxicillin 875 mg-potassium 1 tab PO BID #20 tabs 12/17/21 12/20/21 Rx clavulanate 125 mg tablet furosemide 40 mg tablet (Lasix) 40 mg PO DAILY #30 tabs 12/23/21 Rx potassium chloride 20 mEq oral 20 meq PO DAILY #30 ea 12/23/21 Rx packet Allergies Allergy/AdvReac Type Severity Reaction Status Date / Time No Known Allergies Allergy Unverified 10/25/21 21:59 Past Med/Surg History Medical History CHF (congestive heart failure) Diabetes Hyperlipidemia Hypertension Surgical History History of left below knee amputation Pacemaker Family History Other No significant family history Social History Smoking Status: Never smoker Second Hand Exposure: No; Hx Alcohol Use: No Hx Substance Use: No Preferred Language: Nepali Communication Ability: Impaired Communication Tools: IPad Hand Binder Stripper Required: Yes Beliefs That Will Affect Care: None marital status: Current Living Situation: Family How many Children do You have: 3 Feels Safe at Home: Yes Assistive Devices: Walker and Wheelchair Review of Systems A total of 10 systems reviewed and were otherwise negative Physical Exam Vital Signs Vital Signs - 24 hr 12/29/21 12:40 12/29/21 14:49 12/29/21 14:51 Temperature 36.2 C L Temperature Source Temporal Artery Scan Pulse Rate 81 Pulse Rate [Apical] 80 Pulse Rhythm Regular Pulse Rhythm [Apical] Regular Pulse Strength Normal Respiratory Rate 18 19 Respiratory Effort / Characteristics Non-Labored Spontaneous Non-Labored Respiratory Depth Normal Normal Respiratory Pattern Regular Blood Pressure 126/61 Blood Pressure [Left Arm] 122/88 Blood Pressure Mean 82 Blood Pressure Mean [Left Arm] 99 Blood Pressure Position Sitting Pulse Oximetry 98 97 97 Oxygen Delivery Method Room Air Room Air Room Air Oxygen Flow Rate 0 Sepsis Recent Fever Within 48 Hours No Sepsis New/Unexplained Change in Mental Status No Sepsis Action Taken by Nursing No Action Required 12/29/21 14:51 12/29/21 14:51 12/29/21 16:10 Temperature Temperature Source Pulse Rate 79 Pulse Rate [Apical] 80 Pulse Rhythm Regular Pulse Rhythm [Apical] Regular Pulse Strength Respiratory Rate 19 18 Respiratory Effort / Characteristics Non-Labored Respiratory Depth Respiratory Pattern Blood Pressure Blood Pressure [Left Arm] Blood Pressure Mean Blood Pressure Mean [Left Arm] Blood Pressure Position Pulse Oximetry 97 97 99 Oxygen Delivery Method Room Air Room Air Room Air Oxygen Flow Rate Sepsis Recent Fever Within 48 Hours Sepsis New/Unexplained Change in Mental Status Sepsis Action Taken by Nursing 12/29/21 18:51 12/29/21 19:38 Temperature Temperature Source Pulse Rate 80 Pulse Rate [Apical] 80 Pulse Rhythm Pulse Rhythm [Apical] Pulse Strength Respiratory Rate 15 18 Respiratory Effort / Characteristics Non-Labored Respiratory Depth Normal Respiratory Pattern Blood Pressure Blood Pressure [Left Arm] 129/61 Blood Pressure Mean Blood Pressure Mean [Left Arm] 83 Blood Pressure Position Pulse Oximetry 98 95 Oxygen Delivery Method Room Air Room Air Oxygen Flow Rate Sepsis Recent Fever Within 48 Hours Sepsis New/Unexplained Change in Mental Status Sepsis Action Taken by Nursing General: Well developed well nourished chronically ill-appearing older female who appears in no acute distress, breathing comfortably on room air. Normal speech HEENT: Normal cephalic atraumatic. Pupils are equal round and reactive to light. Extraocular movements are intact. Oropharynx is pink with moist mucous membranes. No swelling of the mouth lips or tongue. Neck: Supple with a midline trachea. No meningeal signs or stiffness, no JVD or bruits. No Stridor. Chest: Clear to auscultation bilaterally with exception of some coarse sounds in the bases.. No wheezes or rhonchi. No increased work of breathing. Heart: Regular rate and rhythm without murmurs or gallops. Abdomen: Soft nontender, nondistended without rebound guarding or rigidity. Extremities: No cyanosis clubbing or edema. He has a BKA on the left. She has some mild swelling on the right. When I remove the dressing of the BKA on the left there is no redness or warmth there is a large eschar where there is a large scab in the wound. This is starting to come off at the edges and there is some yellowish serosanguineous material underneath but no definite pus Spine/Back. Non tender to palpation. No CVA tenderness Skin: Good turgor without rashes. Neurologic exam: Cranial nerves two through 12 are intact. Motor and sensation are intact and symmetrical throughout. Course Administered Medications Discontinued Medications Furosemide (Furosemide Inj 20 Mg/2 Ml Vial) 20 mg IV ONE ONE Stop: 12/29/21 16:17 Last Admin: 12/29/21 16:24 Dose: 20 mg Documented By: BRANDON Furosemide (Furosemide 40 Mg/4 Ml Vial) Confirm Administered Dose 40 mg IV .STK- MED ONE Stop: 12/29/21 16:19 Last Admin: 12/29/21 16:25 Dose: Not Given Documented By: BRANDON Medical Decision Making Differential Diagnosis CHF, pneumonia, COVID, sepsis, cardiac disease, electrolyte or metabolic abnormality Medical Records Attestation: I reviewed the patient's medical records. Home Medications Current Medication List: was personally reviewed by me Laboratory Data Attestation: I reviewed the patient's lab results. Result diagrams: 12/29/21 12:58 12/29/21 12:58 Lab Results 12/29/21 12/29/21 12/29/21 Range/Units 12:55 12:58 12:58 WBC 4.65 L (4.8-10.8) K/ul RBC 4.28 (3.93-5.22) M/uL Hgb 11.5 L (12.0-16.0) g/dl Hct 36.0 (34.1-44.9) % MCV 84.1 (80.0-100.0) fL MCH 26.9 (25.0-34.0) pg MCHC 31.9 L (32.0-36.0) g/dL RDW Std Deviation 62.7 H (36.4-46.3) fL RDW Coeff of Edwardo 20.9 H (11.5-14.5) % Plt Count 216 (130-400) K/uL MPV 12.4 H (9.4-12.3) fL Immature Gran % (Auto) 0.4 % Neut % (Auto) 72.1 % Lymph % (Auto) 21.5 % [place] % (Auto) 4.9 % Eos % (Auto) 0.2 % Baso % (Auto) 0.9 % Neut # (Auto) 3.35 (1.4-6.5) K/uL Lymph # (Auto) 1.00 L (1.2-3.4) K/uL [place] # (Auto) 0.23 L (0.24-0.82) K/uL Eos # (Auto) 0.01 (0-0.50) K/uL Baso # (Auto) 0.04 (0-0.2) K/uL Immature Gran # (Auto) 0.02 (0.00-0.02) K/uL Polychromasia 1+ Anisocytosis Present PT 12.8 H (9.0-12.0) Seconds INR 1.2 H (0.9-1.1) APTT 26.2 (21.0-31.0) Seconds PTT Ratio 1.0 Sodium (136-145) mmol/L Potassium (3.5-5.1) mmol/L Chloride (98-107) mmol/L Carbon Dioxide (21-32) mmol/L Anion Gap (3-11) BUN (6-23) mg/dl Creatinine (0.6-1.2) mg/dl Est Cr Clr Drug Dosing Est GFR ( Amer) ml/min Est GFR (Non-Af Amer) ml/min BUN/Creatinine Ratio (10-20) Glucose (70-99(Fasting)) mg/dl Calcium (8.5-10.1) mg/dl Magnesium (1.7-2.4) mg/dl Total Bilirubin (0.2-1.0) mg/dl AST (13-39) U/L ALT (7-52) U/L Alkaline Phosphatase (34-104) U/L Troponin I High Sens (0-14) pg/ml B-Natriuretic Peptide (0-100) pg/ml Total Protein (6.0-8.3) gm/dl Albumin (3.4-5.0) gm/dl Globulin (2.5-4.0) gm/dl Albumin/Globulin Ratio (0.9-2) Procalcitonin < 0.05 (0-0.5) ng/ml SARS-CoV-2, RNA, NAAT (NEGATIVE) 12/29/21 12/29/21 12/29/21 Range/Units 12:58 12:58 14:53 WBC (4.8-10.8) K/ul RBC (3.93-5.22) M/uL Hgb (12.0-16.0) g/dl Hct (34.1-44.9) % MCV (80.0-100.0) fL MCH (25.0-34.0) pg MCHC (32.0-36.0) g/dL RDW Std Deviation (36.4-46.3) fL RDW Coeff of Edwardo (11.5-14.5) % Plt Count (130-400) K/uL MPV (9.4-12.3) fL Immature Gran % (Auto) % Neut % (Auto) % Lymph % (Auto) % [place] % (Auto) % Eos % (Auto) % Baso % (Auto) % Neut # (Auto) (1.4-6.5) K/uL Lymph # (Auto) (1.2-3.4) K/uL [place] # (Auto) (0.24-0.82) K/uL Eos # (Auto) (0-0.50) K/uL Baso # (Auto) (0-0.2) K/uL Immature Gran # (Auto) (0.00-0.02) K/uL Polychromasia Anisocytosis PT (9.0-12.0) Seconds INR (0.9-1.1) APTT (21.0-31.0) Seconds PTT Ratio Sodium 136 (136-145) mmol/L Potassium 4.0 (3.5-5.1) mmol/L Chloride 101 (98-107) mmol/L Carbon Dioxide 25 (21-32) mmol/L Anion Gap 10 (3-11) BUN 21 (6-23) mg/dl Creatinine 1.24 H (0.6-1.2) mg/dl Est Cr Clr Drug Dosing Not Reportable Est GFR ( Amer) 47.5 ml/min Est GFR (Non-Af Amer) 41.0 ml/min BUN/Creatinine Ratio 16.9 (10-20) Glucose 131 H (70-99(Fasting)) mg/dl Calcium 9.8 (8.5-10.1) mg/dl Magnesium 2.1 (1.7-2.4) mg/dl Total Bilirubin 1.5 H (0.2-1.0) mg/dl AST 30 (13-39) U/L ALT 31 (7-52) U/L Alkaline Phosphatase 121 H (34-104) U/L Troponin I High Sens 29.2 H (0-14) pg/ml B-Natriuretic Peptide (0-100) pg/ml Total Protein 8.1 (6.0-8.3) gm/dl Albumin 3.5 (3.4-5.0) gm/dl Globulin 4.6 H (2.5-4.0) gm/dl Albumin/Globulin Ratio 0.8 L (0.9-2) Procalcitonin (0-0.5) ng/ml SARS-CoV-2, RNA, NAAT POSITIVE A* (NEGATIVE) 12/29/21 Range/Units 15:29 WBC (4.8-10.8) K/ul RBC (3.93-5.22) M/uL Hgb (12.0-16.0) g/dl Hct (34.1-44.9) % MCV (80.0-100.0) fL MCH (25.0-34.0) pg MCHC (32.0-36.0) g/dL RDW Std Deviation (36.4-46.3) fL RDW Coeff of Edwardo (11.5-14.5) % Plt Count (130-400) K/uL MPV (9.4-12.3) fL Immature Gran % (Auto) % Neut % (Auto) % Lymph % (Auto) % [place] % (Auto) % Eos % (Auto) % Baso % (Auto) % Neut # (Auto) (1.4-6.5) K/uL Lymph # (Auto) (1.2-3.4) K/uL [place] # (Auto) (0.24-0.82) K/uL Eos # (Auto) (0-0.50) K/uL Baso # (Auto) (0-0.2) K/uL Immature Gran # (Auto) (0.00-0.02) K/uL Polychromasia Anisocytosis PT (9.0-12.0) Seconds INR (0.9-1.1) APTT (21.0-31.0) Seconds PTT Ratio Sodium (136-145) mmol/L Potassium (3.5-5.1) mmol/L Chloride (98-107) mmol/L Carbon Dioxide (21-32) mmol/L Anion Gap (3-11) BUN (6-23) mg/dl Creatinine (0.6-1.2) mg/dl Est Cr Clr Drug Dosing Est GFR ( Amer) ml/min Est GFR (Non-Af Amer) ml/min BUN/Creatinine Ratio (10-20) Glucose (70-99(Fasting)) mg/dl Calcium (8.5-10.1) mg/dl Magnesium (1.7-2.4) mg/dl Total Bilirubin (0.2-1.0) mg/dl AST (13-39) U/L ALT (7-52) U/L Alkaline Phosphatase (34-104) U/L Troponin I High Sens (0-14) pg/ml B-Natriuretic Peptide 2092 H (0-100) pg/ml Total Protein (6.0-8.3) gm/dl Albumin (3.4-5.0) gm/dl Globulin (2.5-4.0) gm/dl Albumin/Globulin Ratio (0.9-2) Procalcitonin (0-0.5) ng/ml SARS-CoV-2, RNA, NAAT (NEGATIVE) Imaging Data Attestation: I personally reviewed and interpreted this imaging study as follows: My Impression: Chest x-raycardiomegaly she does have some increased interstitial markings and I do suspect she is in a degree of failure she does have an effusion on the left. Radiologist's Impression: Chest X-Ray 12/29/21 12:43 SINGLE VIEW CHEST CLINICAL HISTORY: Dyspnea. FINDINGS: An AP, portable, upright chest radiograph is compared to study dated 12/20/2021. A 2-lead cardiac pacemaker is unchanged in position and partially obscures the left mid chest. The heart is markedly enlarged noting atherosclerotic calcification of the thoracic aorta. The pulmonary vasculature is noncongested. There is a left pleural effusion with left basilar consolidation. Trace pleural effusions in the right. No pneumothorax is seen. The skeletal structures are osteopenic. The bony thorax is grossly intact. Calcific tendinopathy is noted in the right shoulder. IMPRESSION: 1. Cardiomegaly and cardiac pacemaker without radiographic evidence of congestive failure. 2. Left pleural effusion and left basilar consolidation. This could represent atelectasis versus pneumonia/aspiration pneumonitis. Clinical correlation will be required. 3. Trace pleural effusion is also seen on the right. ACT 112: Negative or not required by law. Electronically signed by: Esvin Martin M.D. 12/29/2021 3:01 PM ECG Data Attestation: I personally reviewed and interpreted this ECG as follows: Indication: + SOB/dyspnea Rate (beats per minute): 80 Rhythm: + other (Ventricular paced rhythm) ECG Intervals/blocks: + IVCD ECG [place]: + Left axis deviation ECG ST segments: + Normal ST segments ECG Findings: no PACs or no PVCs Comparison ECG Date: from (12/21/21) Change: no significant change MDM Narrative This patient comes in with shortness of breath. She is not hypoxemic in triage. She does have history of CHF. She was hospitalized recently for this. EKG shows a paced rhythm. She has chronic renal insufficiency which is not significantly different. She has chronic anemia which actually looks slightly better than before. She was reassessed frequently. Her chest x-ray does look fluid overloaded and she does have some edema in her left leg. Her daughter says she is not been doing well at home I did give her 20 mg of Lasix. Her COVID test did come back positive but I suspect this is from prior infection. I looked at her amputee Tatian on the left leg is not red or warm there is a large eschar which is starting to come off and there is some serosanguineous material underneath. I do think she needs to be admitted for diuresis and further treatment and monitoring of consulted the [facility] hospitalist to see her for these measures. Monitoring: Orders placed in EMR for continuous cardiac monitoring. Upon my interpretation, she was noted to be in a paced rhythm with a rate of 80 Impression & Plan Acute on chronic systolic heart failure, Renal insufficiency, Pacemaker, COVID Discharge Plan Visit Data Chief Complaint: Shortness of Breath/Dyspnea Stated Complaint: SOB, WEAKNESS, R FOOT SWELLING ED Provider: Destin Chung Discharge Problem: Acute on chronic systolic heart failure, Renal insufficiency, Pacemaker, COVID Patient Disposition: Admitted As Inpatient Discharge Instructions Interventions: ED Discharge Assessment Last Done: 12/29/21 19:38 Forms Stand Alone Forms: [facility] Prescriptions Prescriptions: No Action enalapril maleate 10 mg tablet 10 mg PO DAILY Qty: 30 0RF metformin 500 mg Tablet 500 mg PO BID Qty: 60 0RF atorvastatin 20 mg Tablet 20 mg PO DAILY Qty: 30 0RF apixaban 2.5 mg tablet 2.5 mg PO BID Qty: 60 0RF amoxicillin-pot clavulanate 875-125 mg tablet 1 tab PO BID Qty: 20 0RF albuterol sulfate 90 mcg/actuation HFA aerosol inhaler 2 inh inhalation Q6H Qty: 18 2RF potassium chloride 20 mEq packet 20 meq PO DAILY Qty: 30 0RF furosemide [Lasix] 40 mg tablet 40 mg PO DAILY Qty: 30 0RF Referrals Referrals: PCP,NO [Physician] -
--- NOTE | 2021-12-29 15:02 | XRay Report ---
SINGLE VIEW CHEST CLINICAL HISTORY: Dyspnea. FINDINGS: An AP, portable, upright chest radiograph is compared to study dated 12/20/2021. A 2-lead ca rdiac pacemaker is unchanged in position and partially obscures the left mid chest. The heart is joan edly enlarged noting atherosclerotic calcification of the thoracic aorta. The pulmonary vasculature i s noncongested. There is a left pleural effusion with left basilar consolidation. Trace pleural effus ions in the right. No pneumothorax is seen. The skeletal structures are osteopenic. The bony thorax i s grossly intact. Calcific tendinopathy is noted in the right shoulder. IMPRESSION: 1. Cardiomegaly and cardiac pacemaker without radiographic evidence of congestive failure. 2. Left pleural effusion and left basilar consolidation. This could represent atelectasis versus pneu monia/aspiration pneumonitis. Clinical correlation will be required. 3. Trace pleural effusion is also seen on the right. ACT 112: Negative or not required by law. Electronically signed by: Esvin Martin M.D. 12/29/2021 3:01 PM
[2021-12-29] MEDS ORDERED: Patient's HEIGHT &/or WEIGHT Needed SCH (16:00)
[2021-12-29] MEDS ORDERED: FUROSEMIDE INJ 20 MG/2 ML VIAL IV ONE (16:16)
[2021-12-29] MEDS ORDERED: FUROSEMIDE 40 MG/4 ML VIAL IV ONE (16:18)
--- NOTE | 2021-12-29 16:46 | History & Physical Report ---
Date of Service December 29, 2021 Assessment & Plan (1) CHF exacerbation: Plan: Shortness of breath x1 day; acute on chronic congestive heart failure Elevated BNP, with shortness of breath and orthopnea on presentation Received Lasix 20 mg IV x1 in ER, will continue 40 mg daily (home dose 40 mg p.o. daily) Procalcitonin pending, if positive patient not improving with initial fluid follow-up with CT Troponin mildly elevated 29.2, repeat 2-hour and overnight trended - Last echo 10/26/2021: EF 40-45%. Moderately reduced systolic function. Hypokinesis of anterior wall, distal anterolateral wall, akinesis of the apex. Moderate aortic stenosis. Moderate to severe mitral calcification. Small pericardial effusion without evidence of tamponade. Technically difficult study. RVSP 38. Troponin mildly elevated, no chest pain at assessment. Trend troponins overnight Patient with a pericardial effusion at last admission in the setting of recent COVID positivity. Echo ordered given elevated troponin with shortness of breath/difficulty breathing but somewhat disproportionate lack of edema on CXR Type 2 diabetes mellitus Hold home metformin Convert to basal bolus while inpatient Glucose checks AC/at bedtime LLE BKA - Patient continued on a [place]/plan from last admission for concerns of cellulitis. Reports was improving and has no spreading erythema but did bump it causing it to separate slightly. Wound care consulted.? Need for debridement Paroxysmal A. fib Adequately rate controlled Continue apixaban Hyperlipidemia Continue atorvastatin Hypertension Continue enalapril Dispo: Medical with telemetry for acute CHF CODE STATUS: DNR/DNI, discussed with patient and family at bedside Diet: Type II DM, heart healthy DVT prophylaxis: Anticoagulated as noted (2) Below-knee amputation of left lower extremity: (3) Aortic stenosis: (4) Acute on chronic systolic heart failure: (5) Diabetes: (6) Hyperlipidemia: (7) Hypertension: History of Present Illness Primary Care Provider: Leon Marcum MD Patient is a 81-year-old female the past medical history of CHF who presents with worsening shortness of breath of 1 day. Recently discharged after similar admission on December 20. Feels her home inhaler has not helped her symptoms. Patient is seen at the bedside with her family. Iraqi-speaking. Reports has had about 2 days of shortness of breath, orthopnea, difficulty breathing. Denies chest pain. Does have some increased pain at her wound which she bumped when moving around at home, does not noticed any spreading redness or discharge from the wound. Notes that she had a left amputation performed in [place] which started with a distal amputation due to diabetic infection involving bone, but which progressed proximally and ultimately required amputation increased pain at wound x1 day. No fevers/chills. +Shortness of breath. Sitting propped up with pillows 2/2 shortness of breath. Has been taking water pill everyday, no missed doses. Has been urinating less. +weakness and fatigue. No tobacco product or alcohol use. No COPD or asthma. Was positive for COVID on 12/17. 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 Was discharged with Augmentin, feels overall the wound improved up until it started to separate slightly when she bumped it at home. Creatinine baseline 11.2, 1.24 on admission High-sensitivity troponin 29.2 BNP 2091, last 1479 discharged 12/23 COVID-positive, was COVID-positive 12/17/2021 Medical History: Reviewed Medications: Reviewed Surgical History: Reviewed Allergies: Reviewed Social History: Denies tobacco/ETOH use Code Status: DNR/DNI per pt and family at bedside Allergies Allergy/AdvReac Type Severity Reaction Status Date / Time No Known Allergies Allergy Unverified 10/25/21 21:59 Home Medications Medication Instructions Recorded Confirmed Type apixaban 2.5 mg tablet 2.5 mg PO BID #60 tabs 11/05/21 12/20/21 Rx atorvastatin 20 mg tablet 20 mg PO DAILY #30 tabs 11/05/21 12/20/21 Rx enalapril maleate 10 mg tablet 10 mg PO DAILY #30 tabs 11/05/21 12/20/21 Rx metformin 500 mg tablet 500 mg PO BID #60 tabs 11/05/21 12/20/21 Rx albuterol sulfate 90 mcg/actuation 2 inh inhalation Q6H #18 grams 12/17/21 12/20/21 Rx aerosol inhaler amoxicillin 875 mg-potassium 1 tab PO BID #20 tabs 12/17/21 12/20/21 Rx clavulanate 125 mg tablet furosemide 40 mg tablet (Lasix) 40 mg PO DAILY #30 tabs 12/23/21 Rx potassium chloride 20 mEq oral 20 meq PO DAILY #30 ea 12/23/21 Rx packet Past Med/Surg History Medical History CHF (congestive heart failure) Diabetes Hyperlipidemia Hypertension Surgical History History of left below knee amputation Pacemaker Family History Other No significant family history Social History Smoking Status: Never smoker Second Hand Exposure: No; Hx Alcohol Use: No Hx Substance Use: No Preferred Language: Iraqi Communication Ability: Impaired Communication Tools: IPad Acls Specialist Required: Yes Beliefs That Will Affect Care: None marital status: Current Living Situation: Family How many Children do You have: 3 Feels Safe at Home: Yes Assistive Devices: Walker and Wheelchair Review of Systems Review of Systems: All systems reviewed & are unremarkable except as noted in Subjective Physical Exam Physical Exam: General: A&Ox3. NAD. Cooperative. HEENT: Atraumatic, normocephalic. Hearing grossly intact. 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 Symmetrical chest rise. No increase in work of breathing. No respiratory distress. Cardiac: RRR, -mrg. Radial pulses intact and symmetrical. Abdominal: Nontender, nondistended, soft. BS present. 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 Left stump with large eschar, underlying area of necrosis without spreading erythema Results & Data Results & Data ([facility]) Vital Signs (Past 12 Hours) Vital Signs Temp Pulse Pulse Resp BP BP Pulse Ox 12/29/21 16:10 80 18 99 12/29/21 14:51 79 19 97 12/29/21 14:51 97 12/29/21 14:51 97 12/29/21 14:49 80 19 122/88 97 12/29/21 12:40 36.2 C L 81 18 126/61 98 O2 Del Method O2 Flow Rate 12/29/21 16:10 Room Air 12/29/21 14:51 Room Air 12/29/21 14:51 Room Air 12/29/21 14:51 Room Air 0 12/29/21 14:49 Room Air 12/29/21 12:40 Room Air PG Care Time/CCT Total # of Minutes Spent Total Time Spent with Patient: Total time spent is greater than 50% in coordination of care (as documented) at patient's floor/unit and/or counseling patient: Coding Level of Care Code 30080 Initial Inpt Care Lvl 2 Diagnoses CHF exacerbation I50.9 Below-knee amputation of left lower extremity S88.112A Aortic stenosis I35.0 Acute on chronic systolic heart failure I50.23 Diabetes E11.9 Hyperlipidemia E78.5 Hypertension I10
--- NOTE | 2021-12-29 18:01 | Electrocardiogram Report ---
Test Reason : Blood Pressure : / mmHG Vent. Rate : 080 BPM Atrial Rate : 062 BPM P-R Int : 000 ms QRS Dur : 166 ms QT Int : 452 ms P-R-T Axes : 000 -75 096 degrees QTc Int : 521 ms Ventricular-paced rhythm Abnormal ECG When compared with ECG of 21-DEC-2021 10:45, No significant change was found Confirmed by Eulalio Magallon ([id number]) on 12/29/2021 6:01:12 PM Referred By: Confirmed By:Ramon Magallon
[2021-12-29] MEDS ORDERED: GLUCOSE 10 TAB/TUBE PO PRN (20:52)
[2021-12-29] MEDS ORDERED: GLUCOSE 40% GEL 15 GM TUBE PO PRN (20:52)
[2021-12-29] MEDS ORDERED: GLUCAGON FOR INJ 1 MG VIAL SQ PRN (20:52)
[2021-12-29] MEDS ORDERED: POLYETHYLENE (MIRALAX) 17 GM PACK PO PRN (20:52)
[2021-12-29] MEDS ORDERED: CARBOHYDRATES FOR HYPOGLYCEMIA PO PRN (20:52)
[2021-12-29] MEDS ORDERED: DEXTROSE 50% 50 ML SYRINGE IV PRN (20:52)
[2021-12-29] MEDS: INSULIN ASPART PER UNIT SC SCH (22:29)
[2021-12-29] MEDS: APIXABAN 2.5 MG TAB PO SCH (23:06)
[2021-12-29] MEDS: AMOXICILLIN/CLAVULANATE 500 MG TAB PO SCH (23:07)
[2021-12-30] MEDS: ACETAMINOPHEN 325 MG TAB PO PRN (01:00)
[2021-12-30 01:58] LABS: Basophils # (auto) 0.03 K/uL (0-0.2); Basophils % (auto) 0.7 %; Eosinophils # (auto) 0.03 K/uL (0-0.50); Eosinophils % (auto) 0.7 %; Hematocrit (blood only) 34.6 % (34.1-44.9); Hemoglobin 10.9 g/dl (12.0-16.0); Immature Granulocytes # (auto) 0.02 K/uL (0.00-0.02); Immature Granulocytes % (auto) 0.4 %; Lymphocytes % (auto) 23.9 %; Mean Corpuscular Hemoglobin 26.9 pg (25.0-34.0); Mean Corpuscular Hgb Conc 31.5 g/dL (32.0-36.0); Mean Corpuscular Volume 85.4 fL (80.0-100.0); Mean Platelet Volume 11.9 fL (9.4-12.3); Monocytes # (auto) 0.28 K/uL (0.24-0.82); Monocytes % (auto) 6.1 %; Neutrophils # (auto) 3.14 K/uL (1.4-6.5); Neutrophils % (auto) 68.2 %; Platelet Count 174 K/uL (130-400); RDW Coefficient of Variation 20.8 % (11.5-14.5); RDW Standard Deviation 62.4 fL (36.4-46.3); Red Blood Count 4.05 M/uL (3.93-5.22)
[2021-12-30 02:25] LABS: Anisocytosis Present; Giant Platelets 1+; Ovalocytes 1+; Polychromasia 1+
[2021-12-30 02:26] LABS: BUN Creatinine Ratio 18.6 (10-20); Calcium 9.4 mg/dl (8.5-10.1); Creatinine Clr Calc Pharmacy 26.8 ml/min; Est GFR (African American) 50.4 ml/min; Est GFR (Non-African American) 43.5 ml/min; Potassium 3.5 mmol/L (3.5-5.1)
[2021-12-30 08:34] LABS: Estimated Average Glucose 134 mg/dl; Hemoglobin A1C 6.3 % (4.5-5.6)
[2021-12-30] MEDS: INSULIN ASPART PER UNIT SC SCH ×4 (08:50→20:48)
[2021-12-30] MEDS: APIXABAN 2.5 MG TAB PO SCH ×2 (08:57→21:02)
[2021-12-30] MEDS: AMOXICILLIN/CLAVULANATE 500 MG TAB PO SCH ×2 (08:57→21:01)
[2021-12-30] MEDS: ATORVASTATIN 20 MG TAB PO SCH (08:58)
[2021-12-30] MEDS ORDERED: FUROSEMIDE 40 MG/4 ML VIAL IV SCH (09:00)
--- NOTE | 2021-12-30 12:04 | XCELERA ---
[id number]
--- NOTE | 2021-12-30 16:10 | Hospitalist Progress Note ---
Date of Service December 30, 2021 Assessment & Plan (1) CHF exacerbation: Plan: Shortness of breath x1 day; acute on chronic congestive heart failure Elevated BNP, with shortness of breath and orthopnea on presentation Received Lasix 20 mg IV x1 in ER, will continue 40 mg daily (home dose 40 mg p.o. daily) - Still with mild SoB, crackles Procalcitonin neg, if positive patient not improving with initial fluid follow- up with CT Troponin mildly elevated 29.2, downtrending to 26 - Last echo 10/26/2021: EF 40-45%. Moderately reduced systolic function. Hypokinesis of anterior wall, distal anterolateral wall, akinesis of the apex. Moderate aortic stenosis. Moderate to severe mitral calcification. Small pericardial effusion without evidence of tamponade. Technically difficult study. RVSP 38. - Limited echo 12/30: EF 40-45%. Reduced wall motion: Normal basal segment, moderate hypokinesis of mid lateral and anterior segments, akinesis of apex and inferior wall. Severe aortic valve stenosis. Severe mitral calcification. Moderate mitral regurg. Patient with a pericardial effusion at last admission in the setting of recent COVID positivity. Echo ordered given elevated troponin with shortness of breath/difficulty breathing but somewhat disproportionate lack of edema on CXR , Results as noted Is clinically improving, will slow diuresis given severe aortic stenosis noted above. No chest pain, and troponin is downtrending. Echo does show wall motion abnormalities, but these are similar to prior Given shortness of breath and? PNA concern on admission we will follow-up with CT. Low suspicion for PE given baseline apixaban use without missed doses Type 2 diabetes mellitus Hold home metformin Convert to basal bolus while inpatient Glucose checks AC/at bedtime LLE BKA - Patient continued on a [place]/plan from last admission for concerns of cellulitis. Reports was improving and has no spreading erythema but did bump it causing it to separate slightly. Wound care consulted.? Need for debridement Wound care consulted. Discussed with surgery, would likely need to be seen by vascular as it is a BKA. Will complete Dopplers and right extremity work-up below, would benefit from debridement either as inpatient or an outpatient follow-up. No acute spreading erythema. Right lower extremity cool, sluggish refill Pulse intact but diminished, sluggish cap refill No ulceration Arterial Dopplers pending Paroxysmal A. fib Adequately rate controlled Continue apixaban Hyperlipidemia Continue atorvastatin Hypertension Continue enalapril Dispo: Medical with telemetry for acute CHF CODE STATUS: DNR/DNI, discussed with patient and family at bedside Diet: Type II DM, heart healthy DVT prophylaxis: Anticoagulated as noted (2) Below-knee amputation of left lower extremity: (3) Aortic stenosis: (4) Acute on chronic systolic heart failure: (5) Diabetes: (6) Hyperlipidemia: (7) Hypertension: Admission and Anticipated Discharge Date Admission Date: December 29, 2021 Subjective Seen at bedside this morning. Shortness of breath is greatly improved. No fever, chills, sweats, lightheadedness, dizziness. Is continuing to pee. No pain at left amputation site today, no pain in her right foot today. Continues to endorse fatigue.Denies chest pain/chest pressure at bedside Review of Systems Review of Systems: All systems reviewed & are unremarkable except as noted in Subjective Physical Exam Physical Exam: General: A&Ox3. NAD. Cooperative. HEENT: Atraumatic, normocephalic. Hearing grossly intact. 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 Symmetrical chest rise. No increase in work of breathing. No respiratory distress. Cardiac: RRR, -mrg. Radial pulses intact and symmetrical. Abdominal: Nontender, nondistended, soft. BS present. Lap Hand Tool strength, right leg ankle dorsiflexion/plantarflexion 5/5. Intact but diminished PT pulse, sluggish cap refill 3 seconds, Left stump with large eschar, underlying area of necrosis without spreading erythema Results & Data Results & Data ([facility]) Vital Signs (Past 12 Hours) Vital Signs Temp Pulse Resp BP Pulse Ox O2 Del Method 12/30/21 11:42 36.3 C L 80 17 121/72 98 Room Air 12/30/21 08:00 Room Air 12/30/21 07:45 36.4 C L 80 16 120/68 99 Room Air 12/30/21 04:18 36.4 C L 80 20 101/63 99 Room Air PG Care Time/CCT Total # of Minutes Spent Total Time Spent with Patient: Total time spent is greater than 50% in coordination of care (as documented) at patient's floor/unit and/or counseling patient: Coding Level of Care Code 43975 Subseq Hosp Care Lvl 2 Diagnoses CHF exacerbation I50.9 Below-knee amputation of left lower extremity S88.112A Aortic stenosis I35.0 Acute on chronic systolic heart failure I50.23 Diabetes E11.9 Hyperlipidemia E78.5 Hypertension I10
--- NOTE | 2021-12-30 19:12 | CT Scan Report ---
CT OF THE CHEST WITHOUT IV CONTRAST CLINICAL HISTORY: Shortness of breath, ?edema vs PNA COMPARISON STUDY: Chest radiograph December 29, 2021. CT DOSE: 188.10 mGy.cm TECHNIQUE: Axial images of the chest were obtained without IV contrast. Images were reviewed in the axial, sagittal, and coronal planes. IV contrast was not administered for this examination. Automat ed exposure control was utilized for the study. A dose lowering technique was utilized adhering to t he principles of ALARA. FINDINGS: A dual-lead left subclavian pacemaker is in place. Moderate cardiomegaly is noted with ext ensive coronary artery calcification. Moderate aortic valvular calcification is noted with mild dilat ation of the ascending aorta, measuring 4 cm. There is mild dilatation of the central pulmonary arter ies. Trace pericardial effusion is noted. There are small left and trace right pleural effusions. No pneumothorax is present. Central airways are patent. Lungs are suboptimally assessed due to respirato ry motion. Interlobular septal thickening within the lower lungs is noted. Mild patchy airspace opaci ties throughout the lungs are also present. There is no confluent consolidation. No suspicious lesion within the bony thorax is noted. Note is made of a partially peripherally calcified oval shaped hypo dense abnormality within the left breast that measures 5.2 x 3.6 cm. This could reflect an old seroma . Visualized portions of the upper abdomen are unremarkable on this unenhanced exam. There is no thor acic lymphadenopathy. IMPRESSION: 1. Cardiomegaly. Interlobular septal thickening consistent with pulmonary edema. Patchy airspace opac ities within the lungs favor alveolar edema. 2. Small left and trace right pleural effusion. 3. 5.2 x 3.6 cm partially peripherally calcified hypodense left breast abnormality. This is indetermi elvin but not highly suspicious and may reflect an old seroma. This could be correlated with surgical history. ACT 112: Negative or not required by law. Electronically signed by: Henry Dhillon M.D. 12/30/2021 7:10 PM
[2021-12-31 06:09] LABS: Basophils # (auto) 0.03 K/uL (0-0.2); Basophils % (auto) 0.7 %; Eosinophils # (auto) 0.03 K/uL (0-0.50); Eosinophils % (auto) 0.7 %; Hematocrit (blood only) 33.7 % (34.1-44.9); Hemoglobin 10.5 g/dl (12.0-16.0); Immature Granulocytes # (auto) 0.01 K/uL (0.00-0.02); Immature Granulocytes % (auto) 0.2 %; Lymphocytes # (auto) 1.35 K/uL (1.2-3.4); Lymphocytes % (auto) 33.3 %; Mean Corpuscular Hemoglobin 26.9 pg (25.0-34.0); Mean Corpuscular Hgb Conc 31.2 g/dL (32.0-36.0); Mean Corpuscular Volume 86.2 fL (80.0-100.0); Mean Platelet Volume 12.5 fL (9.4-12.3); Monocytes # (auto) 0.27 K/uL (0.24-0.82); Monocytes % (auto) 6.7 %; Neutrophils # (auto) 2.37 K/uL (1.4-6.5); Neutrophils % (auto) 58.4 %; Platelet Count 177 K/uL (130-400); RDW Coefficient of Variation 20.8 % (11.5-14.5); RDW Standard Deviation 63.5 fL (36.4-46.3); Red Blood Count 3.91 M/uL (3.93-5.22); White Blood Count 4.06 K/ul (4.8-10.8)
[2021-12-31 06:36] LABS: Anisocytosis Present; Echinocytes 1+
[2021-12-31 06:37] LABS: BUN Creatinine Ratio 22.7 (10-20); C Reactive Protein 0.83 mg/dl (0-0.5); Calcium 9.3 mg/dl (8.5-10.1); Creatinine Clr Calc Pharmacy 26.8 ml/min; Est GFR (African American) 49.9 ml/min; Est GFR (Non-African American) 43.1 ml/min; Potassium 3.6 mmol/L (3.5-5.1)
[2021-12-31] MEDS: INSULIN ASPART PER UNIT SC SCH ×4 (08:21→20:50)
--- NOTE | 2021-12-31 08:41 | Ultrasound Report ---
ULTRASOUND RIGHT LOWER EXTREMITY ARTERIAL CLINICAL HISTORY: Reduced capillary refill. Peripheral vascular disease. COMPARISON STUDY: No priors. TECHNIQUE: Real-time grayscale and color Doppler sonography of the arteries of the right lower extrem ity is performed from the inguinal crease to the foot. The patient declined ankle-brachial index asse ssment. FINDINGS: Atherosclerotic plaque and irregularity is seen throughout the arteries of the right lower extremity. There are triphasic arterial waveforms in the common femoral artery with velocities measur ing up to 125 cm/s. The profunda femoris artery is patent with velocities measuring up to 48 cm/s. Th ere are triphasic waveforms in the proximal and mid portions of the superficial femoral artery with v elocities measuring up to 60 cm/s. There are focally elevated velocities within the distal superficia l femoral artery measuring up to 258 cm/s indicating stenosis. There is blunting of the arterial upst roke and arterial waveform distal to this site. There are blunted arterial waveforms in the popliteal artery with velocities measuring up to 18 cm/s. There is two-vessel runoff to the foot. The capillar ies show monophasic and blunted arterial waveforms. Velocities in the posterior tibial and peroneal a rteries measure up to 56 cm per second. The proximal and mid portions of the anterior J-wire are spain nt. The distal anterior tibial artery appears occluded, as does the dorsalis pedis. IMPRESSION: 1. Peripheral vascular disease as above with evidence of high-grade stenosis in the distal superficia l femoral artery. 2. There is two-vessel runoff to the foot. 3. The distal anterior tibial artery and the dorsalis pedis artery are occluded. Dictated: 12/31/2021 7:41 AM Transcribed: 12/31/2021 7:57 AM Myriam [id number] [email or web address] Electronically signed by: Esvin Martin M.D. 12/31/2021 8:39 AM
[2021-12-31] MEDS: AMOXICILLIN/CLAVULANATE 500 MG TAB PO SCH ×2 (08:56→20:52)
[2021-12-31] MEDS: FUROSEMIDE 40 MG/4 ML VIAL IV SCH (08:56)
[2021-12-31] MEDS: ATORVASTATIN 20 MG TAB PO SCH (08:56)
[2021-12-31] MEDS: APIXABAN 2.5 MG TAB PO SCH ×2 (08:56→20:51)
--- NOTE | 2021-12-31 09:35 | Hospitalist Progress Note ---
Date of Service December 31, 2021 Assessment & Plan (1) CHF exacerbation: Plan: Shortness of breath x1 day; acute on chronic systolic heart failure Troponin mildly elevated 29.2, downtrending to 26 secondary to demand ischemia - Last echo 10/26/2021: EF 40-45%. Moderately reduced systolic function. Hypokinesis of anterior wall, distal anterolateral wall, akinesis of the apex. Moderate aortic stenosis. Moderate to severe mitral calcification. Small pericardial effusion without evidence of tamponade. RVSP 38. - Limited echo 12/30: EF 40-45%. Reduced wall motion: Normal basal segment, moderate hypokinesis of mid lateral and anterior segments, akinesis of apex and inferior wall. Severe aortic valve stenosis. Severe mitral calcification. Moderate mitral regurg. given seemed to have pulmonary edema on presentation will have cardiology weigh in on management , sees [facility], will ask [facility] cardiology to eval, daily furosemide on low dose CT. chest without contrast shows alveolar edema, and a calcified breast mass in left that favors old seroma Type 2 diabetes mellitus Hold home metformin Convert to basal bolus while inpatient Glucose checks AC/at bedtime LLE BKA - Patient continued on a [place]/plan from last admission for concerns of cellulitis. Reports was improving and has no spreading erythema but did bump it causing it to separate slightly. Wound care consulted.? Need for debridement Wound care consulted. Discussed with surgery, would likely need to be seen by vascular as it is a BKA. Dopplers right extremity work-up below,SFA stenosis with dp and posterior tibialis occlusion also Right lower extremity cool, sluggish refill Pulse intact but diminished, sluggish cap refill No ulceration Arterial Dopplers with high grade stenosis to SFA Dorsalis pedis and post tibialis occlusion, will also ask vascular to commnent Paroxysmal A. fib Adequately rate controlled Continue apixaban Hyperlipidemia Continue atorvastatin Hypertension Continue enalapril CODE STATUS: DNR/DNI, discussed with patient and family at bedside Diet: Type II DM, heart healthy DVT prophylaxis: Anticoagulated as noted (2) Below-knee amputation of left lower extremity: (3) Aortic stenosis: (4) Acute on chronic systolic heart failure: (5) Diabetes: (6) Hyperlipidemia: (7) Hypertension: Admission and Anticipated Discharge Date Admission Date: December 29, 2021 Subjective pt is with family director strategic planning, offered the translation ipad, the daughter declined, pt has some mild discomfort at left BKA wound site and has no pain to right leg Review of Systems Review of Systems: Mild distress and fatigue no headache, no visual changes she has some strabismus to right eye no speech or swallowing issues no chest pain, pressure or palpitations no shortness of breath, cough or wheezes no abdominal pain, nausea or vomiting, diarrhea or constipation no dysuria, hematuria or frequency right BKA with large eschar, left foot cool but non tender no back pain, CVA tenderness or radicular pain large eschar in wound of BKA no focal signs of weakness or numbness or altered sensation no complaints of anxiety or depression.. Physical Exam Physical Exam: The patient appeared chronically ill Vital signs as documented. Head exam is normocephalic atraumatic Neck is without JVD, thyromegaly, or carotid bruits. Lungs are diminshed at the bases with few crackles above Cardiac exam, Rhythm is regular..shrill RUSB murmur Abdominal exam reveals normal bowel sounds, soft non tender, no masses Extremities right BKA with large eschar in lenght of wound, left foot cool, there are well healed scars on foot not clear from family what the surgery was foot is cool with delayed cap refill but no open areas or gangrene Neurologic exam is alert and responds in congolese, can move extremities to command, has some strabismus Skin is without bruises or rashes Psychologically is without concerns for anxiety or depression.. Results & Data Results & Data ([facility]) Vital Signs (Past 12 Hours) Vital Signs Temp Pulse Pulse Resp BP Pulse Ox O2 Del Method 12/31/21 08:41 97.7 F 80 18 124/73 100 Room Air 12/31/21 03:43 98.1 F 79 18 111/67 97 Room Air 12/31/21 00:38 80 12/30/21 23:51 97.9 F 78 20 128/73 99 Room Air PG Care Time/CCT Total # of Minutes Spent Total Time Spent with Patient: Total time spent is greater than 50% in coordination of care (as documented) at patient's floor/unit and/or counseling patient: Coding Level of Care Code 44840 Subseq Hosp Care Lvl 3 Diagnoses CHF exacerbation I50.9 Below-knee amputation of left lower extremity S88.112A Aortic stenosis I35.0 Acute on chronic systolic heart failure I50.23 Diabetes E11.9 Hyperlipidemia E78.5 Hypertension I10
[2021-12-31] MEDS ORDERED: diphenhydrAMINE 50 MG/ML VIAL IV ONE (23:28)
[2022-01-01 06:59] LABS: Creatinine Clr Calc Pharmacy 28.5 ml/min; Est GFR (African American) 53.7 ml/min; Est GFR (Non-African American) 46.4 ml/min
--- NOTE | 2022-01-01 08:18 | Electrocardiogram Report ---
Test Reason : Blood Pressure : / mmHG Vent. Rate : 080 BPM Atrial Rate : 083 BPM P-R Int : 000 ms QRS Dur : 164 ms QT Int : 456 ms P-R-T Axes : 000 -72 098 degrees QTc Int : 525 ms Ventricular-paced rhythm Abnormal ECG When compared with ECG of 29-DEC-2021 12:50, No significant change was found Confirmed by Eulalio Magallon ([id number]) on 01/01/2022 8:17:30 AM Referred By: REFERRED SELF Confirmed By:Ramon Magallon
[2022-01-01] MEDS: INSULIN ASPART PER UNIT SC SCH ×4 (09:19→20:02)
[2022-01-01] MEDS: ATORVASTATIN 20 MG TAB PO SCH (09:24)
[2022-01-01] MEDS: AMOXICILLIN/CLAVULANATE 500 MG TAB PO SCH ×2 (09:24→20:00)
[2022-01-01] MEDS: APIXABAN 2.5 MG TAB PO SCH ×2 (09:24→20:00)
[2022-01-01] MEDS: FUROSEMIDE 40 MG/4 ML VIAL IV SCH (09:24)
[2022-01-01 09:43] LABS: BUN Creatinine Ratio 21.5 (10-20); Calcium 9.7 mg/dl (8.5-10.1); Creatinine Clr Calc Pharmacy 26.4 ml/min; Est GFR (African American) 48.9 ml/min; Est GFR (Non-African American) 42.2 ml/min; Potassium 3.7 mmol/L (3.5-5.1)
--- NOTE | 2022-01-01 12:16 | Cardiology Consultation ---
Date of Consultation January 01, 2022 Assessment & Plan (1) CHF (congestive heart failure): 1. Severe aortic stenosis 2. Acute on chronic diastolic and systolic heart failure 3. History of A. fib status post AV awilda ablation with dual-chamber cardiac pacemaker and atrial flutter. 4. Hypertension 5. Hyperlipidemia. 6. Diabetes mellitus 7. S/P LL BKA 8. Right leg SFA occlusion Ms. Davey appears to have progressive aortic stenosis from at least the end of last year to now, it has gone from mild to borderline severe. She has clearly been dealing with heart failure over the last few months. Her records from her cardiology team in [place] describe her as having preserved ejection fraction. At this point her EF has been 40 to 45% since September. She also has wall motion abnormalities since at least September. I did describe TAVR procedure with her and she said that she would be agreeable to intervention if she was a candidate. She would need a cardiac catheterization prior to this which could further investigate the source of her wall motion abnormalities. She no doubt has coronary disease as she has known vasculopathy in her lower extremities. I did describe TAVR procedure with her and she said that she would be agreeable to intervention if she was a candidate. She will be seen by vascular surgery later this afternoon. I did discuss her case with Dr. Colunga. At present, he does not think that he would perform any aggressive intervention on the left leg other than the debridement, and no intervention on the right leg. He does think she would have reasonable femoral access if she were to proceed with a TAVR. Blood pressure is well controlled. Her kidney function is marginally dry. I would recommend continued diuresis today. If her renal function looks worse tomorrow we will probably have to hold off on further diuretics. She has been incontinent so I&O is not accurate. Last two weights were stable. She did have an episode of chest discomfort without ischemia on EKG this morning. She has maintained a slightly elevated HS troponin around 30, likely secondary to her heart failure. I called her daughter and left a message on her machine to return my call here in the clinic so that we can further discuss per patient's request. History of Present Illness Attending Physician: Merritt John MD History of Present Illness Ms. Davey presented to the hospital 12/30 for worsening sob. She has been hospitalized multiple times since the summer for similar in addition to testing positive for COVID since October. She is Malaysian speaking and our discussion was aided by a tele lithopress operator. She denies chest pain although when I discussed with the hospitalists she has apparently been complaining of chest pain to her daughter, both at rest and with exertion. 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 She was discharged 12/26 for pain and swelling at the BKA site with Augmentin and the wound had been improving although she bumped it and it slightly. Her BNP is marginally higher than at her last discharge at 2,000. Her troponin has been slightly elevated without EKG changes. Echo in September showed an ejection fraction of 40 to 45%, hypokinesis of the anterior wall, distal anterior lateral wall, mid inferoseptum and mid inferior wall segments, and akinesis of the apex. Echocardiogram from this visit shows similar ejection fraction with moderate hypokinesis of the mid lateral and anterior segments with akinesis of the apex and inferior wall from mid ventricle to apex, similar to previous. She is also showing severe aortic valve stenosis status which is progressive from previous. Mild RVSP elevation at 30 to 40 mmHg. As of February, her cardiology notes from [place] describe her as mild. She is visibly short of breath as I in speaking to her although she denies feeling short of breath at rest. She does report that she was having worsening shortness of breath prior to her visit to the hospital. She denies any palpitations. She occasionally feels lightheaded. Allergies Allergy/AdvReac Type Severity Reaction Status Date / Time No Known Allergies Allergy Unverified 10/25/21 21:59 Home Medications Medication Instructions Recorded Confirmed Type apixaban 2.5 mg tablet 2.5 mg PO BID #60 tabs 11/05/21 12/20/21 Rx atorvastatin 20 mg tablet 20 mg PO DAILY #30 tabs 11/05/21 12/20/21 Rx enalapril maleate 10 mg tablet 10 mg PO DAILY #30 tabs 11/05/21 12/20/21 Rx metformin 500 mg tablet 500 mg PO BID #60 tabs 11/05/21 12/20/21 Rx albuterol sulfate 90 mcg/actuation 2 inh inhalation Q6H #18 grams 12/17/21 12/20/21 Rx aerosol inhaler amoxicillin 875 mg-potassium 1 tab PO BID #20 tabs 12/17/21 12/20/21 Rx clavulanate 125 mg tablet furosemide 40 mg tablet (Lasix) 40 mg PO DAILY #30 tabs 12/23/21 Rx potassium chloride 20 mEq oral 20 meq PO DAILY #30 ea 12/23/21 Rx packet Patient History Medical History CHF (congestive heart failure) Diabetes Hyperlipidemia Hypertension Surgical History History of left below knee amputation Pacemaker Family History Other No significant family history Social History Smoking Status: Former smoker Second Hand Exposure: No; Hx Alcohol Use: No Hx Substance Use: No Preferred Language: Malaysian Communication Ability: Effective Communication Ability Comment: Translater Ipad at bedside Communication Tools: IPad Driller Portable Required: Yes Beliefs That Will Affect Care: None and Cultural marital status: Current Living Situation: Family How many Children do You have: 3 Feels Safe at Home: Yes Assistive Devices: Wheelchair Review of Systems Review of Systems: All systems reviewed & are unremarkable except as noted in HPI & below Physical Exam Constitutional: WD/WN, vitals as above Respiratory: + labored breathing Auscultation: lungs clear to auscultation bilaterally Cardiovascular: Rate/Rhythm: regular rate and regular rhythm Heart Sounds: + murmur (3/6 rusb systolic) right lower extremity with pitting edema, cold to touch Skin: no rashes, warm and dry Neurologic: moves all extremities and awake Psychiatric: A+Ox3, euthymic affect Results & Data ([place]) Vital Signs (Past 12 Hours) Vital Signs Temp Pulse Pulse Resp BP BP Pulse Ox 01/01/22 08:00 80 01/01/22 11:09 36.4 C L 80 17 121/77 99 01/01/22 07:36 36.5 C 59 L 19 110/55 L 94 01/01/22 03:27 36.6 C 79 20 123/65 96 O2 Del Method 01/01/22 08:00 01/01/22 11:09 Room Air 01/01/22 07:36 Room Air 01/01/22 03:27 Room Air (1) CHF (congestive heart failure) Heart failure chronicity: acute Heart failure type: unspecified Qualified Code(s): I50.9 - Heart failure, unspecified
--- NOTE | 2022-01-01 15:30 | Communication Note ---
Date of Service: January 01, 2022 Will see patient on rounds in am Looking at the wound images, will most likely need extensive debridement of her stump in the OR If she does then will put her on the schedule for Wednesday
--- NOTE | 2022-01-01 18:19 | Hospitalist Progress Note ---
Date of Service January 01, 2022 Assessment & Plan (1) CHF exacerbation: Plan: Shortness of breath x1 day; acute on chronic systolic heart failure additional likely has acute on chronic diastolic heart failure due to valvular heart disease Troponin mildly elevated no significant spike of troponin elevation secondary to demand ischemia also spurred on by aortic stenosis - Last echo 10/26/2021: EF 40-45%. Moderately reduced systolic function. Hypokinesis of anterior wall, distal anterolateral wall, akinesis of the apex. Moderate aortic stenosis. Moderate to severe mitral calcification. Small pericardial effusion without evidence of tamponade. RVSP 38. - Limited echo 12/30: EF 40-45%. Reduced wall motion: Normal basal segment, moderate hypokinesis of mid lateral and anterior segments, akinesis of apex and inferior wall. Severe aortic valve stenosis. Severe mitral calcification. Moderate mitral regurg. given seemed to have pulmonary edema on presentation will have cardiology weigh in on management , sees [facility], will ask [facility] cardiology to eval, daily furosemide on low dose CT. chest without contrast shows alveolar edema, and a calcified breast mass in left that favors old seroma Type 2 diabetes mellitus Hold home metformin Convert to basal bolus while inpatient Glucose checks AC/at bedtime LLE BKA - Patient continued on a [place]/plan from last admission for concerns of cellulitis. Reports was improving and has no spreading erythema but did bump it causing it to separate slightly. Vascular surgery consulted likely need for debridement Dopplers right extremity work-up below,SFA stenosis with dp and posterior tibialis occlusion also Right lower extremity cool, sluggish refill No ulceration Arterial Dopplers with high grade stenosis to SFA Dorsalis pedis and post tibialis occlusion, will also ask vascular to comment, anticoagulation with apixiban Paroxysmal A. fib Adequately rate controlled Continue apixaban Hyperlipidemia Continue atorvastatin Hypertension Continue enalapril CODE STATUS: DNR/DNI, discussed with patient and family at bedside Diet: Type II DM, heart healthy DVT prophylaxis: Anticoagulated as noted (2) Below-knee amputation of left lower extremity: (3) Aortic stenosis: (4) Acute on chronic systolic heart failure: (5) Diabetes: (6) Hyperlipidemia: (7) Hypertension: Admission and Anticipated Discharge Date Admission Date: December 29, 2021 Subjective pt is pleasant and seems to be in no distress, cardiology did see and Echo suggest calcific aortic stenosis no further chest pain since am, no significant jump in troponin but also has RWMA on echo Review of Systems Review of Systems: Mild distress and fatigue no headache, no visual changes does have strabismus no speech or swallowing issues Substernal chest pain in the a.m. since resolved no additional pressure or palpitations Does have some baseline exertional dyspnea no abdominal pain, nausea or vomiting, diarrhea or constipation no dysuria, hematuria or frequency no focal joint pain or swelling no back pain, CVA tenderness or radicular pain no bruising, bleeding or rashes no focal signs of weakness or numbness or altered sensation no complaints of anxiety or depression.. Physical Exam Physical Exam: The patient appeared chronically ill Vital signs as documented. Head exam is normocephalic atraumatic Neck is without JVD, thyromegaly, or carotid bruits. Lungs are diminshed at the bases with few crackles above Cardiac exam, Rhythm is regular..shrill RUSB murmur Abdominal exam reveals normal bowel sounds, soft non tender, no masses Extremities right BKA with large eschar in lenght of wound, left foot cool, there are well healed scars on foot not clear from family what the surgery was foot is cool with delayed cap refill but no open areas or gangrene Neurologic exam is alert and responds in jordanian, can move extremities to command, has some strabismus Skin is without bruises or rashes Psychologically is without concerns for anxiety or depression.. Results & Data Results & Data ([facility]) Vital Signs (Past 12 Hours) Vital Signs Temp Pulse Pulse Resp BP BP Pulse Ox 01/01/22 16:00 80 01/01/22 15:16 97.7 F 79 16 112/72 94 01/01/22 08:00 80 01/01/22 11:09 97.5 F L 80 17 121/77 99 01/01/22 07:36 97.7 F 59 L 19 110/55 L 94 O2 Del Method 01/01/22 16:00 01/01/22 15:16 Room Air 01/01/22 08:00 01/01/22 11:09 Room Air 01/01/22 07:36 Room Air PG Care Time/CCT Total # of Minutes Spent Total Time Spent with Patient: Total time spent is greater than 50% in coordination of care (as documented) at patient's floor/unit and/or counseling patient: Coding Level of Care Code 83408 Subseq Hosp Care Lvl 2 Diagnoses CHF exacerbation I50.9 Below-knee amputation of left lower extremity S88.112A Aortic stenosis I35.0 Acute on chronic systolic heart failure I50.23 Diabetes E11.9 Hyperlipidemia E78.5 Hypertension I10
[2022-01-02 08:42] LABS: BUN Creatinine Ratio 24.6 (10-20); Calcium 9.5 mg/dl (8.5-10.1); Creatinine Clr Calc Pharmacy 28.3 ml/min; Est GFR (African American) 52.6 ml/min; Est GFR (Non-African American) 45.4 ml/min; Potassium 3.4 mmol/L (3.5-5.1)
[2022-01-02] MEDS: INSULIN ASPART PER UNIT SC SCH ×4 (08:46→19:47)
[2022-01-02] MEDS: AMOXICILLIN/CLAVULANATE 500 MG TAB PO SCH ×2 (08:47→19:51)
[2022-01-02] MEDS: FUROSEMIDE 40 MG/4 ML VIAL IV SCH ×2 (08:47→17:28)
[2022-01-02] MEDS: ATORVASTATIN 20 MG TAB PO SCH (08:47)
[2022-01-02] MEDS: APIXABAN 2.5 MG TAB PO SCH ×2 (08:47→19:52)
[2022-01-02] MEDS ORDERED: MAGNESIUM SULFATE / D5W 1 GM/100 ML BAG IV ONE (09:15)
--- NOTE | 2022-01-02 09:49 | Consultation ---
Date of Consultation January 02, 2022 Assessment & Plan (1) Below-knee amputation of left lower extremity: She has a dry eschar of her bka stump. The stump flap itself looks viable. I do not think there is secondary infection of the site. I would treat this with collagenase to loosen up the eschar so it can be removed as it peels up. No surgical debridement is needed at this time. She can follow up with the wound center for removal of the eschar as it loosens up with the santyl. (2) PAD (peripheral artery disease): Arterial noninvasives suggested a right superficial femoral artery stenosis. She does not have any pain in the foot and has no ulcerations, therefore no intervention is warranted at this time. The cyanosis of her foot is most likely due to poor perfusion secondary to her cardiac status. Thank you very much for letting us participate in the care of this patient. History of Present Illness Reason for Consultation: left bka stump Attending Physician: Merritt John MD History of Present Illness This is an 81yo female with severe cardiac disease who had a left bka. The stum p now has an eschar along almost the total length of the incision. She also has PAD of the right lower extremity but denies any pain in right foot. Allergies Allergy/AdvReac Type Severity Reaction Status Date / Time No Known Allergies Allergy Unverified 10/25/21 21:59 Home Medications Medication Instructions Recorded Confirmed Type apixaban 2.5 mg tablet 2.5 mg PO BID #60 tabs 11/05/21 12/20/21 Rx atorvastatin 20 mg tablet 20 mg PO DAILY #30 tabs 11/05/21 12/20/21 Rx enalapril maleate 10 mg tablet 10 mg PO DAILY #30 tabs 11/05/21 12/20/21 Rx metformin 500 mg tablet 500 mg PO BID #60 tabs 11/05/21 12/20/21 Rx albuterol sulfate 90 mcg/actuation 2 inh inhalation Q6H #18 grams 12/17/21 12/20/21 Rx aerosol inhaler amoxicillin 875 mg-potassium 1 tab PO BID #20 tabs 12/17/21 12/20/21 Rx clavulanate 125 mg tablet furosemide 40 mg tablet (Lasix) 40 mg PO DAILY #30 tabs 12/23/21 Rx potassium chloride 20 mEq oral 20 meq PO DAILY #30 ea 12/23/21 Rx packet Patient History Medical History CHF (congestive heart failure) Diabetes Hyperlipidemia Hypertension Surgical History History of left below knee amputation Pacemaker Family History Other No significant family history Social History Smoking Status: Former smoker Second Hand Exposure: No; Hx Alcohol Use: No Hx Substance Use: No Preferred Language: Azerbaijani Communication Ability: Effective Communication Ability Comment: Translater Ipad at bedside Communication Tools: IPad Fisheries Officer Required: Yes Beliefs That Will Affect Care: None and Cultural marital status: Current Living Situation: Family How many Children do You have: 3 Feels Safe at Home: Yes Assistive Devices: Wheelchair Review of Systems Review of Systems: Other Physical Exam Constitutional: + ill appearing Respiratory: normal respiratory effort; no respiratory distress Cardiovascular: Rate/Rhythm: regular rate and regular rhythm Vessels: femoral pulses present and dorsalis pedis pulses present (to doppler on right) Extremities: + abnormal capillary refill cyanotic looking right foot Gastrointestinal (Abdomen): Percussion/Palpation: no pulsatile mass Skin: no ulcers and no wound Neurologic: moves all extremities Psychiatric: Orientation: alert Results & Data ([facility]) Vital Signs (Past 12 Hours) Vital Signs Temp Pulse Resp BP Pulse Ox O2 Del Method 01/02/22 08:05 36.2 C L 61 18 124/65 98 Room Air 01/02/22 03:00 36.6 C 80 20 115/69 95 Room Air 01/01/22 23:00 37.1 C 79 18 133/69 91 Room Air
--- NOTE | 2022-01-02 09:57 | Hospitalist Progress Note ---
Date of Service January 02, 2022 Assessment & Plan (1) CHF exacerbation: Plan: Acute on chronic systolic heart failure additional likely has acute on chronic diastolic heart failure due to valvular heart disease Troponin mildly elevated no significant spike of troponin elevation secondary to demand ischemia also spurred on by aortic stenosis - Limited echo 12/30: EF 40-45%. Reduced wall motion: Normal basal segment, moderate hypokinesis of mid lateral and anterior segments, akinesis of apex and inferior wall. Severe aortic valve stenosis. Severe mitral calcification. Moderate mitral regurg. Small pericardial effusion without evidence of tamponade given seemed to have pulmonary edema on presentation cardiology helping with management , daily furosemide dose increased to BID , consideration of cardiac cath next week to eval depressed ejection fraction and RWMA seen on echo inpreparation of TAR workup CT. chest without contrast shows alveolar edema, and a calcified breast mass in left that favors old seroma Type 2 diabetes mellitus Hold home metformin Convert to basal bolus while inpatient Glucose checks AC/at bedtime LLE BKA - Patient continued on a [place]/plan from last admission for concerns of celluli tis. Reports was improving and has no spreading erythema but did bump it causing it to separate slightly. Vascular surgery consulted likely need for debridement Dopplers right extremity work-up below,SFA stenosis with dp and posterior tibialis occlusion also Right lower extremity cool, sluggish refill No ulceration Arterial Dopplers with high grade stenosis to SFA Dorsalis pedis and post tibialis occlusion, anticoagulation with apixiban vascular surgery does not feel intervention of bka eschar or SFA stenosis is warranted at this time will use enzymatic debrider on BKA Paroxysmal A. fib Adequately rate controlled Continue apixaban Hyperlipidemia Continue atorvastatin Hypertension Continue enalapril Chronic kidney disease, stage 3 CODE STATUS: DNR/DNI, discussed with patient and family at bedside Diet: Type II DM, heart healthy DVT prophylaxis: Anticoagulated as noted (2) Below-knee amputation of left lower extremity: (3) Aortic stenosis: (4) Acute on chronic systolic heart failure: (5) Diabetes: (6) Hyperlipidemia: (7) Hypertension: Admission and Anticipated Discharge Date Admission Date: December 29, 2021 Subjective pt was communicated with via the high speed printer operator service She states that she does want everything done, she understands that there are risks moving forward as we evaluate her heart for issues she is not in distress or has any focal issues at this time outside of profound fatigue and some conversational dyspnea Review of Systems Review of Systems: Mild distress and fatigue no headache, no visual changes does have strabismus no speech or swallowing issues Substernal chest pain in the a.m. since resolved no additional pressure or palpitations Does have some baseline exertional dyspnea no abdominal pain, nausea or vomiting, diarrhea or constipation no dysuria, hematuria or frequency no focal joint pain or swelling no back pain, CVA tenderness or radicular pain no bruising, bleeding or rashes no focal signs of weakness or numbness or altered sensation no complaints of anxiety or depression.. Physical Exam Physical Exam: The patient appeared chronically ill Vital signs as documented. Head exam is normocephalic atraumatic Neck is without JVD, thyromegaly, or carotid bruits. Lungs are diminshed at the bases with few crackles above Cardiac exam, Rhythm is regular..shrill RUSB murmur Abdominal exam reveals normal bowel sounds, soft non tender, no masses Extremities right BKA with large eschar in lenght of wound, left foot cool, there are well healed scars on foot foot is cool with delayed cap refill but no open areas or gangrene Neurologic exam is alert and responds in lao, can move extremities to command, has some strabismus Skin is without bruises or rashes Psychologically is without concerns for anxiety or depression.. Results & Data Results & Data ([facility]) Vital Signs (Past 12 Hours) Vital Signs Temp Pulse Resp BP Pulse Ox O2 Del Method 01/02/22 08:05 97.2 F L 61 18 124/65 98 Room Air 01/02/22 03:00 97.9 F 80 20 115/69 95 Room Air 01/01/22 23:00 98.8 F 79 18 133/69 91 Room Air PG Care Time/CCT Total # of Minutes Spent Total Time Spent with Patient: Total time spent is greater than 50% in coordination of care (as documented) at patient's floor/unit and/or counseling patient: Coding Level of Care Code 17735 Subseq Hosp Care Lvl 3 Diagnoses CHF exacerbation I50.9 Below-knee amputation of left lower extremity S88.112A Aortic stenosis I35.0 Acute on chronic systolic heart failure I50.23 Diabetes E11.9 Hyperlipidemia E78.5 Hypertension I10
[2022-01-02] MEDS: POTASSIUM CHLORIDE CRTAB 20 MEQ TABCR PO SCH ×2 (10:26→17:28)
[2022-01-02] MEDS: COLLAGENASE OINT 30 GM TUBE EXT SCH (10:27)
[2022-01-02] MEDS: METOPROLOL SUCC 25MG EXT REL TAB PO SCH (10:27)
--- NOTE | 2022-01-02 13:37 | Cardiology Progress Note ---
Date of Service January 02, 2022 Assessment & Plan Admission and Anticipated Discharge Date Admission Date: December 29, 2021 Subjective Appears SOB talking in sentences. Swelling in right leg. No CP, palps, dizzy. Looks chronically ill and quite frail. Results & Data ([facility]) Vital Signs (Past 12 Hours) Vital Signs Temp Pulse Resp BP Pulse Ox O2 Del Method 01/02/22 11:33 36.4 C L 59 L 20 114/75 97 Room Air 01/02/22 08:05 36.2 C L 61 18 124/65 98 Room Air 01/02/22 03:00 36.6 C 80 20 115/69 95 Room Air AAO x3 Heent: Moderately reduced carotid upstrokes Lungs: Decreased BS in the bases Heart: RRR 2/6 [place] late peaking with S2 slightly diminished, no diastolic murmurs Abd: soft, NT,ND, +BS Ext: BKA on left, swollen and cool LLE Impressions: (1) CHF (congestive heart failure): 1. Severe aortic stenosis (DI 0.26 based on [place] echo) 1B. Moderate LV dysfunction with wall motion abnormalities in at least 2 coronary territories 2. Acute on chronic diastolic and systolic heart failure 3. History of A. fib status post AV awilda ablation with dual-chamber cardiac pacemaker and atrial flutter. 4. Hypertension 5. Hyperlipidemia. 6. Diabetes mellitus 7. S/P LLE BKA 8. Right leg SFA occlusion As was d/w Dr John and Dr Colunga (at bed side). No plans for vascular to debride LLE stump. He doesn't want to intervene on the Right leg unless their is a non healing ulcer or rest pain. She likely has severe CAD in addition to nearly severe . In addition her LV Fxn in [place] earlier this year was normal and low has multiple RWMA and Moderate LV dysfunction. She has significant and severe co-morbidities. I'm not sure in her current state that she could go through a TAVR work up. We could cath her at [facility] and if she has severe CAD as she is not a surgical candidate, then PTCA and stenting would be her only option. She then would need CTA at [facility] TAVR protocal with a structural consult and then return for a TAVR. This is a lot for someone this frail. If she has PTCA we would need to delay TAVR x 1 month. As d/w Dr John by phone I think a goals of care conversation is appropriate. If the family wants everything done and understands the risks as well as understanding we could compromise SFA flow and Kidney Fxn and CVA/FL/ associated with procedures then we could cath on Wednesday. Increase lasix and accept some degree of prerenal azotemia and add low dose BB to statin Tx. If BP allows and renal fxn stable eventual ARB vs entresto.
[2022-01-03] MEDS: MELATONIN 3 MG TAB PO PRN ×2 (00:01→20:27)
[2022-01-03] MEDS: ACETAMINOPHEN 325 MG TAB PO PRN ×2 (00:01→20:28)
[2022-01-03] MEDS: INSULIN ASPART PER UNIT SC SCH ×4 (09:20→20:26)
[2022-01-03] MEDS: ATORVASTATIN 20 MG TAB PO SCH (09:26)
[2022-01-03] MEDS: AMOXICILLIN/CLAVULANATE 500 MG TAB PO SCH ×3 (09:27→22:30)
[2022-01-03] MEDS: APIXABAN 2.5 MG TAB PO SCH ×3 (09:27→22:30)
[2022-01-03] MEDS: POTASSIUM CHLORIDE CRTAB 20 MEQ TABCR PO SCH (09:27)
[2022-01-03] MEDS: METOPROLOL SUCC 25MG EXT REL TAB PO SCH (09:27)
[2022-01-03] MEDS: FUROSEMIDE 40 MG/4 ML VIAL IV SCH ×2 (09:28→17:31)
[2022-01-03] MEDS: COLLAGENASE OINT 30 GM TUBE EXT SCH (09:28)
--- NOTE | 2022-01-03 17:18 | Hospitalist Progress Note ---
Date of Service January 03, 2022 Assessment & Plan (1) CHF exacerbation: Plan: Acute on chronic systolic heart failure additional likely has acute on chronic diastolic heart failure due to valvular heart disease Troponin mildly elevated no significant spike of troponin elevation secondary to demand ischemia also spurred on by aortic stenosis - Limited echo 12/30: EF 40-45%. Reduced wall motion: Normal basal segment, moderate hypokinesis of mid lateral and anterior segments, akinesis of apex and inferior wall. Severe aortic valve stenosis. Severe mitral calcification. Moderate mitral regurg. Small pericardial effusion without evidence of tamponade cardiology helping with management , daily furosemide dose increased to BID , consideration of cardiac cath next week to eval depressed ejection fraction and RWMA seen on echo inpreparation of TAR workup at this time cardiac catheterization has not been formally set up Dr. Bazan and is not rounding over the weekend CT. chest without contrast shows alveolar edema, and a calcified breast mass in left that favors old seroma Type 2 diabetes mellitus Hold home metformin Convert to basal bolus while inpatient Glucose checks AC/at bedtime LLE BKA - Patient continued on a [place]/plan from last admission for concerns of cellulitis. Reports was improving and has no spreading erythema but did bump it causing it to separate slightly. Vascular surgery consulted likely need for debridement Dopplers right extremity work-up below,SFA stenosis with dp and posterior tibialis occlusion also Right lower extremity cool, sluggish refill No ulceration Arterial Dopplers with high grade stenosis to SFA Dorsalis pedis and post tibialis occlusion, anticoagulation with apixiban vascular surgery does not feel intervention of bka eschar or SFA stenosis is warranted at this time will use enzymatic debrider on BKA Paroxysmal A. fib Adequately rate controlled Continue apixaban Hyperlipidemia Continue atorvastatin Hypertension Continue enalapril Chronic kidney disease, stage 3 CODE STATUS: DNR/DNI, discussed with patient and family at bedside Diet: Type II DM, heart healthy DVT prophylaxis: Anticoagulated as noted (2) Below-knee amputation of left lower extremity: (3) Aortic stenosis: (4) Acute on chronic systolic heart failure: (5) Diabetes: (6) Hyperlipidemia: (7) Hypertension: Admission and Anticipated Discharge Date Admission Date: December 29, 2021 Subjective Patient was evaluated with daughter on her speaker phone attempted to use pot room supervisor service but the patient preferred talking to her daughter Daughter understands that the patient likely has multiple medical problems related to her vascular disease but that after speaking to her my mother she does want everything done, she understands that there are risks moving forward as we evaluate her heart for issues she is not in distress or has any focal issues at this time outside of profound fatigue and some conversational dyspnea Review of Systems Review of Systems: Mild distress and fatigue no headache, no visual changes does have strabismus no speech or swallowing issues Substernal chest pain in the a.m. since resolved no additional pressure or palpitations Does have some baseline exertional dyspnea no abdominal pain, nausea or vomiting, diarrhea or constipation no dysuria, hematuria or frequency no focal joint pain or swelling no back pain, CVA tenderness or radicular pain no bruising, bleeding or rashes no focal signs of weakness or numbness or altered sensation no complaints of anxiety or depression.. Physical Exam Physical Exam: The patient appeared chronically ill Vital signs as documented. Head exam is normocephalic atraumatic Neck is without JVD, thyromegaly, or carotid bruits. Lungs are diminshed at the bases with few crackles above Cardiac exam, Rhythm is regular..shrill RUSB murmur Abdominal exam reveals normal bowel sounds, soft non tender, no masses Extremities right BKA with large eschar in lenght of wound, left foot cool, there are well healed scars on foot foot is cool with delayed cap refill but no open areas or gangrene Neurologic exam is alert and responds in slovenian, can move extremities to command, has some strabismus Skin is without bruises or rashes Psychologically is without concerns for anxiety or depression.. Results & Data Results & Data ([facility]) Vital Signs (Past 12 Hours) Vital Signs Temp Pulse Pulse Resp BP BP Pulse Ox 01/03/22 16:28 97.3 F L 80 21 106/56 L 97 01/03/22 11:43 98.1 F 80 20 107/59 L 100 01/03/22 08:30 81 01/03/22 08:30 01/03/22 07:48 97.5 F L 80 20 112/71 99 O2 Del Method O2 Flow Rate 01/03/22 16:28 Nasal Cannula 1 01/03/22 11:43 Nasal Cannula 1 01/03/22 08:30 01/03/22 08:30 Nasal Cannula 1 01/03/22 07:48 Nasal Cannula 2 PG Care Time/CCT Total # of Minutes Spent Total Time Spent with Patient: Total time spent is greater than 50% in coordination of care (as documented) at patient's floor/unit and/or counseling patient: Coding Level of Care Code 07735 Subseq Hosp Care Lvl 3 Diagnoses CHF exacerbation I50.9 Below-knee amputation of left lower extremity S88.112A Aortic stenosis I35.0 Acute on chronic systolic heart failure I50.23 Diabetes E11.9 Hyperlipidemia E78.5 Hypertension I10
[2022-01-04 05:57] LABS: Creatinine Clr Calc Pharmacy 18.7 ml/min; Est GFR (African American) 32.4 ml/min
[2022-01-04 08:43] LABS: Hematocrit (blood only) 34.5 % (34.1-44.9); Hemoglobin 10.8 g/dl (12.0-16.0); Mean Corpuscular Hemoglobin 26.9 pg (25.0-34.0); Mean Corpuscular Hgb Conc 31.3 g/dL (32.0-36.0); Nucleated RBC # (auto) 0.04 K/uL (0-0); Nucleated RBC % (auto) 0.9 %; Platelet Count 165 K/uL (130-400); RDW Coefficient of Variation 21.7 % (11.5-14.5); RDW Standard Deviation 64.9 fL (36.4-46.3); Red Blood Count 4.01 M/uL (3.93-5.22); White Blood Count 4.59 K/ul (4.8-10.8)
[2022-01-04] MEDS: INSULIN ASPART PER UNIT SC SCH ×4 (09:01→21:31)
[2022-01-04 09:09] LABS: Anisocytosis Present; Basophils # (auto) 0.02 K/uL (0-0.2); Basophils % (auto) 0.4 %; Eosinophils # (auto) 0.03 K/uL (0-0.50); Eosinophils % (auto) 0.7 %; Giant Platelets 1+; Immature Granulocytes # (auto) 0.01 K/uL (0.00-0.02); Immature Granulocytes % (auto) 0.2 %; Lymphocytes # (auto) 1.22 K/uL (1.2-3.4); Lymphocytes % (auto) 26.6 %; Monocytes # (auto) 0.22 K/uL (0.24-0.82); Monocytes % (auto) 4.8 %; Neutrophils # (auto) 3.09 K/uL (1.4-6.5); Neutrophils % (auto) 67.3 %; Polychromasia 1+; Spherocytes 1+
[2022-01-04 09:11] LABS: Albumin Globulin Ratio 0.7 (0.9-2); Albumin Level 3.2 gm/dl (3.4-5.0); BUN Creatinine Ratio 23.8 (10-20); Bilirubin,Total 1.6 mg/dl (0.2-1.0); Calcium 9.2 mg/dl (8.5-10.1); Creatinine Clr Calc Pharmacy 18.4 ml/min; Est GFR (Non-African American) 27.6 ml/min; Globulin 4.5 gm/dl (2.5-4.0); Total Protein 7.7 gm/dl (6.0-8.3)
[2022-01-04] MEDS: METOPROLOL SUCC 25MG EXT REL TAB PO SCH (09:57)
[2022-01-04] MEDS: FUROSEMIDE 40 MG/4 ML VIAL IV SCH (09:57)
[2022-01-04] MEDS: APIXABAN 2.5 MG TAB PO SCH ×2 (09:57→21:32)
[2022-01-04] MEDS: ATORVASTATIN 20 MG TAB PO SCH (09:58)
[2022-01-04] MEDS: COLLAGENASE OINT 30 GM TUBE EXT SCH (09:59)
[2022-01-04] MEDS: AMOXICILLIN/CLAVULANATE 500 MG TAB PO SCH ×2 (10:35→21:32)
[2022-01-04] MEDS ORDERED: ONDANSETRON INJ 2 MG/ML 2 ML VIAL IV STA (12:29)
[2022-01-04] MEDS ORDERED: ONDANSETRON INJ 2 MG/ML 2 ML VIAL ONE (12:31)
[2022-01-04] MEDS ORDERED: MoRPHine SULFATE 5 MG/0.25 ML UDP PO PRN (16:13)
--- NOTE | 2022-01-04 20:45 | Communication Note ---
Date of Service: January 04, 2022 Notified that patient was "made comfort care this afternoon but now patient and family are saying that she does not want to be anymore and would want comp ressions and vented." I personally went up to evaluate patient and discuss code status / goals of care with patient and patient's daughter, Ashli (by phone, phone #[phone]). Patient's was also in the room at time of discussion. Wood Casket Assembler Breanne #[id number] was used in the room via iPad for discussion with patient. Per my discussion with patient's daughter, she agrees with plan for comfort measures given patient's deterioration and multiple comorbidities. Daughter feels that her stepfather (patient's ) is having a harder time with this decision as "he doesn't want to lose her and is trying to tell her to have everything done." When patient asked directly about her goals, she does state that she wants to continue with comfort measures. Patient confirms that she does NOT want chest compressions and does NOT want intubation; Code status reviewed and patient confirms DNR / DNI. Code status unchanged. Continue with current comfort measures. Resident Activity Tracking Resident Involvement: Resident Care Provided Care Provided: Adult Hospital Medicine
--- NOTE | 2022-01-04 21:11 | Hospitalist Progress Note ---
Date of Service January 04, 2022 Assessment & Plan (1) CHF exacerbation: Plan: Acute on chronic systolic heart failure additional likely has acute on chronic diastolic heart failure due to valvular heart disease Troponin mildly elevated no significant spike of troponin elevation secondary to demand ischemia also spurred on by aortic stenosis - Limited echo 12/30: EF 40-45%. Reduced wall motion: Normal basal segment, moderate hypokinesis of mid lateral and anterior segments, akinesis of apex and inferior wall. Severe aortic valve stenosis. Severe mitral calcification. Moderate mitral regurg. Small pericardial effusion without evidence of tamponade cardiology helping with management , daily furosemide dose increased to BID , consideration of cardiac cath next week to eval depressed ejection fraction and RWMA seen on echo in preparation of TAR workup at this time cardiac catheterization has not been formally set up Dr. Bazan and is not rounding over the weekend CT. chest without contrast shows alveolar edema, and a calcified breast mass in left that favors old seroma On 01/04 Patient appears to be deteriorated. Had discussion with and daughter. Daughter discussed options with family, and choose to go the palliative care route. FOOD AND NUTRITION SERVICES ASSISTANT orders placed. Patient will be transferred to med/surg Type 2 diabetes mellitus Hold home metformin Convert to basal bolus while inpatient Glucose checks AC/at bedtime LLE BKA - Patient continued on a [place]/plan from last admission for concerns of cellulitis. Reports was improving and has no spreading erythema but did bump it causing it to separate slightly. Vascular surgery consulted likely need for debridement Dopplers right extremity work-up below,SFA stenosis with dp and posterior tibialis occlusion also Right lower extremity cool, sluggish refill No ulceration Arterial Dopplers with high grade stenosis to SFA Dorsalis pedis and post tibialis occlusion, anticoagulation with apixiban vascular surgery does not feel intervention of bka eschar or SFA stenosis is warranted at this time will use enzymatic debrider on BKA Paroxysmal A. fib Adequately rate controlled Continue apixaban Hyperlipidemia Continue atorvastatin Hypertension Continue enalapril Chronic kidney disease, stage 3 CODE STATUS: DNR/DNI, discussed with patient and family at bedside Diet: Type II DM, heart healthy DVT prophylaxis: Anticoagulated as noted (2) Below-knee amputation of left lower extremity: (3) Aortic stenosis: (4) Acute on chronic systolic heart failure: (5) Diabetes: (6) Hyperlipidemia: (7) Hypertension: Admission and Anticipated Discharge Date Admission Date: December 29, 2021 Subjective Patient not answering questions Appears confused and short of brreath. is at bedisde and is extensively updated. Called daughter on the phone, had extensive discussion with daughter Review of Systems Review of Systems: All systems reviewed & are unremarkable except as noted in HPI & below Physical Exam Physical Exam: The patient appeared chronically ill Vital signs as documented. Head exam is normocephalic atraumatic Neck is without JVD, thyromegaly, or carotid bruits. Lungs are diminished at the bases with few crackles above Cardiac exam, Rhythm is regular..shrill RUSB murmur Abdominal exam reveals normal bowel sounds, soft non tender, no masses Extremities right BKA with large eschar in lenght of wound, left foot cool, there are well healed scars on foot foot is cool with delayed cap refill but no open areas or gangrene Neurologic exam is alert and responds in zambian, can move extremities to command, has some strabismus Skin is without bruises or rashes Psychologically is without concerns for anxiety or depression. Results & Data Results & Data ([facility]) Vital Signs (Past 12 Hours) Vital Signs Temp Pulse Resp BP BP Pulse Ox O2 Del Method 01/04/22 15:22 36.5 C 83 18 120/70 99 Nasal Cannula 01/04/22 11:54 36.4 C L 80 22 106/58 L 98 Nasal Cannula O2 Flow Rate 01/04/22 15:22 1 01/04/22 11:54 1 PG Care Time/CCT Total # of Minutes Spent Total Time Spent with Patient: Total time spent is greater than 50% in coordination of care (as documented) at patient's floor/unit and/or counseling patient: Prolonged Care Time Prolonged Care Time: Yes Total Prolonged Care Time: 65 15:00 to 16:05 Coding Level of Care Code 26601 Subseq Hosp Care Lvl 3 (25 - SIGNIFICANT, SEPARATELY IDENTIFIABLE ) Diagnoses CHF exacerbation I50.9 Below-knee amputation of left lower extremity S88.112A Aortic stenosis I35.0 Acute on chronic systolic heart failure I50.23 Diabetes E11.9 Hyperlipidemia E78.5 Hypertension I10 Additional Codes Prolonged Care Time - Prolonged Care Time: Yes ([id number])
[2022-01-04] MEDS: MoRPHine SULFATE 5 MG/0.25 ML UDP PO PRN (23:03)
[2022-01-05] MEDS: APIXABAN 2.5 MG TAB PO SCH ×2 (09:00→21:23)
[2022-01-05] MEDS: AMOXICILLIN/CLAVULANATE 500 MG TAB PO SCH (09:01)
[2022-01-05] MEDS: METOPROLOL SUCC 25MG EXT REL TAB PO SCH (09:01)
[2022-01-05] MEDS: COLLAGENASE OINT 30 GM TUBE EXT SCH (09:02)
[2022-01-05] MEDS: INSULIN ASPART PER UNIT SC SCH ×4 (09:09→21:23)
[2022-01-05] MEDS: MoRPHine SULFATE 5 MG/0.25 ML UDP PO PRN ×2 (15:09→17:07)
--- NOTE | 2022-01-05 22:10 | Hospitalist Progress Note ---
Date of Service January 05, 2022 Assessment & Plan (1) CHF exacerbation: Plan: Acute on chronic systolic heart failure additional likely has acute on chronic diastolic heart failure due to valvular heart disease Troponin mildly elevated no significant spike of troponin elevation secondary to demand ischemia also spurred on by aortic stenosis - Limited echo 12/30: EF 40-45%. Reduced wall motion: Normal basal segment, moderate hypokinesis of mid lateral and anterior segments, akinesis of apex and inferior wall. Severe aortic valve stenosis. Severe mitral calcification. Moderate mitral regurg. Small pericardial effusion without evidence of tamponade cardiology helping with management , daily furosemide dose increased to BID , consideration of cardiac cath next week to eval depressed ejection fraction and RWMA seen on echo in preparation of TAR workup at this time cardiac catheterization has not been formally set up Dr. Bazan and is not rounding over the weekend CT. chest without contrast shows alveolar edema, and a calcified breast mass in left that favors old seroma On 01/04 Patient appears to be deteriorated. Had discussion with and daughter. Daughter discussed options with family, and choose to go the palliative care route. CONTRACTOR BROOMCORN THRESHING orders placed. Patient will be transferred to med/surg 01/05 Patiet remains onCXMO. family updated at bedside. increased availability of morphine. Type 2 diabetes mellitus Hold home metformin Convert to basal bolus while inpatient Glucose checks AC/at bedtime LLE BKA - Patient continued on a [place]/plan from last admission for concerns of cellulitis. Reports was improving and has no spreading erythema but did bump it causing it to separate slightly. Vascular surgery consulted likely need for debridement Dopplers right extremity work-up below,SFA stenosis with dp and posterior tibialis occlusion also Right lower extremity cool, sluggish refill No ulceration Arterial Dopplers with high grade stenosis to SFA Dorsalis pedis and post tibialis occlusion, anticoagulation with apixiban vascular surgery does not feel intervention of bka eschar or SFA stenosis is warranted at this time will use enzymatic debrider on BKA Paroxysmal A. fib Adequately rate controlled Continue apixaban Hyperlipidemia Continue atorvastatin Hypertension Continue enalapril Chronic kidney disease, stage 3 CODE STATUS: DNR/DNI, discussed with patient and family at bedside Diet: Type II DM, heart healthy DVT prophylaxis: Anticoagulated as noted (2) Below-knee amputation of left lower extremity: (3) Aortic stenosis: (4) Acute on chronic systolic heart failure: (5) Diabetes: (6) Hyperlipidemia: (7) Hypertension: Admission and Anticipated Discharge Date Admission Date: December 29, 2021 Subjective 81 yo female appears comfortable. Review of Systems Review of Systems: All systems reviewed & are unremarkable except as noted in HPI & below Physical Exam Physical Exam: The patient appeared chronically ill Vital signs as documented. Head exam is normocephalic atraumatic Neck is without JVD, thyromegaly, or carotid bruits. Lungs are diminished at the bases with few crackles above Cardiac exam, Rhythm is regular..shrill RUSB murmur Abdominal exam reveals normal bowel sounds, soft non tender, no masses Extremities right BKA with large eschar in lenght of wound, left foot cool, there are well healed scars on foot foot is cool with delayed cap refill but no open areas or gangrene Neurologic exam is alert and responds in bengali, can move extremities to command, has some strabismus Skin is without bruises or rashes Psychologically is without concerns for anxiety or depression. PG Care Time/CCT Total # of Minutes Spent Total Time Spent with Patient: Total time spent is greater than 50% in coordination of care (as documented) at patient's floor/unit and/or counseling patient: Coding Level of Care Code 26219 Subseq Hosp Care Lvl 2 Diagnoses CHF exacerbation I50.9 Below-knee amputation of left lower extremity S88.112A Aortic stenosis I35.0 Acute on chronic systolic heart failure I50.23 Diabetes E11.9 Hyperlipidemia E78.5 Hypertension I10 Time Spent (min) 25
[2022-01-06] MEDS: INSULIN ASPART PER UNIT SC SCH (09:15)
[2022-01-06] MEDS: APIXABAN 2.5 MG TAB PO SCH ×2 (09:26→21:35)
[2022-01-06] MEDS: COLLAGENASE OINT 30 GM TUBE EXT SCH (09:27)
[2022-01-06] MEDS: METOPROLOL SUCC 25MG EXT REL TAB PO SCH (09:27)
[2022-01-06] MEDS: MoRPHine SULFATE 5 MG/0.25 ML UDP PO PRN ×3 (11:04→16:50)
[2022-01-06] MEDS ORDERED: ATROPINE SULFATE 1% OP SOLN 5 ML BTL OP PRN (17:19)
--- NOTE | 2022-01-06 22:15 | Hospitalist Progress Note ---
Date of Service January 06, 2022 Assessment & Plan (1) CHF exacerbation: Plan: Acute on chronic systolic heart failure additional likely has acute on chronic diastolic heart failure due to valvular heart disease Troponin mildly elevated no significant spike of troponin elevation secondary to demand ischemia also spurred on by aortic stenosis - Limited echo 12/30: EF 40-45%. Reduced wall motion: Normal basal segment, moderate hypokinesis of mid lateral and anterior segments, akinesis of apex and inferior wall. Severe aortic valve stenosis. Severe mitral calcification. Moderate mitral regurg. Small pericardial effusion without evidence of tamponade cardiology helping with management , daily furosemide dose increased to BID , consideration of cardiac cath next week to eval depressed ejection fraction and RWMA seen on echo in preparation of TAR workup at this time cardiac catheterization has not been formally set up Dr. Bazan and is not rounding over the weekend CT. chest without contrast shows alveolar edema, and a calcified breast mass in left that favors old seroma On 01/04 Patient appears to be deteriorated. Had discussion with and daughter. Daughter discussed options with family, and choose to go the palliative care route. VAMP MAKER orders placed. Patient will be transferred to med/surg 01/05 Patiet remains onCXMO. family updated at bedside. increased availability of morphine. 01/06 Continue VAMP MAKER. Type 2 diabetes mellitus Hold home metformin Convert to basal bolus while inpatient Glucose checks AC/at bedtime LLE BKA - Patient continued on a [place]/plan from last admission for concerns of cellulitis. Reports was improving and has no spreading erythema but did bump it causing it to separate slightly. Vascular surgery consulted likely need for debridement Dopplers right extremity work-up below,SFA stenosis with dp and posterior tibialis occlusion also Right lower extremity cool, sluggish refill No ulceration Arterial Dopplers with high grade stenosis to SFA Dorsalis pedis and post tibialis occlusion, anticoagulation with apixiban vascular surgery does not feel intervention of bka eschar or SFA stenosis is warranted at this time will use enzymatic debrider on BKA Paroxysmal A. fib Adequately rate controlled Continue apixaban Hyperlipidemia Continue atorvastatin Hypertension Continue enalapril Chronic kidney disease, stage 3 CODE STATUS: DNR/DNI, discussed with patient and family at bedside Diet: Type II DM, heart healthy DVT prophylaxis: Anticoagulated as noted (2) Below-knee amputation of left lower extremity: (3) Aortic stenosis: (4) Acute on chronic systolic heart failure: (5) Diabetes: (6) Hyperlipidemia: (7) Hypertension: Admission and Anticipated Discharge Date Admission Date: December 29, 2021 Subjective Family reports she is comfortable. Review of Systems Review of Systems: All systems reviewed & are unremarkable except as noted in HPI & below Physical Exam Physical Exam: Patient is lying in bed comfortbale Results & Data Results & Data ([facility]) Vital Signs (Past 12 Hours) Vital Signs O2 Del Method 01/06/22 10:38 Room Air PG Care Time/CCT Total # of Minutes Spent Total Time Spent with Patient: Total time spent is greater than 50% in coordination of care (as documented) at patient's floor/unit and/or counseling patient: Coding Level of Care Code 95057 Subseq Hosp Care Lvl 1 Diagnoses CHF exacerbation I50.9 Below-knee amputation of left lower extremity S88.112A Aortic stenosis I35.0 Acute on chronic systolic heart failure I50.23 Diabetes E11.9 Hyperlipidemia E78.5 Hypertension I10
[2022-01-07] MEDS: MoRPHine SULFATE 2 MG/ML CARP IV PRN ×6 (03:10→17:43)
[2022-01-07] MEDS: MoRPHine SULFATE 5 MG/0.25 ML UDP PO PRN ×2 (06:40→18:49)
[2022-01-07] MEDS: COLLAGENASE OINT 30 GM TUBE EXT SCH (07:43)
[2022-01-07] MEDS: METOPROLOL SUCC 25MG EXT REL TAB PO SCH (07:43)
[2022-01-07] MEDS: APIXABAN 2.5 MG TAB PO SCH ×2 (07:43→20:21)
--- NOTE | 2022-01-07 21:51 | Hospitalist Progress Note ---
Date of Service January 07, 2022 Assessment & Plan (1) CHF exacerbation: Plan: Acute on chronic systolic heart failure additional likely has acute on chronic diastolic heart failure due to valvular heart disease Troponin mildly elevated no significant spike of troponin elevation secondary to demand ischemia also spurred on by aortic stenosis - Limited echo 12/30: EF 40-45%. Reduced wall motion: Normal basal segment, moderate hypokinesis of mid lateral and anterior segments, akinesis of apex and inferior wall. Severe aortic valve stenosis. Severe mitral calcification. Moderate mitral regurg. Small pericardial effusion without evidence of tamponade cardiology helping with management , daily furosemide dose increased to BID , consideration of cardiac cath next week to eval depressed ejection fraction and RWMA seen on echo in preparation of TAR workup at this time cardiac catheterization has not been formally set up Dr. Bazan and is not rounding over the weekend CT. chest without contrast shows alveolar edema, and a calcified breast mass in left that favors old seroma On 01/04 Patient appears to be deteriorated. Had discussion with and daughter. Daughter discussed options with family, and choose to go the palliative care route. MORTGAGE LOAN OFFICER orders placed. Patient will be transferred to med/surg 01/05 Patiet remains onCXMO. family updated at bedside. increased availability of morphine. 01/07 Continue MORTGAGE LOAN OFFICER. Type 2 diabetes mellitus Hold home metformin Convert to basal bolus while inpatient Glucose checks AC/at bedtime LLE BKA - Patient continued on a [place]/plan from last admission for concerns of cellulitis. Reports was improving and has no spreading erythema but did bump it causing it to separate slightly. Vascular surgery consulted likely need for debridement Dopplers right extremity work-up below,SFA stenosis with dp and posterior tibialis occlusion also Right lower extremity cool, sluggish refill No ulceration Arterial Dopplers with high grade stenosis to SFA Dorsalis pedis and post tibialis occlusion, anticoagulation with apixiban vascular surgery does not feel intervention of bka eschar or SFA stenosis is warranted at this time will use enzymatic debrider on BKA Paroxysmal A. fib Adequately rate controlled Continue apixaban Hyperlipidemia Continue atorvastatin Hypertension Continue enalapril Chronic kidney disease, stage 3 CODE STATUS: DNR/DNI, discussed with patient and family at bedside Diet: Type II DM, heart healthy DVT prophylaxis: Anticoagulated as noted (2) Below-knee amputation of left lower extremity: (3) Aortic stenosis: (4) Acute on chronic systolic heart failure: (5) Diabetes: (6) Hyperlipidemia: (7) Hypertension: Admission and Anticipated Discharge Date Admission Date: December 29, 2021 Subjective Family reports she is comfortable. Review of Systems Review of Systems: All systems reviewed & are unremarkable except as noted in HPI & below Physical Exam Physical Exam: Patient is lying in bed comfortbale PG Care Time/CCT Total # of Minutes Spent Total Time Spent with Patient: Total time spent is greater than 50% in coordination of care (as documented) at patient's floor/unit and/or counseling patient: Coding Level of Care Code 21125 Subseq Hosp Care Lvl 1 Diagnoses CHF exacerbation I50.9 Below-knee amputation of left lower extremity S88.112A Aortic stenosis I35.0 Acute on chronic systolic heart failure I50.23 Diabetes E11.9 Hyperlipidemia E78.5 Hypertension I10
[2022-01-08] MEDS: MoRPHine SULFATE 2 MG/ML CARP IV PRN ×3 (01:08→09:23)
[2022-01-08] MEDS: MoRPHine SULFATE 5 MG/0.25 ML UDP PO PRN ×2 (06:01→08:31)
[2022-01-08] MEDS: APIXABAN 2.5 MG TAB PO SCH (07:38)
[2022-01-08] MEDS: COLLAGENASE OINT 30 GM TUBE EXT SCH (07:39)
[2022-01-08] MEDS: METOPROLOL SUCC 25MG EXT REL TAB PO SCH (07:39)
[2022-01-08] MEDS ORDERED: LORazepam 0.5 MG TAB PO PRN (10:13)
[2022-01-08] MEDS ORDERED: GLYCOPYRROLATE 0.2 MG/ML VIAL IV PRN (10:13)
[2022-01-08] MEDS ORDERED: ONDANSETRON INJ 2 MG/ML 2 ML VIAL IV PRN (10:13)
[2022-01-08] MEDS ORDERED: ONDANSETRON 4 MG OD TAB SL PRN (10:13)
[2022-01-08] MEDS ORDERED: LORazepam 0.5 MG in SYRINGE 0 ML IV PRN (10:13)
[2022-01-08] MEDS: HYDROmorphone INJ 0.5 MG/0.5 ML SYR IV PRN ×2 (11:32→14:18)
[2022-01-08] MEDS ORDERED: HYDROmorphone INJ 0.5 MG/0.5 ML SYR IV SCH (12:30)
--- NOTE | 2022-01-08 12:46 | Palliative Care Consultation ---
Date of Consultation January 08, 2022 Assessment & Plan (1) Pain: She has been restless and calling out at times, despite medication. Given her AUGUSTA and uncontrolled pain, would rotate to hydromorphone 0.5 mg. She did receive one dose and appears to be resting more comfortably. I spoke with her son and daughter at bedside. We discussed change in medication. They asked how often she would receive medication. She has been getting regular prn dosing so we discussed routine dosing of hydromorphone with associated somnolence. They would prefer that she have routine dosing and be comfortable. We also discussed nonphysical pain, such as anxiety with hospitalization and language barrier. They did not feel that was a factor for her. Discussed with RN. (2) SOB (shortness of breath): No respiratory distress at this time. She is satting 100% on 1 L. We discussed difference in approach to treating saturation level versus comfort and the possibiltity of removing O2 as she appears comfortable. Family felt that she had would feel better with O2 on so we will continue at 1L with no titration. (3) Palliative care encounter: I talked with her family at bedside about what to expect. She is likely to within the next day or two. We talked about the possibility of looking at transfer if her condition were to plateau. Unfortunately, her is hard of hearing and does not speak Arabic. We were not able to talk successfully with Ipad interpretter. Family tells me that he has been very depressed and does not leave her. Emotional support provided. (4) PAD (peripheral artery disease): (5) CHF (congestive heart failure): Heart failure chronicity: acute Heart failure type: unspecified Qualified Code(s): I50.9 - Heart failure, unspecified (6) AUGUSTA (acute kidney injury): History of Present Illness Reason for Consultation: Hospice Requesting Physician: Dr. 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 She is s/p BKA left lower extremity for progressive infection. She had previous hospitalization in November for increased pain and swelling of her left leg and was discharged on augmentin. She returned with shortness of breath, orthopnea and LE pain. Echo showed EF 40-45% with sever mitral calcification, severe aortic stenosis and small pericardial effusion. She was also found to have high grade stenosis of right SFA and dorasalis pedis with posterior tibialis occlusion of the right lower extremity. Despite treatment, she is not a surgical candidate and her condition deteriorated. On 01/04, family decided to shift focus of care to comfort and symptom management. She has been on both po and IV morphine with total dosing of 30mg OME in last 24 hours. She has been restless at times and calling out. She does not respond to voice or touch but family tells me that she does respond to them and smile at times. At rest she currently appears comfortable but becomes restless with moaning and facial grimace with even light touch of her left leg. Allergies Allergy/AdvReac Type Severity Reaction Status Date / Time No Known Allergies Allergy Unverified 10/25/21 21:59 Home Medications Medication Instructions Recorded Confirmed Type apixaban 2.5 mg tablet 2.5 mg PO BID #60 tabs 11/05/21 12/20/21 Rx atorvastatin 20 mg tablet 20 mg PO DAILY #30 tabs 11/05/21 12/20/21 Rx enalapril maleate 10 mg tablet 10 mg PO DAILY #30 tabs 11/05/21 12/20/21 Rx metformin 500 mg tablet 500 mg PO BID #60 tabs 11/05/21 12/20/21 Rx albuterol sulfate 90 mcg/actuation 2 inh inhalation Q6H #18 grams 12/17/21 12/20/21 Rx aerosol inhaler amoxicillin 875 mg-potassium 1 tab PO BID #20 tabs 12/17/21 12/20/21 Rx clavulanate 125 mg tablet furosemide 40 mg tablet (Lasix) 40 mg PO DAILY #30 tabs 12/23/21 Rx potassium chloride 20 mEq oral 20 meq PO DAILY #30 ea 12/23/21 Rx packet Patient History Medical History CHF (congestive heart failure) Diabetes Hyperlipidemia Hypertension Surgical History History of left below knee amputation Pacemaker Family History Other No significant family history Social History Smoking Status: Former smoker Second Hand Exposure: No; Hx Alcohol Use: No Hx Substance Use: No Preferred Language: Thai Communication Ability: Effective Communication Tools: IPad Tube Station Attendant Required: Yes Beliefs That Will Affect Care: Rastafarian, Spiritual and Cultural marital status: Current Living Situation: Family How many Children do You have: 3 Feels Safe at Home: Yes Assistive Devices: Wheelchair Review of Systems Review of Systems: Unobtainable due to reduced consciousness Physical Exam Constitutional: no acute distress ENMT: Mouth: + dry oral mucous membranes Respiratory: normal respiratory effort; no labored breathing Cardiovascular: Rate/Rhythm: + irregularly irregular Extremities: + edema Musculoskeletal: left AKA ischemic changes right LE Skin: cool to touch Neurologic: lethargic, unresponsive Results & Data ([facility]) Vital Signs (Past 12 Hours) Vital Signs Temp Pulse Resp BP O2 Del Method O2 Flow Rate 01/08/22 08:41 Nasal Cannula 1 01/08/22 10:49 96.8 F L 78 12 118/76 PG Care Time/CCT Total # of Minutes Spent Total Time Spent: 75 Total Time Spent with Patient: Total time spent is greater than 50% in coordination of care (as documented) at patient's floor/unit and/or counseling patient:goals of care, symptom management, prognosis, what to expect, family education and support Coding Level of Care Code 36802 Initial Inpt Care Lvl 3 Diagnoses Pain R52 SOB (shortness of breath) R06.02 Palliative care encounter Z51.5 PAD (peripheral artery disease) I73.9 CHF (congestive heart failure) I50.9 Heart failure chronicity: acute Heart failure type: unspecified AUGUSTA (acute kidney injury) N17.9
[2022-01-08] MEDS ORDERED: HYDROmorphone INJ 0.5 MG/0.5 ML SYR SC PRN (14:27)
[2022-01-08] MEDS ORDERED: HYDROmorphone HCL 2 MG TAB PO PRN (14:27)
[2022-01-08] MEDS ORDERED: HYOSCYAMINE SULFATE 0.125 MG TAB PO PRN (14:27)
[2022-01-08] MEDS ORDERED: HYDROmorphone HCL 2 MG TAB PO SCH (14:30)
[2022-01-08] MEDS ORDERED: LORazepam 0.5 MG TAB SL PRN (14:32)
--- NOTE | 2022-01-08 17:32 | Discharge Summary ---
Date of Service January 08, 2022 Admission HPI Per Admitting Provider Patient is a 81-year-old female the past medical history of CHF who presents with worsening shortness of breath of 1 day. Recently discharged after similar admission on December 20. Feels her home inhaler has not helped her symptoms. Patient is seen at the bedside with her family. Latvian-speaking. Reports has had about 2 days of shortness of breath, orthopnea, difficulty breathing. Denies chest pain. Does have some increased pain at her wound which she bumped when moving around at home, does not noticed any spreading redness or discharge from the wound. 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 No fevers/chills. +Shortness of breath. Sitting propped up with pillows 2/2 shortness of breath. Has been taking water pill everyday, no missed doses. Has been urinating less. +weakness and fatigue. No tobacco product or alcohol use. No COPD or asthma. Was positive for COVID on 12/17. 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 Was discharged with Augmentin, feels overall the wound improved up until it started to separate slightly when she bumped it at home. Creatinine baseline 11.2, 1.24 on admission High-sensitivity troponin 29.2 BNP 2091, last 1479 discharged 12/23 COVID-positive, was COVID-positive 12/17/2021 Medical History: Reviewed Medications: Reviewed Surgical History: Reviewed Allergies: Reviewed Social History: Denies tobacco/ETOH use Code Status: DNR/DNI per pt and family at bedside Principal Diagnosis Discharge Exam Confirmation of : no pulse, no respirations, no heart sounds and pupils fixed and dilated Discharge Data Allergies Allergy/AdvReac Type Severity Reaction Status Date / Time No Known Allergies Allergy Unverified 10/25/21 21:59 Consultations 12/29/21 16:36 ED Decision to Admit Stat 12/31/21 16:51 Consult Cardiology Routine 12/31/21 16:53 Consult Vascular Surgery Routine 01/08/22 09:23 Consult Palliative Care Routine 01/08/22 10:14 Consult Palliative Care Routine Ordered Studies 12/30/21 16:01 US arterial duplex LE RT Urgent IMPRESSION: 1. Peripheral vascular disease as above with evidence of high-grade stenosis in the distal superficial femoral artery. 2. There is two-vessel runoff to the foot. 3. The distal anterior tibial artery and the dorsalis pedis artery are occluded. 12/30/21 16:13 CT chest diagnostic wo con Urgent IMPRESSION: 1. Cardiomegaly. Interlobular septal thickening consistent with pulmonary edema. Patchy airspace opacities within the lungs favor alveolar edema. 2. Small left and trace right pleural effusion. 3. 5.2 x 3.6 cm partially peripherally calcified hypodense left breast abnormality. This is indeterminate but not highly suspicious and may reflect an old seroma. This could be correlated with surgical history. Hospital Course (1) Acute on chronic diastolic heart failure with preserved ejection fraction: Darleen Davey is an 81 year old female admitted to [facility] from December 29 - 2021 for shortness of breath. She was diagnosed with acute on chronic valvular heart failure. She initially underwent diuresis but given likely underlying coronary artery disease, progressive aortic stenosis, peripheral artery disease, worsening renal failure with worsening shortness of breath she elected to be made comfortable only on January 03. She was treated symptomatically with opiates for her worsening shortness of breath and on January 08. (2) Aortic stenosis: Total Time Total Time Spent Total Time Spent (In Minutes): 15 Discharge Plan Discharge Items Patient Disposition: Other Date/Time: 01/08/22 17:18 Coding Level of Care Code D/C DAY MANAGEMENT <30 MINS Diagnoses Acute on chronic diastolic heart failure with preserved ejection fraction I50.33 Aortic stenosis I35.0
--- NOTE | 2022-01-08 17:32 | Death Pronouncement Note ---
Date of Service January 08, 2022 Pronouncement Note Admission Date December 29, 2021 Date and Time of Date of : 01/08/22 Time of : 17:18 Preliminary Cause of (1) Acute on chronic diastolic heart failure with preserved ejection fraction: (2) Aortic stenosis: Additional Data Confirmation of : no pulse, no respirations, no heart sounds and pupils fixed and dilated Pronouncement Performed By: Attending Physician Family: at bedside Attending/PCP notified?: Yes Attending physician: Kasi Deal MD Was code activated?: No Autopsy requested?: No flat examiner notified?: No Coding Level of Care Code D/C DAY MANAGEMENT <30 MINS Diagnoses Acute on chronic diastolic heart failure with preserved ejection fraction I50.33 Aortic stenosis I35.0
== END 2022-01-08 18:48 | disposition expired | DRG 291 ==
LOC: ED 12:35 → SUATTDRO 17:15 → 4W 17:15 → 3E 01-04 16:15